=== PATIENT | male | born 1940 | race Caucasian/White ===

== ENCOUNTER 2016-12-13 15:35 | Inpatient (IN) | payer MEDICARE, OTHER ==
[~2016-12-13] VITALS: Ht 168.9 cm; Wt 124.1 kg
[~2016-12-13 15:35] MED LIST: ACET325T51 PO; ALBU8.5H4 IH; CLOT30SO TP; CRAN1TAB5 PO; GLIP10TA10 PO; GLUC-123 PO; INSU100V7 SUBQ; LISI-571 PO; LOVA40TA PO; METO25TA6 PO; MULT-1073 PO; RIVA20TA PO; TIOT18CA3 IH
[2016-12-13 15:43] VITALS: BP 121/65; PULSE 82; RESP 22; O2SAT 99
--- NOTE | 2016-12-13 16:10 | ED.REPORT ---
HPI-General Illness Date of Service Dec 13, 2016 ED Provider: Dr. Anastasia Terry Patient is a 76-year-old male with a history of bladder and prostate cancer who presents to the ED reporting generalized weakness onset yesterday. He finished a 2 week course of antibiotics four days ago for a UTI. Patient c/o associated itching, weakness, lethargic, diarrhea, and yellow stools. He has a spotted, red , rash across his back and continuously scratches his arms and neck. Patient reports that he still feels like he has a UTI despite taking his antibiotics as directed. He denies fever chills, chest pain, abdominal pain, and myalgia. Nursing Notes Stated Complaint: WEAKNESS Chief Complaint: General Complaint Nursing Notes Reviewed: Yes Allergies: Coded Allergies: indomethacin (Verified Allergy, Unknown, UNKNOWN, 12/13/16) niacin (Verified Allergy, Unknown, UNKNOWN, 12/13/16) simvastatin (Verified Allergy, Unknown, UNKNOWN, 12/13/16) Uncoded Allergies: BUPROPIRON (Allergy, Unknown, HYPERGLYCEMIA, 12/13/16) Scheduled Albuterol HFA (Proair HFA) 8.5 Gm Hfa.aer.ad 2 PUFFS INHALATION Q4H Clotrimazole 1% (Clotrimazole 1%) 30 Ml Solution 30 ML TP BID Cranberry Conc/C/Bacill Coag (Cranberry Tablet) 1 Each Tablet 2 EACH PO DAILY Glipizide (Glipizide) 10 Mg Tablet 10 MG PO BID Glipizide (Glipizide) 10 Mg Tablet 10 MG PO BID Gluc/Dontae-MSM#2/C/D3/Marcos/Born (Racgovdovv-Skeddlzgjgb-YDV Tab) 1 Each Tablet 1 EACH PO DAILY Insulin Glargine (Lantus U100 Insulin Vial) 100 Unit/Ml Vial 40 UNIT SUBQ QAM Insulin Glargine (Lantus U100 Insulin Vial) 100 Unit/Ml Vial 32 UNIT SUBQ QPM Insulin Glargine (Lantus U100 Insulin Vial) 100 Unit/Ml Vial 1 UNIT SUBQ DAILYWL Insulin Glargine (Lantus U100 Insulin Vial) 100 Unit/Ml Vial 1 UNIT SUBQ HS Lisinopril (Lisinopril) 5 Mg Tablet 5 MG PO DAILY Lovastatin (Lovastatin) 40 Mg Tablet 40 MG PO HS Metoprolol Tartrate (Metoprolol Tartrate) 25 Mg Tablet 25 MG PO BID Multivits-Min/FA/Lycopene/Lut (Centrum Silver Tablet) 1 Each Tablet 1 EACH PO DAILY Rivaroxaban (Xarelto) 15 Mg Tablet 15 MG PO QPM Rivaroxaban (Xarelto) 15 Mg Tablet 15 MG PO DAILYWD Tiotropium [employer] [place] [employer] (Spiriva) 18 Mcg Cap.w.dev 1 CAP IH DAILY Tiotropium [employer] (Spiriva) 18 Mcg Cap.w.dev 18 MCG IH MORNING Scheduled PRN Acetaminophen (Acetaminophen) 325 Mg Tablet 325 MG PO Q4H PRN PRN For Fever Acetaminophen (Acetaminophen) 325 Mg Capsule 325 MG PO PRN For Pain Albuterol HFA (Proair HFA) 8.5 Gm Hfa.aer.ad 2 PUFFS INHALATION Q4H PRN PRN For Shortness of Breath Clotrimazole (Itch Relief) 1 % Cream..g. 15 GM TP PRN For Itching General Time Seen by MD: 16:10 Chief Complaint Weakness Hx Obtained From: Patient, Spouse Arrived By: Walk-in Sudden in Onset?: Yes Onset Occurred: 1 day ago Symptom Duration: Since onset Severity: Current: No pain currently Recent Healthcare: Recent doctor visit Similar Sx Previous: Yes Past Medical History Past Medical History bladder and prostate cancer DVT Reports: Hyperlipidemia Past Surgical History baldder reconstruction prostate surgery Reports: Appendectomy, Cholecystectomy Smoking History Former Smoker Social History Other Social History: Good social support Ambulatory Status Independent Review of Systems yellow stools Full Review of Systems Constitutional: Reports: Weakness - generalized, Denies: Chills, Fever Cardiovascular: Denies: Chest pain GI: Reports: Diarrhea, Denies: Abdominal pain Musculoskeletal: Denies: Myalgia Skin: Reports Itching, Reports Rash (on back) Complete sys rev & neg: except as marked. Physical Exam Vital Signs Vital Signs Date Time Temp Pulse Resp B/P Pulse Ox O2 Delivery O2 Flow Rate FiO2 12/13/16 18:27 82 21 105/53 100 Room Air 12/13/16 18:00 84 16 101/36 100 Room Air 12/13/16 15:43 36.4 82 22 121/65 99 Room Air Initial VS: Reviewed, Vital signs normal General/Constitutional: Well-developed, Well-nourished Head / Eyes: Atraumatic, Normocephalic, PERRL Neck: Supple, Non-tender, Full range of motion Respiratory: Breath sounds normal, Clear to auscultation, No respiratory distress Cardiovascular: Regular rate & rhythm, Heart sounds normal, Intact distal pulses Abdomen / GI: Soft, Non-tender, No guarding, No rebound, No distention Back: No CVA tenderness Extremities: Vascular intact, Neuro intact, No swelling, No tenderness Skin: Warm, Dry, No cyanosis Psychiatric: Mood/affect normal, Behavior normal, Normal thought content General/Constitutional: Awake, Alert, Well appearing Head / Eyes: PERRL, No nystagmus Neurologic: Oriented X3, No motor deficits, No sensory deficits Drowsy Interpretation & Diagnostics Lab Results Interpretation Result Diagram: 12/13/16 1609 12/13/16 2205 Test 12/13/16 16:09 12/13/16 16:49 12/13/16 16:55 White Blood Count 9.9th/mm3 (3.8-10.1) Red Blood Count 4.40mil/mm3 (4.40-5.80) Hemoglobin 12.4g/dL (13.8-17.2) Hematocrit 38.2% (41.0-50.0) Mean Corpuscular Volume 86.8fL (81-100) Mean Corpuscular Hemoglobin 28.2pg (27.0-35.0) Mean Corpuscular Hemoglobin Concent 32.5% (32.0-37.0) Red Cell Distribution Width 16.9% (12.3-15.4) Platelet Count 307bil/L (150-400) Neutrophils (%) (Auto) 83.3% (40-74) Lymphocytes (%) (Auto) 9.2% (14-46) Monocytes (%) (Auto) 5.6% (4-12) Eosinophils (%) (Auto) 1.2% (0-5) Basophils (%) (Auto) 0.2% (0-3) Prothrombin Time 12.4sec (8.1-12.5) Prothromb Time International Ratio 1.16ratio Uric Acid 7.4mg/dL (2.6-7.2) Magnesium Level 2.0mg/dL (1.6-2.6) Total Bilirubin 4.8mg/dL (0.0-1.2) Aspartate Amino Transf (AST/SGOT) 111U/L (0-50) Alanine Aminotransferase (ALT/SGPT) 246U/L (0-44) Alkaline Phosphatase 598U/L (25-160) Total Protein 7.9g/dL (6.4-8.4) Albumin 3.9g/dL (3.4-5.0) Hold Hyman Top Tube Received (Received) Urine Color Yellow (YELLOW) Urine Appearance Clear (CLEAR,HAZY) Urine pH 7.0 (5.0-8.0) Urine Specific [place] 1.005 (1.003-1.035) Urine Protein 30mg/dL (NEG,TRACE) Urine Glucose (UA) 100mg/dL (NEGATIVE) Urine Ketones Negativemg/dL (NEGATIVE) Urine Occult Blood Small (NEGATIVE) Urine Nitrite Negative (NEGATIVE) Urine Bilirubin Negative (NEGATIVE) Urine Urobilinogen 1.0mg/dL (NORMAL) Urine Leukocyte Esterase Trace (NEGATIVE) Urine RBC 0-2/hpf (0-2) Urine WBC 0-5/hpf (0-5) Urine Epithelial Cells None/hpf (NONE-MOD) Urine Crystals None seen (NONE SEEN) Urine Bacteria Few/hpf (NONE-FEW) Urine Hyaline Casts None/lpf (NONE) Urine Granular Casts None seen (NONE SEEN) Urine Waxy Casts None seen (NONE SEEN) Urine Red Blood Cell Casts None seen (NONE SEEN) Urine White Blood Cell Casts None seen (NONE SEEN) Urine Mucus None seen (None Seen) Urine Trichomonas None seen (NONE SEEN) Urine Yeast None (NONE SEEN) Urinalysis Comment None Urine Culture Reflexed Indicated Urine Random Creatinine 154mg/dL (22-328) Urine Random Sodium 114mEq/L Urine Random Potassium 12.6mEq/L ECG Interpretation Time: 18:49 Interpreted by: ED physician Normal ECG Interpretation: Normal ECG w/ rate of... (81), Normal rate, Normal sinus rhythm, No acute ischemic changes Re-Eval/Medical Decision Med Decision/Clinical Course The patient was sent here for labs. He struggled to be in worsening renal failure and has an acute hepatitis. This likely that his hepatitis could be from his Bactrim use or he may have an infection. The patient really did not admitted for hydration. He is also noted to be hyperkalemic and an EKG was obtained and did not show any peaked T waves. Counseled Regarding: Diagnosis, Lab results, Need for admission Discharge & Departure Primary Impression: Acute renal failure Acute renal failure type: unspecified Qualified Code: N17.9 - Acute kidney failure, unspecified Additional Impression: Hepatitis Disposition: ADMITTED TO HOSPITAL Discharge Condition All VS Reviewed: Yes Condition: Stable Referrals: Garry Grullon MD (PCP) Alexis Attestation Portion of this note were transcribed by Celia Oh. I, Dr. Terry, personally performed the history, physical exam, and medical decision-making: I reviewed and confirmed the accuracy for the information in the transcribed note. Signed by: alexis Clifford, 12/13/16 0000 copies to: Garry Grullon MD, Jena M MD Dec 13, 2016 16:10 CELIA OH Dec 13, 2016 16:39 performed the history, physical exam, and medical decision-making: I reviewed and confirmed the accuracy for the information in the transcribed note. Signed by: alexis Clifford, 12/13/16 0000 copies to: Garry Grullon MD, Jena M MD Dec 13, 2016 16:10 CELIA [place] Dec 13, 2016 16:39
[2016-12-13] MEDS: 0.9% Sodium Chloride 1,000 ML IV SCH ×7 (16:53→23:37)
[2016-12-13 16:56] LABS: BASOPHILS % (AUTO) 0.2 % (0-3); EOSINOPHILS % (AUTO) 1.2 % (0-5); MONOCYTES % (AUTO) 5.6 % (4-12); Mean Corpuscular Hemoglobin 28.2 pg (27.0-35.0); Mean Corpuscular Volume 86.8 fL (81-100); NEUTROPHILS % (AUTO) 83.3 % (40-74); Platelet Count 307 bil/L (150-400)
[2016-12-13 16:58] LABS: INR 1.16 ratio
[2016-12-13 17:14] LABS: APPEARANCE,URINE CLEAR (CLEAR,HAZY); COLOR,URINE YELLOW (YELLOW)
[2016-12-13 17:15] LABS: OCCULT BLOOD,URINE SMALL (NEGATIVE)
[2016-12-13] MEDS ORDERED: ALBU8.5H2 INHALATION ×2 (17:54→21:08)
[2016-12-13] MEDS ORDERED: RIVA15TA PO ×2 (17:54→21:08)
[2016-12-13 18:00] VITALS: BP 101/36; PULSE 84; RESP 16; O2SAT 100
[2016-12-13] MEDS ORDERED: Lactulose 20 Gm/30 mL 30 mL Syrup PO ONE (18:25)
[2016-12-13 18:27] VITALS: BP 105/53; PULSE 82; RESP 21; O2SAT 100
--- NOTE | 2016-12-13 18:38 | PCM.HPMED ---
Subjective Date of Service Dec 13, 2016 Primary Provider: Admitting Physician: Primary Care Physician: Garry Grullon MD Attending Physician: Chief Complaint: Generalized weakness HISTORY was OBTAINED FROM PATIENT / [facility] NOTES History of present illness Thomas Whittaker has had 3 days of weakness and fatigue and itch sent by primary care with new elevated creatinine of 4, recent Bactrim use x 2weeks for recurrent/prolonged UTI with history of bladder cancer and bladder reconstruction history. Concurrent diarrhea with the Bactrim, prior to that bronchitis treated with azithromycin x 1 week then w/ amoxicilin for another week end of oct 2016. On 12/10/2016, rising LFTs and creatinines noted by oncologist who deemed due to antibiotic use. yellow stool. ongoing urinary odor/discoloration w/ minimal bactrim benefit. ongoing jock itch/rash penile/scrotal. self caths. associated low bp throughout several days SBP 90s. no new medications/ no new herbs. never cardiac issues. In the ER IV fluids 12/10/2016-oncologist visit Review of Systems - none of the following - F/C/sick contact / wt change/ ELLIOTT / sob / cough / cp / acid reflux / n/v / bleeding/bruising / change in voiding ambulates chronic leg swelling - disliked trial of HCTZ in the past tremors more evident lately per FAMILY HX no prostate cancer SOCIAL HX former smoker, no transfusions never illicit drug use MEDICATIONS [id number] mg Scheduled Clotrimazole 1% (Clotrimazole 1%) 30 Ml Solution 30 ML TP BID Cranberry Conc/C/Bacill Coag (Cranberry Tablet) 1 Each Tablet 2 EACH PO DAILY Glipizide (Glipizide) 10 Mg Tablet 10 MG PO BID Gluc/Dontae-MSM#2/C/D3/Marcos/Born (Pndkyrygvg-Oevbycsvztv-MPD Tab) 1 Each Tablet 1 EACH PO DAILY Insulin Glargine (Lantus U100 Insulin Vial) 100 Unit/Ml Vial 40 UNIT SUBQ QAM Insulin Glargine (Lantus U100 Insulin Vial) 100 Unit/Ml Vial 32 UNIT SUBQ QPM Lisinopril (Lisinopril) 5 Mg Tablet 5 MG PO DAILY Lovastatin (Lovastatin) 40 Mg Tablet 40 MG PO HS Metoprolol Tartrate (Metoprolol Tartrate) 25 Mg Tablet 25 MG PO BID Multivits-Min/FA/Lycopene/Lut (Centrum Silver Tablet) 1 Each Tablet 1 EACH PO DAILY Rivaroxaban (Xarelto) 20 Mg Tablet 15 MG PO daily started 10-04- Tiotropium [place] (Spiriva) 18 Mcg Cap.w.dev 1 CAP IH DAILY Scheduled PRN Acetaminophen (Acetaminophen) 325 Mg Tablet 325 MG PO Q4H PRN PRN For Fever Albuterol HFA (Albuterol HFA) 8.5 Gm Hfa.aer.ad 2 PUFF IH Q4 PRN PRN For Wheezing Past Medical/Surgical HX IVC filter/cholecystectomy/appendectomy/ORIF right fibula Hyperlipidemia hypertension Diabetes mellitus Sinus congestion/cataracts PE/DVT postop, 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 Allergies Coded Allergies: indomethacin (Verified Allergy, Unknown, UNKNOWN, 12/13/16) niacin (Verified Allergy, Unknown, UNKNOWN, 12/13/16) simvastatin (Verified Allergy, Unknown, UNKNOWN, 12/13/16) Uncoded Allergies: BUPROPIRON (Allergy, Unknown, HYPERGLYCEMIA, 12/13/16) PMH Social History Hx Alcohol Use: Yes (rare) Hx Substance Use: No Hx Tobacco Use: Yes (quit 12 years ago) Smoking Status: Former Smoker Exam Vital Signs Vital Sign - Last Date Time Temp Pulse Resp B/P Pulse Ox O2 Delivery O2 Flow Rate FiO2 12/13/16 18:27 82 21 105/53 100 Room Air 12/13/16 15:43 36.4 Lab and Diagnostics Labs Exam on admission NAD A and O x 3 mood affect WNL NC/AT no icterus no injected eyes EOMI PERRL /no pharyngeal lesions/ no oral lesions / hearing intact / dry mouth Supple neck CTAB equal chest rise / no accessory muscle use / speaks in full sentences / no rrw RRR S1 S2 / no mrg / 2+ radial pulses Soft nt nd + BS no hepatosplenomegaly moderate edema shins no cyanosis no ecchymosis of lower extremities No rash / no jaundice STOVER EKG SR no ST elevations Trop neg INR 1.16 procalcitonin lactic acid UA negative for infection LFT AST ALT alkaline phosphatase are elevated but less than November 2016, bilirubin is more elevated worse Imaging 11/2016 -: 12/06/16 0913 PROCEDURE: CT CHEST, ABDOMEN AND PELVIS WITHOUT CONTRAST ([id number]) INDICATIONS: RESECTED BLADDER CANCER, SURVEILLANCE TECHNIQUE: After the administration of oral contrast, 5 mm thick sections acquired from the lung apices to the symphysis pubis. 5 mm thick coronal and sagittal reformats acquired, with additional 7 mm coronal MIP reformats through the lungs. For radiation dose reduction, the following was used: automated exposure control, adjustment of mA and/or kV according to patient size. COMPARISON: [facility], CT, CT CHEST ABD PELVIS WO CON, 10/20/2015 , 12:15. [facility], CT, CHEST/ABD/PELVIS/ WO CON (PNL), 09/21/2014 , 9:56. [facility], CT, CHEST/ABD/PELVIS/ WO CON (PNL), 03/14/2014, 11:29. [facility], CT, CHEST/ABD/PELVIS/ WO CON (PNL), 06/08/2013, 10:59. [facility], CT, CHEST/ABD/PELVIS/ WO CON (PNL), 08/11/2012, 8:49. [facility], CT, CHEST/ABD/PELVIS/ WO CON (PNL), 01/01/2012, 10 :27. [facility], CT, ABD/PELVIS W/O CON (PNL), 07/17/2011, 11: 04. CT, CHEST/ABD/PELVIS/ WO CON (PNL), 01/04/2011, 12:13. [facility], CT, CHEST/ABD/PELVIS/ WO CON (PNL), 06/18/2010, 12:03. CT, CHEST ANGIO-PE, 04/03/2010, 13:06. CT, ABD/PELVIS W&WO CON (PNL), 02/22/2010, 14:10. CT, ABD/PELVIS W&WO CON (PNL), 05/24/2009, 18:52. FINDINGS: Image quality: Excellent. CHEST: Lungs and pleura: No acute pulmonary opacities. Mild emphysematous disease is noted in the lung apices. No pleural effusions or pneumothorax. Central and peripheral airways are patent are normal in caliber. Mediastinum: Heart size is normal. Atherosclerotic calcifications are noted in the aorta, great vessels and the coronary vasculature. No pericardial effusion. No mediastinal adenopathy by CT size criteria. Thoracic aorta and central pulmonary arteries are normal in size. Esophagus is normal in caliber. No hiatal hernia. Chest wall: No axillary or supraclavicular adenopathy by size criteria. Thyroid gland is normal where visualized. ABDOMEN: Solid organs: Liver and spleen are normal in size. Gallbladder is surgically absent. Pancreas is normal in contours. No adrenal nodules. Both kidneys are normal in size, without hydronephrosis or nephrolithiasis. Probable cysts in the midpole of the right kidney and the superior pole left kidney aren't stable compared to prior examination. Ureteral diversion procedure has been performed. Peritoneum and bowel: Small and large bowel loops are normal in caliber and wall thickness. Circumferential wall thickening involving the rectum is noted. No free fluid or air. Nodes and vessels: No retroperitoneal or mesenteric adenopathy by size criteria. 3.8 cm infrarenal abdominal aortic aneurysm is stable compared to prior examination. IVC filter is stable compared to prior examination. Miscellaneous: No ventral hernias. PELVIS: Genitourinary: Postsurgical changes compatible with cystectomy and neobladder formation are stable compared to prior examination. Miscellaneous: No inguinal hernias or adenopathy. Bones: No suspicious bony lesions. No vertebral body compression fractures. Spine degenerative disc disease and facet arthropathy are noted. Wound IMPRESSION: 1. Stable examination compared to 10/20/2015. 2. No evidence of recurrent or metastatic bladder cancer. 3. Intrarenal abdominal aortic aneurysm stable compared to prior examinations. 4. Atherosclerosis including the coronary vasculature. 5. Mild bilateral lung emphysema. 6. Status post cystectomy and neobladder formation. 7. The circumferential wall thickening involving the rectoanal junction. Please correlate with direct physical findings to exclude neoplastic process. Result Diagram: 12/13/16 1609 12/13/16 1609 Assessment & Plan Active issues and reason for admission AK I with elevated potassium/hyponatremia -- IV fluid normal saline/duo nebs/lactulose -- Creatinine baseline 1.4-1.5 --hold lisinopril --serial labs REcurrent UTI symptoms --treat penile/scrotal rash - nystatin, consider parental azole when LFTs normalizes --UA unremarkalbe --dey placement for intake / output measurements - self caths at home New Elevated transaminitis/hyperbilirubinemia since November 2016 with a history of cholecystectomy, likely due to low BP -- Mild hypotension in the ER 101/36, heart rate 84 -- CT abdomen and pelvis November 2016 reviewed --hep panel pending, no risk factors. -- hold lisinopril/beta tara Chronic issues known prior to admission, present on admission DM, Dyslipidemia DVT/PE hx COPD --hold statin, contineu home lantus BID, SSI, tiotropium Diet DM/renal DVT prophylaxis xaralto scd ambulate Code full Disposition inpt Assessment and plan were discussed with patient family. Rhea Anderson MD Dec 13, 2016 18:38
[2016-12-13] MEDS ORDERED: Alum-Mag Hydrox-Simeth 30 mL Suspension PO PRN (19:00)
[2016-12-13] MEDS ORDERED: Glucose 40% Oral Gel 15 Gm Tube PO PRN (19:15)
[2016-12-13] MEDS ORDERED: Albuterol 1.25 mg/3 mL Inhalation Solution NEB PRN (19:15)
[2016-12-13] MEDS ORDERED: Calcium GLUCO 10% (mEq) Inj 4.65 MEQ in Dextrose 5% 50 ML IV ONE (19:20)
[2016-12-13 19:36] VITALS: BP 154/71; PULSE 85; RESP 22; O2SAT 98
[2016-12-13] MEDS: Albuterol 1.25 mg/3 mL Inhalation Solution NEB SCH (20:30)
[2016-12-13] MEDS ORDERED: ACET325C PO (21:08)
[2016-12-13] MEDS ORDERED: INSU100V7 SUBQ ×2 (21:08)
[2016-12-13] MEDS ORDERED: TIOT18CA3 IH (21:08)
[2016-12-13] MEDS ORDERED: CLOT15CR66 TP (21:08)
[2016-12-13] MEDS ORDERED: GLIP10TA10 PO (21:08)
[2016-12-13] MEDS: Insulin LISPRO 300 Unit/3 mL Inj SUBQ SCH (22:00)
[2016-12-13] MEDS: Albuterol-Ipratropium 3 mL Inhalation Solution NEB ONE ×2 (22:53→22:54)
--- NOTE | 2016-12-13 23:09 | NUR ---
Critical lab results technician called with critical BUN lab of 84, paged assembler 1st shift hospitalist via [employer] page. Awaiting response.
[2016-12-13] MEDS: Insulin GLARgine 100 Unit/mL Syringe SUBQ SCH (23:27)
[2016-12-14] VITALS (8 sets, daily range): BP systolic 99–148; BP diastolic 57–71; PULSE 92–103; RESP 18–20; O2SAT 98–99
[2016-12-14] MEDS: 0.9% Sodium Chloride 1,000 ML IV SCH ×9 (00:20→10:20)
[2016-12-14] MEDS: Heparin 5,000 Unit/mL Inj SUBQ SCH ×3 (03:25→16:50)
[2016-12-14 05:07] LABS: Hepatitis A Antibody IgM Negative (Negative); Hepatitis B Core Antibody IgM Negative (Negative)
[2016-12-14 06:24] LABS: Phosphorus 5.6 mg/dL (2.5-4.9)
[2016-12-14 06:31] LABS: Mean Corpuscular Hemoglobin 28.3 pg (27.0-35.0); Mean Corpuscular Volume 86.5 fL (81-100)
--- NOTE | 2016-12-14 07:52 | NUR ---
Admit Patient arrived at 1920 via gurney, able to transfer laterally independently. A&O, able to make needs known. denies pain at this time.
[2016-12-14] MEDS: Insulin LISPRO 300 Unit/3 mL Inj SUBQ SCH ×4 (08:00→21:37)
[2016-12-14] MEDS: Albuterol 1.25 mg/3 mL Inhalation Solution NEB SCH ×2 (08:07→20:02)
[2016-12-14] MEDS: Tiotropium 18mcg/Cap 5 Capsule Inhaler Kit INHALATION SCH ×2 (08:30→10:18)
[2016-12-14] MEDS: Insulin GLARgine 100 Unit/mL Syringe SUBQ SCH (08:34)
[2016-12-14] MEDS ORDERED: Lactulose 20 Gm/30 mL 30 mL Syrup PO ONE (10:00)
--- NOTE | 2016-12-14 12:40 | DRSVH ---
PROCEDURE: US ABDOMEN ([id number]) INDICATIONS: elevated lfts TECHNIQUE: Real-time scanning was performed of the abdominal and retroperitoneal organs, with image documentatio n. COMPARISON: None. FINDINGS: Liver: Liver is normal in size and homogeneous in echotexture. The Liver has a diffusely increased e chotexture which typically represents fatty infiltration; however, finding is nonspecific and other e tiologies including hepatic cirrhosis can have a similar appearance. Please correlate with clinical a nd laboratory findings. Gallbladder: Gallbladder is surgically absent Biliary ducts: Intrahepatic bile ducts are non-dilated. Extrahepatic bile duct caliber measures 4.8 mm. Normal is 6-7 mm or less in diameter, or 10 mm or less post-cholecystectomy. Pancreas: Visualized portions of the pancreas are sonographically normal. Spleen: Spleen is normal in size and homogeneous in echotexture. Kidneys: Kidneys are normal in size and echotexture. Right kidney measures 12.6 cm long; left kidne y measures 13.5 cm long. No hydronephrosis or nephrolithiasis. No solid masses. Bilateral renal cys ts are noted. Aorta: Secured by bowel gas and cannot be evaluated. Iliacs: Secured by bowel gas and cannot be evaluated. IVC: Intrahepatic inferior vena cava is patent. Miscellaneous: No free abdominal fluid. Panda catheter noted in the bladder. IMPRESSION: 1. Echogenic liver. Finding typically represents fatty infiltration; however, finding is nonspecific and correlation with clinical and laboratory findings is recommended to exclude other etiologies incl uding hepatic cirrhosis. 2. Status post cholecystectomy. 3. Nonvisualization of the abdominal aorta and the iliac vasculature secondary to bowel gas. 4. Renal cysts. Dictated by: Claudette Morgan MD, PhD on 12/14/2016 at 12:37 Approved by: Claudette Morgan MD, PhD on 12/14/2016 at 12:38
--- NOTE | 2016-12-14 12:56 | NUR ---
Case Management: IMM given and explained to pt and at 12:40. Columba ZHU RN
[2016-12-14] MEDS ORDERED: SODIUM CHLORIDE 0.45% IV SCH (13:27)
[2016-12-14] MEDS ORDERED: SODIUM BICARB IV SCH (13:27)
--- NOTE | 2016-12-14 13:30 | PCM.PNMED ---
Subjective Date of Service Dec 14, 2016 Subjective Tired, no other complaints, says his hand tremor is chronic, at least a couple of years, and he doesn't think it worsens with albuterol. Exam Vital Signs Vital Sign - Last Date Time Temp Pulse Resp B/P Pulse Ox O2 Delivery O2 Flow Rate FiO2 12/14/16 10:02 103 12/14/16 09:57 36.3 20 127/65 98 Nasal Cannula 2.00 Intake and Output 12/13/16 12/13/16 12/14/16 Cumulative From/Thru 15:00 23:00 07:00 12/13/16 15:43 - 12/14/16 06:39 Intake Total 1000 ml 615 ml 1615 ml Balance 1000 ml 615 ml 1615 ml IV Total 1000 ml 615 ml 1615 ml Exam Alert and oriented Heart: reg Lungs: clear Abd: protuberant (he says his usual), tympanitic but soft with normal BT Extrem: mild tremor of the hands, no pedal edema IVs and Medications Medications Reviewed: Medications were reviewed in detail Lab and Diagnostics Result Diagram: 12/14/16 0530 12/14/16 0530 Assessment & Plan ARF with elevated potassium/hyponatremia/metabolic acidosis, most likely due to Bactrim -- Nephrology has consulted, note still pending -- IV fluid as per nephrology changed to 1/2NS with an amp of bicarb and oral bicarb started -- Kayexylate per nephrology -- Creatinine baseline 1.4-1.5 -- lisinopril held -- serial labs -- renal ultrasound: Kidneys are normal in size and echo texture. Right kidney measures 12.6 cm long; left kidney measures 13.5 cm long. No hydronephrosis or nephrolithiasis. No solid masses. Bilateral renal cysts are noted. 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 s/p prostatectomy bladder reconstruction, adjuvant chemotherapy, self catheterizes, has Recurrent UTIs Recurrent UTI symptoms --treat penile/scrotal rash - nystatin --UA unremarkalbe --dey placement for intake / output measurements - self caths at home New Elevated transaminitis/hyperbilirubinemia since November 2016 with a history of cholecystectomy, possibly due to low BP -- Mild hypotension in the ER 101/36, heart rate 84 -- CT abdomen and pelvis (without contrast) November 2016 with unremarkable liver and bile ducts -- abd u/s today: Liver: Liver is normal in size and homogeneous in echotexture. The Liver has a diffusely increased echotexture which typically represents fatty infiltration; however, finding is nonspecific and other etiologies including hepatic cirrhosis can have a similar appearance. Gallbladder: Gallbladder is surgically absent. Biliary ducts: Intrahepatic bile ducts are non-dilated. Extrahepatic bile duct caliber measures 4.8 mm. Normal is 6-7 mm or less in diameter, or 10 mm or less post-cholecystectomy. -- hep panel negative -- hold lisinopril/beta tara Diabetes Mellitus - continue home lantus BID, SSI Other Chronic issues known prior to admission, present on admission - Dyslipidemia - statin held due to abnl LFT - DVT/PE hx - COPD - continue tiotropium VTE Mechanical Devices: Intermittant Pneumatic CD Yudelka Perez MD Dec 14, 2016 13:30
--- NOTE | 2016-12-14 13:42 | CONS ---
[address] [address] CONSULTATION REPORT PATIENT: ANGEL SOLIS I : 1940 MR#: [id number] ADMIT: 12/13/2016 JOB ID: [id number] DATE OF SERVICE: 12/14/2016 RENAL CONSULTATION: HISTORY: The patient is a very pleasant 76-year-old white male who was admitted to [facility] for acute kidney injury. Renal consultation is being sought for further evaluation of his renal dysfunction. He has a rather complicated urinary tract history. Approximately seven years ago, he was found to have bladder cancer and underwent a radical cystectomy with a neobladder reconstruction from his small intestine. He had follow up chemotherapy and states that he has been doing fair since that time. His biggest issue is that he has had recurrent urinary tract infections. He denies any stone formation with this. He does state that he has to self cath himself several times a day. Approximately three weeks ago, he developed symptoms of a urinary tract infection and was placed on full strength Bactrim for 10 days. He completed a course of his medication and states that prior to this he had been treated with both amoxicillin and azithromycin approximately a month before for a nonspecific upper respiratory tract infection. Of note, his creatinine level in June of 2016 was 1.68, and on December 05, 2016, it was 2.02. He states that he had been feeling quite weak, with some nausea but no vomiting. He denies any vomiting, diarrhea, cough, wheezing, fever, chills or rash. He does note that he has had some generalized pruritus for the last week or so and he has a chronic tremor which has worsened considerably in the last week or so. He also states that he has had some loose stool but no diarrhea. In addition, he states that he has had dark urine for the last week or so. In the emergency department, he was found to be hypotensive and tachycardic. At time of admission, his BUN and creatinine were 83 and 3.3 respectively. His liver function studies were all significantly elevated and his potassium was 5.9. I was contacted yesterday evening by the hospitalist and made fluid recommendations. This morning the patient states that he feels considerably better. However, his tremor persists. His blood pressure is improved and his creatinine has come down to 85 and 3.96. PAST MEDICAL HISTORY: Is significant for bladder cancer and radical cystectomy with construction of a neobladder. Past medical history is also significant for some probable chronic kidney disease secondary to chronic interstitial nephritis for recurrent urinary tract infections. His past medical history is also significant for prior deep venous thrombosis, hyperlipidemia, insulin-requiring diabetes mellitus, COPD, essential tremor, morbid obesity and what sounds like benign prostatic hypertrophy. PAST SURGICAL HISTORY: Is significant for multiple cystoscopies with bladder cystectomy as detailed above. He also has had an IVC filter, cholecystectomy, appendectomy, ORIF of the right fibula. He is allergic to a BUPROPION, INDOMETHACIN, NIACIN, and SIMVASTATIN. SOCIAL HISTORY: He has a history of tobacco use but states he quit 12 years ago. He takes ethanol on rare occasions. He is normally active in his limited activities of daily living which has been considerably less with his recent illness. His medications at time of my evaluation, include insulin, Spiriva, oxycodone, albuterol. FAMILY HISTORY: Noncontributory. REVIEW OF SYSTEMS: Is detailed above. Otherwise is noncontributory. PHYSICAL EXAMINATION: Revealed a moderately obese 76-year-old gentleman who was alert and oriented x3, in no distress at time of my evaluation. HEENT examination is remarkable for some generalized flushing of the face and multiple telangiectasias were noted over the malar area. Mucous membranes were somewhat dry and sclerae were pale. Neck is supple without adenopathy, thyromegaly, or jugular venous distention. Lungs are clear to auscultation though somewhat diminished. He also had evidence of an increased AP diameter. Heart was regular and rhythmical with a soft systolic murmur. Abdomen was soft, but somewhat distended with diminished bowel sounds. There was no tenderness, rebound, guarding, masses or hepatosplenomegaly. Extremities did not show any evidence of any clubbing, cyanosis or edema. Skin turgor was diminished and there is no evidence of any rashes. LABORATORY EXAMINATION: This morning, his sodium is 138, potassium 5.8, chloride 113, bicarbonate is 8. BUN and creatinine were 85 and 3.96 with a glucose of 143. His uric acid was 7.4, phosphorus is 5.6, total bili was 4, alkaline phosphatase was 428, AST was 98, ALT was 203. Urinalysis showed a specific gravity of 1.005, pH was 7. Tests for protein and glucose were both positive as was test for occult blood. Urinalysis was personally reviewed by me and revealed a large amount of mucus with a number of dirty brown casts consistent with acute tubular necrosis. IMPRESSION: 1. Acute tubular necrosis secondary to acute interstitial nephritis from Bactrim and dehydration. 2. Mixed anion gap and non-anion gap metabolic acidosis secondary to #1. 3. Hyperkalemia. 4. Elevated liver function studies secondary to severe dehydration and hypoperfusion. RECOMMENDATION: I would like to get a right upper quadrant and a renal ultrasound along with an acetaminophen level. I would also like to change his maintenance IV to half-normal saline with 1 amp of sodium bicarbonate to run at 80 mL an hour. Once again, I would like to thank you for allowing me to participate in the care of this most pleasant but unfortunate patient. I will be following him closely with you.
[2016-12-14] MEDS: SODIUM BICARB IV SCH (14:16)
[2016-12-14] MEDS: SODIUM CHLORIDE 0.45% IV SCH (14:16)
[2016-12-14] MEDS: Ondansetron 2 mg/mL 2 mL Inj IVPUSH PRN (18:23)
--- NOTE | 2016-12-14 19:15 | NUR ---
Nausea Patient had 3 short episodes of nausea this shift. Patient declined any anti-nausea medication till end of shift due to quick nature of nausea bouts. After anti-nausea medication patient reports nausea is staying away. Care is ongoing.
[2016-12-15] VITALS (9 sets, daily range): BP systolic 137–166; BP diastolic 61–77; PULSE 95–108; RESP 18–20; O2SAT 94–98
[2016-12-15] MEDS: SODIUM BICARB IV SCH ×5 (00:34→22:21)
[2016-12-15] MEDS: SODIUM CHLORIDE 0.45% IV SCH ×5 (00:34→22:21)
[2016-12-15] MEDS: Heparin 5,000 Unit/mL Inj SUBQ SCH ×3 (01:06→17:11)
--- NOTE | 2016-12-15 01:11 | NUR ---
GI; pt c/o dry mouth. Popsickle given- pt tolerated well.
[2016-12-15] MEDS ORDERED: 0.9% Sodium Chloride 500 ML ONE (07:26)
[2016-12-15] MEDS: Ondansetron 2 mg/mL 2 mL Inj IVPUSH PRN (07:39)
[2016-12-15] MEDS: Insulin LISPRO 300 Unit/3 mL Inj SUBQ SCH ×4 (08:00→22:00)
[2016-12-15] MEDS: Tiotropium 18mcg/Cap 5 Capsule Inhaler Kit INHALATION SCH (08:46)
[2016-12-15] MEDS: Insulin GLARgine 100 Unit/mL Syringe SUBQ SCH ×2 (08:49→18:15)
--- NOTE | 2016-12-15 10:43 | NUR ---
MARKUS signed by patient Addendum: 12/16/16 at 1616 by PERRY BROWN signed by patient's
--- NOTE | 2016-12-15 12:33 | PCM.PNMED ---
Subjective Date of Service Dec 15, 2016 Subjective The patient has had some improvement in the last 24 hours. He has had a 1940 and was 1900 in urine output. His blood pressure has been fair with one isolated drop in his systolic blood pressure yesterday. He states that he has had some ongoing nausea, anorexia, vomiting, and constipation. He also complains of some increased abdominal girth.\ This morning his sodium is 143, potassium 6.0, chloride 1:15, bicarbonate of 10 BUN is slightly elevated at 94. His creatinine has come down to 3.79. His liver functions remain elevated but they are somewhat improved from yesterday. His acetaminophen level was 15. Exam Vital Signs Vital Sign - Last Date Time Temp Pulse Resp B/P Pulse Ox O2 Delivery O2 Flow Rate FiO2 12/15/16 11:25 36.6 107 20 163/67 98 Nasal Cannula 2.00 Intake and Output 12/14/16 12/14/16 12/15/16 Cumulative From/Thru 15:00 23:00 07:00 12/13/16 15:43 - 12/15/16 06:41 Intake Total 526 ml 693 ml 1101 ml 3935 ml Output Total 1500 ml 400 ml 250 ml 2150 ml Balance -974 ml 293 ml 851 ml 1785 ml Intake Oral 526 ml 300 ml 374 ml 1200 ml IV Total 393 ml 727 ml 2735 ml Output Urine Total 1500 ml 400 ml 250 ml 2150 ml # Bowel Movements 0 0 Exam Patient is awake and interactive today. Neck is supple without adenopathy thyromegaly or jugular venous distention. Lungs showed a few scattered rhonchi but otherwise were clear. Heart was irregularly irregular. And is distended with tympanic bowel sounds to percussion. No tenderness but he did feel some discomfort with palpation. There was no rebound or guarding noted. Extremities do not show any evidence of any clubbing cyanosis or edema. Skin turgor is good and nurse known rashes. Lab and Diagnostics Result Diagram: 12/14/16 0530 12/15/16 0907 Assessment & Plan Impression #1 acute on chronic kidney injury secondary to acute interstitial nephritis from Bactrim No. 2 non-anion gap and anion gap metabolic acidosis #3 hypotension secondary to #1 for chronic interstitial nephritis. #4 transaminitis secondary to hypoperfusion and shock liver Recommendations #1 over 2 restart his IV fluids with D5W and 3 amp of sodium bicarbonate at 80/hr would also like to give 45 g of Kayexalate orally now and I would like to check an JERMAINE sedimentation rate C3 to C4. We also need to closely follow his intake, output, and his lab. VTE Mechanical Devices: Intermittant Pneumatic CD Luis Mcintosh DO Dec 15, 2016 12:33
[2016-12-15] MEDS: Dextrose 5% 1,000 ML IV SCH (12:35)
--- NOTE | 2016-12-15 14:54 | PCM.PNMED ---
Subjective Date of Service Dec 15, 2016 Subjective Nausea improved, now new complaints Exam Vital Signs Vital Sign - Last Date Time Temp Pulse Resp B/P Pulse Ox O2 Delivery O2 Flow Rate FiO2 12/15/16 11:25 36.6 107 20 163/67 98 Nasal Cannula 2.00 Intake and Output 12/14/16 12/14/16 12/15/16 Cumulative From/Thru 15:00 23:00 07:00 12/13/16 15:43 - 12/15/16 06:41 Intake Total 526 ml 693 ml 1101 ml 3935 ml Output Total 1500 ml 400 ml 250 ml 2150 ml Balance -974 ml 293 ml 851 ml 1785 ml Intake Oral 526 ml 300 ml 374 ml 1200 ml IV Total 393 ml 727 ml 2735 ml Output Urine Total 1500 ml 400 ml 250 ml 2150 ml # Bowel Movements 0 0 Exam Sleeping, arouses easily to voice Heart: Reg Lungs: Clear Abd: protuberant but soft, NT Extrem: no pedal edema Lab and Diagnostics Result Diagram: 12/14/16 0530 12/15/16 0907 Assessment & Plan Impression #1 acute on chronic kidney injury secondary to acute interstitial nephritis from Bactrim No. 2 non-anion gap and anion gap metabolic acidosis #3 hypotension secondary to #1 for chronic interstitial nephritis. #4 transaminitis secondary to hypoperfusion and shock liver Recommendations #1 over 2 restart his IV fluids with D5W and 3 amp of sodium bicarbonate at 80/hr would also like to give 45 g of Kayexalate orally now and I would like to check an JERMAINE sedimentation rate C3 to C4. We also need to closely follow his intake, output, and his lab. ARF with elevated potassium/hyponatremia/metabolic acidosis, most likely due to Bactrim, creatinine sl improved today and had 1900 cc urine output -- renal ultrasound: Kidneys are normal in size and echo texture. Right kidney measures 12.6 cm long; left kidney measures 13.5 cm long. No hydronephrosis or nephrolithiasis. No solid masses. Bilateral renal cysts are noted. -- Nephrology has consulted and saw again today and plans: --restart his IV fluids with D5W and 3 amp of sodium bicarbonate at 80/hr --45 g of Kayexalate orally (but pt refusing because dose last олег caused severe n/v, will give rectally and recheck K later this олег -- Creatinine baseline 1.4-1.5 -- lisinopril held -- serial labs 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 s/p prostatectomy bladder reconstruction, adjuvant chemotherapy, self catheterizes, has Recurrent UTIs Recurrent UTI symptoms --treat penile/scrotal rash - nystatin --UA unremarkalbe --dey placement for intake / output measurements - self caths at home New Elevated transaminitis/hyperbilirubinemia since November 2016 with a history of cholecystectomy, possibly shock liver due to low BP -- Mild hypotension in the ER 101/36, heart rate 84 -- CT abdomen and pelvis (without contrast) November 2016 with unremarkable liver and bile ducts -- abd u/s Dec 15: Liver is normal in size and homogeneous in echotexture. The Liver has a diffusely increased echotexture which typically represents fatty infiltration; however, finding is nonspecific and other etiologies including hepatic cirrhosis can have a similar appearance. Gallbladder is surgically absent. Biliary ducts: Intrahepatic bile ducts are non-dilated. Extrahepatic bile duct caliber measures 4.8 mm. Normal is 6-7 mm or less in diameter, or 10 mm or less post-cholecystectomy. -- hep panel negative -- hold lisinopril/beta tara Diabetes Mellitus - continue home lantus BID, SSI Other Chronic issues known prior to admission, present on admission - Dyslipidemia - statin held due to abnl LFT - DVT/PE hx - COPD - continue tiotropium VTE Mechanical Devices: Intermittant Pneumatic CD Yudelka Perez MD Dec 15, 2016 14:54
--- NOTE | 2016-12-15 16:23 | NUR ---
Panda clogged/Kayexalate pt has Ye-bladder, catheter hadn't drained for several hours, so irrigated with 30cc NS, Panda was clogged with mucous, drained freely after that 1400cc clear yellow urine. Yesterday pt received Kayexalate 30GM but he said he never had a BM, instead he vomited and was nauseated all evening. Dr Perez gave order to give Kayexalate per enema today
[2016-12-16] VITALS (7 sets, daily range): BP systolic 137–161; BP diastolic 76–82; PULSE 94–100; RESP 16–20; O2SAT 82–95
[2016-12-16] MEDS: SODIUM BICARB IV SCH ×2 (00:54→09:14)
[2016-12-16] MEDS: SODIUM CHLORIDE 0.45% IV SCH ×2 (00:54→09:14)
[2016-12-16] MEDS: Dextrose 5% 1,000 ML IV SCH (01:05)
[2016-12-16] MEDS: Heparin 5,000 Unit/mL Inj SUBQ SCH ×3 (01:10→18:20)
--- NOTE | 2016-12-16 06:26 | NUR ---
UOP; 1700cc uop this shift.
[2016-12-16 07:57] LABS: BASOPHILS % (AUTO) 0.1 % (0-3); EOSINOPHILS % (AUTO) 0.7 % (0-5); MONOCYTES % (AUTO) 8.8 % (4-12); Mean Corpuscular Hemoglobin 28.9 pg (27.0-35.0); Mean Corpuscular Volume 86.8 fL (81-100); NEUTROPHILS % (AUTO) 82.8 % (40-74); Platelet Count 311 bil/L (150-400)
[2016-12-16] MEDS: Insulin LISPRO 300 Unit/3 mL Inj SUBQ SCH ×4 (08:00→21:47)
[2016-12-16] MEDS: Insulin GLARgine 100 Unit/mL Syringe SUBQ SCH ×2 (08:51→18:12)
[2016-12-16] MEDS: Tiotropium 18mcg/Cap 5 Capsule Inhaler Kit INHALATION SCH (08:52)
--- NOTE | 2016-12-16 11:11 | NUR ---
Respiratory Pt assessed, found semi fowlers in bed breathing RA. Sat 95%, HR 98, RR 20, BS clear, diminished bilaterally. Pt aware Tx are now PRN, did not want one at this time, feeling much better he said. Pt still has tremors.
[2016-12-16] MEDS ORDERED: Furosemide 10 mg/mL 10 mL Inj IVPUSH ONE (11:50)
[2016-12-16] MEDS: Hydrocortisone 50 mg/mL 2 mL Inj IVPUSH SCH ×2 (11:50→21:34)
--- NOTE | 2016-12-16 12:07 | PCM.PNMED ---
Subjective Date of Service Dec 16, 2016 Subjective no acute issue overnight. intake/ouput: 7419/3050 His kidney function remains poor, serum creatinine today has increased despite IVF replacement. He has no n/v/diarrhea. Exam Vital Signs Vital Sign - Last Date Time Temp Pulse Resp B/P Pulse Ox O2 Delivery O2 Flow Rate FiO2 12/16/16 11:04 99 12/16/16 06:51 36.4 16 142/76 Room Air 12/16/16 01:16 94 2.00 Intake and Output 12/15/16 12/15/16 12/16/16 Cumulative From/Thru 15:00 23:00 07:00 12/13/16 15:43 - 12/16/16 06:51 Intake Total 1588 ml 608 ml 6131 ml Output Total 2800 ml 4950 ml Balance -1212 ml 608 ml 1181 ml Intake Oral 550 ml 1750 ml IV Total 1038 ml 608 ml 4381 ml Output Urine Total 2800 ml 4950 ml # Bowel Movements 0 0 Exam GA: AAOx3, not in acute distress. HEENT: mild pallor, no icteric sclerae, atraumatic, moist mucous membrane. no JVD, no lymphadenopathy. Heart: RRR, normal S1/S2. Lungs: CTA, no wheezing no rhonchi. no accessory muscle use. Abdomen: soft, protuberant, no tenderness/rebound guarding masses or hepatosplenomegaly. Extremities: trace edema. Lab and Diagnostics Result Diagram: 12/16/16 0502 12/16/16 0502 Assessment & Plan 1. RASTA - ATN/AIN due to bactrim. 2. 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 3. Persistent hyperkalemia secondary to RTA-4 4. Stage IIIC Bladder cancer / low grade prostate cancer s/p prostatectomy bladder reconstruction, adjuvant chemotherapy, self catheterizes. 5. Recurrent UTI. 6. Transaminitis/hyperbilirubinemia, ? side effect of bactrim. Plan: Start IV hydrocortisone for both antiinflammatory (AIN) and mineralocorticoid effects (RTA). IV lasix to enhance potassium excretion. D5w+NaHCO3 150 meq 75 ml/hr. add kayexalate 15 gm PO x1. repeat K in pm. VTE Mechanical Devices: Intermittant Pneumatic CD Felisha Rob MD Dec 16, 2016 12:07
[2016-12-16] MEDS: Ondansetron 2 mg/mL 2 mL Inj IVPUSH PRN (12:57)
--- NOTE | 2016-12-16 13:04 | PCM.PNMED ---
Subjective Date of Service Dec 16, 2016 Subjective Urine output was brisk at 1.7 L overnight Patient is eating well, good appetite Exam Vital Signs Vital Sign - Last Date Time Temp Pulse Resp B/P Pulse Ox O2 Delivery O2 Flow Rate FiO2 12/16/16 11:04 99 12/16/16 06:51 36.4 16 142/76 Room Air 12/16/16 01:16 94 2.00 Intake and Output 12/15/16 12/15/16 12/16/16 Cumulative From/Thru 15:00 23:00 07:00 12/13/16 15:43 - 12/16/16 06:51 Intake Total 1588 ml 608 ml 6131 ml Output Total 2800 ml 4950 ml Balance -1212 ml 608 ml 1181 ml Intake Oral 550 ml 1750 ml IV Total 1038 ml 608 ml 4381 ml Output Urine Total 2800 ml 4950 ml # Bowel Movements 0 0 Exam NAD, comfortably laying down on the bed no JVD, MMM, no LAD RRR, nl s1, s2 no mrg CTAB, no w,c S, distended,NT,normoactive BS+ warm, no edema, pulses 2/2 IVs and Medications Medications Reviewed: Medications were reviewed in detail Lab and Diagnostics Result Diagram: 12/16/16 0502 12/16/16 0502 Assessment & Plan #RASTA secondary to ATN/AIN due to bactrim, Cr stable, remaining good UOP, continue i/o, daily wt #Persistent hyperkalemia with RTA type4, POA -appreciate renal input, -continue bicarb drip, trends bicarb, K -Kayexalate 15g po added today #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 s/p prostatectomy bladder reconstruction, adjuvant chemotherapy, self catheterizes, has Recurrent UTIs #Recurrent UTI symptoms --treat penile/scrotal rash - nystatin --UA unremarkalbe --dey placement for intake / output measurements - self caths at home #New Elevated transaminitis/hyperbilirubinemia since November 2016 with a history of cholecystectomy, possibly shock liver due to low BP, trending down -- Mild hypotension in the ER 101/36, heart rate 84 -- CT abdomen and pelvis (without contrast) November 2016 with unremarkable liver and bile ducts -- abd u/s Feb 5: Liver is normal in size and homogeneous in echotexture. The Liver has a diffusely increased echotexture which typically represents fatty infiltration; however, finding is nonspecific and other etiologies including hepatic cirrhosis can have a similar appearance. Gallbladder is surgically absent. Biliary ducts: Intrahepatic bile ducts are non-dilated. Extrahepatic bile duct caliber measures 4.8 mm. Normal is 6-7 mm or less in diameter, or 10 mm or less post-cholecystectomy. -- hep panel negative -- hold lisinopril/beta tara #Diabetes Mellitus - continue home lantus BID, SSI #Other Chronic issues known prior to admission, present on admission - Dyslipidemia - statin held due to abnl LFT - DVT/PE hx - COPD - continue tiotropium dispo:likely 2-3more days given renal function. diet:renal dvt ppx:HSQ Full Code VTE Mechanical Devices: Intermittant Pneumatic CD Time spent 35 minutes Hima Isbell MD Dec 16, 2016 12:56
[2016-12-16] MEDS: Sodium Bicarb 8.4% Inj 150 MEQ in Dextrose 5% 1,000 ML IV SCH (13:05)
[2016-12-16] MEDS ORDERED: Furosemide 10 mg/mL 2 mL Inj ONE (15:30)
--- NOTE | 2016-12-16 16:23 | NUR ---
catheter clogged again with mucous required flushing with small amt of NS, returned over a 1000cc in urine, because pt has Ye-bladder he doesn't have normal sensation of when his bladder is backed up. Will monitor closely
--- NOTE | 2016-12-16 16:24 | NUR ---
Social Work: Initial Assessment Data & Assessment: EMR Reviewed. See initial Assessment. Steam Hammer Operator met with patient during daily rounds to complete initial assessment discuss discharge planning, and SW role reviewed. Patient is a 76 y/o male that admitted for acute renal failure. Patient's re-admit score is high at 4. Patient's NOK/DPOA is Citlalli Whittaker [phone]. SW requested a copy of the patient's DPOA. Patient's PCP is Dr. Garry Grullon. Patient's insurance is Medicare and [employer]. Patient has VA benefits and is 70% covered. Patient does not have LTC benefits and has never had HH or been to a SNF. Patient uses a walker and is independent at baseline and lives at home with his . Patient also has home O2. Patient lives in a single story home with no steps to enter. Patient is currently in surgery and discharge needs are unknown. SW will continue to follow. Plan: Patient is currently in surgery and discharge needs are unknown. SW will continue to follow. Perry Damico LMSW, CHELA Addendum: 12/16/16 at 1633 by PERRY DAMICO SS Amended: Links added.
[2016-12-17] MEDS: Heparin 5,000 Unit/mL Inj SUBQ SCH ×3 (01:34→16:58)
[2016-12-17 01:39] VITALS: BP 134/73; PULSE 66; RESP 16; O2SAT 84
[2016-12-17] MEDS: Sodium Bicarb 8.4% Inj 150 MEQ in Dextrose 5% 1,000 ML IV SCH ×2 (03:25→18:25)
--- NOTE | 2016-12-17 03:55 | NUR ---
activity pt has denied any pain this shift, he denies N/V. he has been receiving sodium bicarb in his IV fluids as well as orally. he also received 2 doses of IV hydrocortisone this shift. dey cath is patent and has been irrigated Q6h per orders. care continues.
[2016-12-17] MEDS: Hydrocortisone 50 mg/mL 2 mL Inj IVPUSH SCH ×3 (04:57→21:54)
[2016-12-17 05:41] LABS: BASOPHILS % (AUTO) 0.1 % (0-3); EOSINOPHILS % (AUTO) 0.3 % (0-5); MONOCYTES % (AUTO) 6.6 % (4-12); Mean Corpuscular Hemoglobin 28.5 pg (27.0-35.0); Mean Corpuscular Volume 85.2 fL (81-100); NEUTROPHILS % (AUTO) 84.1 % (40-74); Platelet Count 291 bil/L (150-400)
[2016-12-17 06:13] LABS: Magnesium 1.6 mg/dL (1.6-2.6); Phosphorus 4.4 mg/dL (2.5-4.9)
[2016-12-17 06:51] VITALS: BP 132/59; PULSE 90; RESP 16; O2SAT 96
[2016-12-17] MEDS: Insulin GLARgine 100 Unit/mL Syringe SUBQ SCH ×2 (09:58→17:00)
[2016-12-17] MEDS: Insulin LISPRO 300 Unit/3 mL Inj SUBQ SCH ×4 (09:59→22:00)
[2016-12-17] MEDS: Tiotropium 18mcg/Cap 5 Capsule Inhaler Kit INHALATION SCH (10:03)
[2016-12-17 10:37] VITALS: PULSE 85
--- NOTE | 2016-12-17 11:19 | PCM.PNMED ---
Subjective Date of Service Dec 17, 2016 Subjective He is feeling better. He has no CP/SOB. K is trending down. Exam Vital Signs Vital Sign - Last Date Time Temp Pulse Resp B/P Pulse Ox O2 Delivery O2 Flow Rate FiO2 12/17/16 10:37 85 12/17/16 06:51 36.8 16 132/59 96 Room Air 12/16/16 01:16 2.00 Intake and Output 12/16/16 12/16/16 12/17/16 Cumulative From/Thru 15:00 23:00 07:00 12/13/16 15:43 - 12/17/16 06:51 Intake Total 1774 ml 1520 ml 9425 ml Output Total 1200 ml 2100 ml 8250 ml Balance 574 ml -580 ml 1175 ml Intake Oral 900 ml 650 ml 3300 ml IV Total 874 ml 870 ml 6125 ml Output Urine Total 1200 ml 2100 ml 8250 ml # Bowel Movements 0 0 Exam GA: AAOx3, not in acute distress. HEENT: mild pallor, no icteric sclerae, atraumatic, moist mucous membrane. no JVD, no lymphadenopathy. Heart: RRR, normal S1/S2. Lungs: CTA, no wheezing no rhonchi. no accessory muscle use. Abdomen: soft, protuberant, no tenderness/rebound guarding masses or hepatosplenomegaly. Extremities: trace edema. : dey cath in place with yellowish urine. Lab and Diagnostics Result Diagram: 12/17/1651212/17/16512 Assessment & Plan 1. RASTA - ATN/AIN due to bactrim. 2. 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 3. Persistent hyperkalemia secondary to RTA-4 - now resolved. 4. Stage IIIC Bladder cancer / low grade prostate cancer s/p prostatectomy bladder reconstruction, adjuvant chemotherapy, self catheterizes. 5. Recurrent UTI. 6. Transaminitis/hyperbilirubinemia, ? side effect of bactrim. Plan: continue IV hydrocortisone for one more day and will switch to prednisone 40 mg daily. d/c D5w+NaHCO3 150 meq 75 ml/hr once the current bag is over. add lasix 40 mg daily. VTE Mechanical Devices: Intermittant Pneumatic CD Felisha Rob MD Dec 17, 2016 11:19
--- NOTE | 2016-12-17 12:00 | PCM.PNMED ---
Subjective Date of Service Dec 17, 2016 Subjective pt remained stable, no overnight event plan from to finish bicarb gtt, start lasix, switch hydrocortisone to prednisone tomorrow Dey cath management requires irrigation every 4-6 hours due to obstruction Exam Vital Signs Vital Sign - Last Date Time Temp Pulse Resp B/P Pulse Ox O2 Delivery O2 Flow Rate FiO2 12/17/16 10:37 85 12/17/16 06:51 36.8 16 132/59 96 Room Air 12/16/16 01:16 2.00 Intake and Output 12/16/16 12/16/16 12/17/16 Cumulative From/Thru 15:00 23:00 07:00 12/13/16 15:43 - 12/17/16 06:51 Intake Total 1774 ml 1520 ml 9425 ml Output Total 1200 ml 2100 ml 8250 ml Balance 574 ml -580 ml 1175 ml Intake Oral 900 ml 650 ml 3300 ml IV Total 874 ml 870 ml 6125 ml Output Urine Total 1200 ml 2100 ml 8250 ml # Bowel Movements 0 0 Exam NAD, comfortably laying down on the bed no JVD, MMM, no LAD RRR, nl s1, s2 no mrg CTAB, no w,c S, distended,NT,normoactive BS+ warm, no edema, pulses 2/2 IVs and Medications Medications Reviewed: Medications were reviewed in detail Lab and Diagnostics Result Diagram: 12/17/1651212/17/16512 Assessment & Plan #RASTA secondary to ATN/AIN due to bactrim, Cr stable, remaining good UOP, continue i/o, daily wt #Persistent hyperkalemia with RTA type4, POA, K normalized -appreciate renal input, -bicarb drip to stop today, trends bicarb, K -s?p Kayexalate 15g pr 12/16 -continue hydrocortisone, switch to prednisone tomorrow #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 s/p prostatectomy bladder reconstruction, adjuvant chemotherapy, self catheterizes, has Recurrent UTIs #Recurrent UTI symptoms --treat penile/scrotal rash - nystatin --UA unremarkalbe --will continue dey placement until d/c, irrigation q4-6h, then transition to self caths upon d/c #New Elevated transaminitis/hyperbilirubinemia since November 2016 with a history of cholecystectomy, possibly shock liver due to low BP, trending down -- Mild hypotension in the ER 101/36, heart rate 84 -- CT abdomen and pelvis (without contrast) November 2016 with unremarkable liver and bile ducts -- abd u/s Dec 15: Liver is normal in size and homogeneous in echotexture. The Liver has a diffusely increased echotexture which typically represents fatty infiltration; however, finding is nonspecific and other etiologies including hepatic cirrhosis can have a similar appearance. Gallbladder is surgically absent. Biliary ducts: Intrahepatic bile ducts are non-dilated. Extrahepatic bile duct caliber measures 4.8 mm. Normal is 6-7 mm or less in diameter, or 10 mm or less post-cholecystectomy. -- hep panel negative -- hold lisinopril/beta tara #Diabetes Mellitus - continue home lantus BID, SSI #Other Chronic issues known prior to admission, present on admission - Dyslipidemia - statin held due to abnl LFT - DVT/PE hx - COPD - continue tiotropium dispo:likely 2-3more days given renal function. diet:renal dvt ppx:HSQ Full Code VTE Mechanical Devices: Intermittant Pneumatic CD Time spent 35 minutes Hima Isbell MD Dec 17, 2016 12:00
[2016-12-17 13:52] VITALS: BP 158/78; PULSE 85; RESP 20
--- NOTE | 2016-12-17 13:58 | NUR ---
Social Work Continued Discharge Planning: SW met with patient at bedside to discuss discharge plan. Patient and states plan as home at discharge. Patient states being independent with needs prior to admit and states conducting own self cath care at home. Patient states having all necessary supplies and states having no HHC related needs at this time. Patient and denied HHC needs at this time. Patient states additional family support and care able to be offered at discharge. No anticipated discharge needs at this time. SW to follow. PLAN: Home with , via POV. Patient and denied HHC at this time. SW to follow pending clinical course. Johanna Hendrickson
--- NOTE | 2016-12-17 14:46 | NUR ---
NUTRITION ASSESSMENT Assess: Pt is a 76 yo male admitted w/ acute renal failure. Pt sent to hospital by PCP for elevated Creatinine levels and Bactrim use greater than 2 weeks. Continued RASTA and metabolic acidosis possibly r/t extended use of Bactrim. Previous hyperkalemia is resolved. Nausea seems to be improved. PMHx: Cholecystectomy, appendectomy, ORIF right fibula, HLD, HTN, DM, Sinus congestion/cataracts, PE/DVT postop anticoagulation therapy since 2013, COPD, Stage III Bladder Cancer, recurrent UTIs, Colonoscopy w/ removal of tubular adenoma transverse colon LABS: CO2 16, BUN 96, Bus Cleaner 3.83, Gluc 204, Total Bilirubin 2.5, AST 67, ALT 155, Alk Phos 430, Alb 3.3 MEDICATIONS: Lasix, Sodium Polystyrene Sulfonate, Lantus, Zofran CURRENT DIET: Renal PO Sips-100% GI symptoms/stool: 0 BM recorded pt w/ flatus SKIN: Daniel 19 ANTHROPOMETRICS: Current Wt: 124.4 kg BMI: 43.6 kg/m2 IBW: 64.9 kg ABW: 79.8 kg Admit Wt: 126.2 kg ESTIMATED NEEDS: COPD, BMI>40, Cancer Calories: 5187-1319 kcal/day (25-35 kcal/kg ABW) Protein: 100-120 g/day (1.2-1.5 g/kg ABW) NUTRITION DIAGNOSIS: 1) Increased nutrient needs related to comorbidities as evidenced by COPD and Stage III Bladder Cancer. 2) Altered nutrition related lab values related to RASTA as evidenced by elevated BUN and Creatinine levels. INTERVENTION: 1) Will add Katy heck on L tray. MONITOR/EVALUATE: PO intake, supps tolerated, labs, GI, POC. Will continue to monitor per moderate nutritional risk guidelines. Addendum: 12/17/16 at [address] I have read and agree with above student documentation. Sonia García, RIOS, CD
[2016-12-17] MEDS: Ondansetron 2 mg/mL 2 mL Inj IVPUSH PRN (16:52)
--- NOTE | 2016-12-17 18:33 | NUR ---
Panda P: Previous problems with catheter obstruction requiring q6hr flushes; dark jared colored urine with mucous threads. I: Continuous IV fluids (bicarb) administered today and increased PO intake. Panda flushed with 25cc NS at 1400. E: No mucous threads seen in Panda bag, draining freely to gravity throughout shift and urine furniture upholsterer apprentice jared color and clear.
[2016-12-17 19:47] VITALS: BP 122/70; PULSE 84; RESP 19; O2SAT 93
[2016-12-18] MEDS: Heparin 5,000 Unit/mL Inj SUBQ SCH ×3 (00:50→17:59)
--- NOTE | 2016-12-18 02:57 | NUR ---
Dey Dey catheter became obstructed with mucous threads and had to be irrigated. Yellow urine noted and is draining to gravity. Will continue to monitor for dey patency.
[2016-12-18] MEDS: Hydrocortisone 50 mg/mL 2 mL Inj IVPUSH SCH ×2 (03:12→15:50)
[2016-12-18 05:38] VITALS: BP 117/67; PULSE 73; RESP 18; O2SAT 94
[2016-12-18 06:25] LABS: BASOPHILS % (AUTO) 0 % (0-3); EOSINOPHILS % (AUTO) 0.1 % (0-5); MONOCYTES % (AUTO) 5.4 % (4-12); Mean Corpuscular Hemoglobin 28.7 pg (27.0-35.0); Mean Corpuscular Volume 84.2 fL (81-100); NEUTROPHILS % (AUTO) 85.1 % (40-74); Platelet Count 313 bil/L (150-400)
[2016-12-18 06:44] LABS: Magnesium 1.6 mg/dL (1.6-2.6); Phosphorus 4.9 mg/dL (2.5-4.9)
[2016-12-18] MEDS: Insulin LISPRO 300 Unit/3 mL Inj SUBQ SCH ×4 (08:00→21:51)
[2016-12-18] MEDS: Insulin GLARgine 100 Unit/mL Syringe SUBQ SCH ×2 (08:15→17:54)
[2016-12-18] MEDS: Tiotropium 18mcg/Cap 5 Capsule Inhaler Kit INHALATION SCH (08:18)
--- NOTE | 2016-12-18 11:27 | PCM.PNMED ---
Subjective Date of Service Dec 18, 2016 Subjective No overnight event Ordered PT Niece was concerned that patient's is afraid of doing q2h self catherization at home, not ready to take him in yet. pt is eating well good appetite, Exam Vital Signs Vital Sign - Last Date Time Temp Pulse Resp B/P Pulse Ox O2 Delivery O2 Flow Rate FiO2 12/18/16 05:38 36.6 73 18 117/67 94 Nasal Cannula 2.00 Intake and Output 12/17/16 12/17/16 12/18/16 Cumulative From/Thru 15:00 23:00 07:00 12/13/16 15:43 - 12/18/16 05:38 Intake Total 2494 ml 720 ml 02578 ml Output Total 2000 ml 1900 ml 07320 ml Balance 494 ml -1180 ml 489 ml Intake Oral 1705 ml 720 ml 5725 ml IV Total 789 ml 6914 ml Output Urine Total 2000 ml 1900 ml 84732 ml # Bowel Movements 0 Exam NAD, comfortably laying down on the bed no JVD, MMM, no LAD RRR, nl s1, s2 no mrg CTAB, no w,c S,ND,NT,normoactive BS+ warm, no edema, pulses 2/2 IVs and Medications Medications Reviewed: Medications were reviewed in detail Lab and Diagnostics Result Diagram: 12/18/1655612/18/1657 Assessment & Plan #RASTA secondary to ATN/AIN due to bactrim, Cr trending down, remaining good UOP, continue i/o, daily wt #Persistent hyperkalemia with RTA type4, POA, K normalized -appreciate renal input, -bicarb drip to stopped 12/17, trends bicarb, K -sp Kayexalate 15g pr 12/16 -s/p hydrocortisone, switch to prednisone today #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 s/p prostatectomy bladder reconstruction, adjuvant chemotherapy, self catheterizes, has Recurrent UTIs #Recurrent UTI symptoms --treat penile/scrotal rash - nystatin --UA unremarkalbe --will continue dey placement until d/c, irrigation q4-6h, then transition to self caths upon d/c #New Elevated transaminitis/hyperbilirubinemia since November 2016 with a history of cholecystectomy, possibly shock liver due to low BP, trending down -- Mild hypotension in the ER 101/36, heart rate 84 -- CT abdomen and pelvis (without contrast) November 2016 with unremarkable liver and bile ducts -- abd u/s Dec 15: Liver is normal in size and homogeneous in echotexture. The Liver has a diffusely increased echotexture which typically represents fatty infiltration; however, finding is nonspecific and other etiologies including hepatic cirrhosis can have a similar appearance. Gallbladder is surgically absent. Biliary ducts: Intrahepatic bile ducts are non-dilated. Extrahepatic bile duct caliber measures 4.8 mm. Normal is 6-7 mm or less in diameter, or 10 mm or less post-cholecystectomy. -- hep panel negative -- hold lisinopril/beta tara #Diabetes Mellitus - continue home lantus BID, SSI #Other Chronic issues known prior to admission, present on admission - Dyslipidemia - statin held due to abnl LFT - DVT/PE hx - COPD - continue tiotropium dispo:likely 1-2days, needs PT eval diet:renal dvt ppx:HSQ Full Code VTE Mechanical Devices: Intermittant Pneumatic CD Time spent 35 minutes Hima Isbell MD Dec 18, 2016 11:27
--- NOTE | 2016-12-18 11:28 | PCM.PNMED ---
Subjective Date of Service Dec 18, 2016 Subjective no acute issue overnight. no new complaints. Exam Vital Signs Vital Sign - Last Date Time Temp Pulse Resp B/P Pulse Ox O2 Delivery O2 Flow Rate FiO2 12/18/16 05:38 36.6 73 18 117/67 94 Nasal Cannula 2.00 Intake and Output 12/17/16 12/17/16 12/18/16 Cumulative From/Thru 15:00 23:00 07:00 12/13/16 15:43 - 12/18/16 05:38 Intake Total 2494 ml 720 ml 64566 ml Output Total 2000 ml 1900 ml 91639 ml Balance 494 ml -1180 ml 489 ml Intake Oral 1705 ml 720 ml 5725 ml IV Total 789 ml 6914 ml Output Urine Total 2000 ml 1900 ml 19135 ml # Bowel Movements 0 Exam GA: AAOx3, not in acute distress. HEENT: mild pallor, no icteric sclerae, atraumatic, moist mucous membrane. no JVD, no lymphadenopathy. Heart: RRR, normal S1/S2. Lungs: CTA, no wheezing no rhonchi. no accessory muscle use. Abdomen: soft, protuberant, no tenderness/rebound guarding masses or hepatosplenomegaly. Extremities: trace edema. : dey cath in place with yellowish urine. Lab and Diagnostics Result Diagram: 12/18/1657 12/18/1657 Assessment & Plan 1. RASTA - ATN/AIN due to bactrim. - improving. 2. 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 - improving. 3. Persistent hyperkalemia secondary to RTA-4 - now resolved. 4. Stage IIIC Bladder cancer / low grade prostate cancer s/p prostatectomy bladder reconstruction, adjuvant chemotherapy, self catheterizes. 5. Recurrent UTI. 6. Transaminitis/hyperbilirubinemia, ? side effect of bactrim. Plan: decrease IV hydrocortisone 50 mg Q 12hr x 1 day then d/c prednisone 40 mg daily in am. d/c plan within 24hr. VTE Mechanical Devices: Intermittant Pneumatic CD Felisha Rob MD Dec 18, 2016 11:28
--- NOTE | 2016-12-18 11:36 | NUR ---
Evaluation completed. Please go to "Notes" then click on "Assessments and Notes" (bottom left corner of screen). Then select appropriate discipline tab on top of screen.
[2016-12-18 14:18] VITALS: BP 105/65; PULSE 98; RESP 17; O2SAT 94
[2016-12-18] MEDS ORDERED: Hydrocortisone 50 mg/mL 2 mL Inj IVPUSH SCH (15:50)
--- NOTE | 2016-12-18 15:52 | NUR ---
SEYMOUR completed with patient and signed
--- NOTE | 2016-12-18 16:10 | NUR ---
IV Site Attempted to flush IV site, leaking and painful. Removed IV Called Composite Assembler to verify dose of hydrocortisone. Ok to stop she will start prednisone tomorrow. No new IV started per conversation. Bed down and in locked position, call light w/in reach.
[2016-12-18 19:47] VITALS: BP 132/72; PULSE 90; RESP 18; O2SAT 94
[2016-12-19] MEDS: Heparin 5,000 Unit/mL Inj SUBQ SCH ×2 (01:21→08:48)
[2016-12-19] MEDS: Hydrocortisone 50 mg/mL 2 mL Inj IVPUSH SCH (03:45)
[2016-12-19 04:40] VITALS: BP 118/70; PULSE 85; RESP 20; O2SAT 96
[2016-12-19 05:25] LABS: BASOPHILS % (AUTO) 0.3 % (0-3); EOSINOPHILS % (AUTO) 1.7 % (0-5); MONOCYTES % (AUTO) 11.2 % (4-12); Mean Corpuscular Hemoglobin 28.5 pg (27.0-35.0); Mean Corpuscular Volume 85.6 fL (81-100); NEUTROPHILS % (AUTO) 71.9 % (40-74); Platelet Count 304 bil/L (150-400)
--- NOTE | 2016-12-19 05:33 | NUR ---
Dey irrigation Dey irrigated per written instruction, mucus threads present and dey is patent and draining pale yellow urine. Pt reports no pain, chest pain, or SOB this shift. No IV access, no solumedrol given per previous report. RX cream applied to scrotum for redness. Care continues
[2016-12-19 05:43] LABS: Magnesium 1.6 mg/dL (1.6-2.6); Phosphorus 5.8 mg/dL (2.5-4.9)
[2016-12-19] MEDS: Insulin LISPRO 300 Unit/3 mL Inj SUBQ SCH ×2 (08:00→12:00)
[2016-12-19] MEDS: Insulin GLARgine 100 Unit/mL Syringe SUBQ SCH (08:00)
[2016-12-19] MEDS ORDERED: predniSONE 20 mg Tablet PO SCH (08:30)
[2016-12-19] MEDS: Tiotropium 18mcg/Cap 5 Capsule Inhaler Kit INHALATION SCH (10:04)
[2016-12-19] MEDS ORDERED: PRED-508 PO (10:36)
[2016-12-19] MEDS ORDERED: SODI325T PO (10:36)
--- NOTE | 2016-12-19 10:42 | PCM.DIMED ---
Discharge Instructions Date of Service Dec 19, 2016 Dates of Hospitalization Dec 13, 2016 at 18:40 Discharge Diagnosis Discharge Diagnosis RASTA secondary to ATN/AIN due to bactrim. 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 Recurrent UTI. Transaminitis/hyperbilirubinemia Medication Instructions Please continue to take Prednisone 40mg daily for 2weeks, dosage will be adjusted in the renal clinic later. Please take Sodium bicarb tab three times per day for your kidney Diet Low fat, Low Sodium, Renal Diet Activity No restrictions Patient Instructions You were hospitalized with kidney injury, now it's improving, Please follow medicine instruction as above Please note that you had urine catheter in place during hospitalization, please continue self-catheterization at home with sterile technique Follow-up plan Please follow up with kidney doctor in 2weeks Please follow up with your primary doctor in 2weeks Please follow up with your Urologist as scheduled Follow-up Provider: Felisha Rob MD Follow-up with PCP in: 2 weeks Provider: Garry Grullon MD Follow-up in: 2 weeks Hima Isbell MD Dec 19, 2016 10:42
--- NOTE | 2016-12-19 11:24 | NUR ---
Social Work Discharge: SW met with patient at bedside to discuss discharge plan. Patient states plan as home with who to assist with care and needs and who to provide transport home upon discharge. Patient self cath at home and will continue upon discharge. Patient denied any HHC need at this time. SW will continue to follow. PLAN: Home with , via POV, pending clinical course. Johanna VIERA
--- NOTE | 2016-12-19 12:18 | PCM.PNMED ---
Subjective Date of Service Dec 19, 2016 Subjective doing well, wants to go home. no fever/chills/CP/SOB. Exam Vital Signs Vital Sign - Last Date Time Temp Pulse Resp B/P Pulse Ox O2 Delivery O2 Flow Rate FiO2 12/19/16 04:40 36.6 85 20 118/70 96 Nasal Cannula 2.00 Intake and Output 12/18/16 12/18/16 12/19/16 Cumulative From/Thru 15:00 23:00 07:00 12/13/16 15:43 - 12/19/16 05:17 Intake Total 808 ml 350 ml 30513 ml Output Total 1550 ml 1450 ml 42043 ml Balance -742 ml -1100 ml -1353 ml Intake Oral 808 ml 350 ml 6883 ml IV Total 6914 ml Output Urine Total 1550 ml 1450 ml 64956 ml # Bowel Movements 0 0 0 Exam GA: AAOx3, not in acute distress. HEENT: mild pallor, no icteric sclerae, atraumatic, moist mucous membrane. no JVD, no lymphadenopathy. Heart: RRR, normal S1/S2. Lungs: CTA, no wheezing no rhonchi. no accessory muscle use. Abdomen: soft, protuberant, no tenderness/rebound guarding masses or hepatosplenomegaly. Extremities: no edema. : dey cath in place with yellowish urine. Lab and Diagnostics Result Diagram: 12/19/1644412/19/16444 Assessment & Plan 1. RASTA - ATN/AIN due to bactrim. - high BUN/cr ratio due to steroid. 2. RTA-4. 3. Stage IIIC Bladder cancer / low grade prostate cancer s/p prostatectomy bladder reconstruction, adjuvant chemotherapy, self catheterizes. 4. Recurrent UTI. 5. Transaminitis/hyperbilirubinemia, ? side effect of bactrim. Plan: prednisone 40 mg daily. f/u with renal in 5 days, FridayDec 24. VTE Mechanical Devices: Intermittant Pneumatic CD Felisha Rob MD Dec 19, 2016 12:17
--- NOTE | 2016-12-19 15:06 | NUR ---
Discharge Orders for discharge were received. The patient was made aware of the plan to discharge and was agreeable to go. Patient given his scripts and information on new medications, diagnosis and treatment, signs and symptoms to be aware of, follow up instructions and information on catheter care. The patient signified understanding of this information and his dey catheter was removed per provider orders. Patient reminded to use sterile technique when self catheterizing at home. Patient belongings were then gathered and he ambulated into a wheelchair which took him to the main entrance. At the time of discharge the patient was alert and oriented, with no complaints of nausea, chest pain, shortness of breath or other difficulties.
--- NOTE | 2016-12-20 15:26 | PCM.DC.MED ---
Discharge Summary Date of Service Dec 19, 2016 Dates of Hospitalization Date of Hospital Admission Dec 13, 2016 at 18:40 Date of Discharge: Dec 19, 2016 Providers: Admitting Physician: Rhea Anderson MD Primary Care Physician: Garry Grullon MD Attending Physician: Rhea Anderson MD Diagnosis at Time of Discharge Diagnosis at Time of Discharge RASTA secondary to ATN/AIN due to bactrim. 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 Recurrent UTI. Transaminitis/hyperbilirubinemia Consultations Nephrology Procedures Other Diagnostics PROCEDURE: US ABDOMEN ([id number]) INDICATIONS: elevated lfts TECHNIQUE: Real-time scanning was performed of the abdominal and retroperitoneal organs, with image documentation. COMPARISON: None. FINDINGS: Liver: Liver is normal in size and homogeneous in echotexture. The Liver has a diffusely increased echotexture which typically represents fatty infiltration; however, finding is nonspecific and other etiologies including hepatic cirrhosis can have a similar appearance. Please correlate with clinical and laboratory findings. Gallbladder: Gallbladder is surgically absent Biliary ducts: Intrahepatic bile ducts are non-dilated. Extrahepatic bile duct caliber measures 4.8 mm. Normal is 6-7 mm or less in diameter, or 10 mm or less post-cholecystectomy. Pancreas: Visualized portions of the pancreas are sonographically normal. Spleen: Spleen is normal in size and homogeneous in echotexture. Kidneys: Kidneys are normal in size and echotexture. Right kidney measures 12.6 cm long; left kidney measures 13.5 cm long. No hydronephrosis or nephrolithiasis. No solid masses. Bilateral renal cysts are noted. Aorta: Secured by bowel gas and cannot be evaluated. Iliacs: Secured by bowel gas and cannot be evaluated. IVC: Intrahepatic inferior vena cava is patent. Miscellaneous: No free abdominal fluid. Dey catheter noted in the bladder. IMPRESSION: 1. Echogenic liver. Finding typically represents fatty infiltration; however, finding is nonspecific and correlation with clinical and laboratory findings is recommended to exclude other etiologies including hepatic cirrhosis. 2. Status post cholecystectomy. 3. Nonvisualization of the abdominal aorta and the iliac vasculature secondary to bowel gas. 4. Renal cysts. Dictated by: Claudette Morgan MD, PhD on 12/14/2016 at 12:37 Approved by: Claudette Morgan MD, PhD on 12/14/2016 at 12:38 Brief History History of physical obtained by on 12/13 Thomas Whittaker has had 3 days of weakness and fatigue and itch sent by primary care with new elevated creatinine of 4, recent Bactrim use x 2weeks for recurrent/prolonged UTI with history of bladder cancer and bladder reconstruction history. Concurrent diarrhea with the Bactrim, prior to that bronchitis treated with azithromycin x 1 week then w/ amoxicilin for another week end of oct 2016. On 12/10/2016, rising LFTs and creatinines noted by oncologist who deemed due to antibiotic use. yellow stool. ongoing urinary odor/ discoloration w/ minimal bactrim benefit. ongoing jock itch/rash penile/ scrotal. self caths. associated low bp throughout several days SBP 90s. no new medications/ no new herbs. never cardiac issues. Hospital Course #RASTA secondary to ATN/AIN due to bactrim, UOP improved as renal function improves, urine output also improved #AG/non-AG metabolic acidosis, Persistent hyperkalemia with RTA type4, POA,pt required bicarb gtt, multiple Kayexalate, pt also was started on steroid with hydrocortisone, switched to prednisone upon d/c. All of electrolytes remained stable, acidosis resolving. plan is to follow up in renal clinic, which scheduled 12/24 in 5days per #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 s/p prostatectomy bladder reconstruction, adjuvant chemotherapy, self catheterizes, has Recurrent UTIs, repeat UA was unremarkable, patient maintained Dey catheter give neobladder require self-cath, dey d/dorota upon d/c, plan is to continue self-cath q2-4hr with sterile technique at home #mild transaminitis/hyperbilirubinemia likely due to NAFLD abd US 12/15 showed diffusely increased echotexture which typically represents fatty infiltration; LFT plateaued, bilirubrin trended down, pt remained asymptomatic, no further w/ u pursued. #Diabetes Mellitus, continued home lantus BID, SSI #Dyslipidemia - statin held due to abnl LFT Exam Vital Signs (Last) Date Time Temp Pulse Resp B/P Pulse Ox O2 Delivery O2 Flow Rate FiO2 12/19/16 04:40 36.6 85 20 118/70 96 Nasal Cannula 2.00 Exam NAD, comfortably laying down on the bed no JVD, MMM, no LAD RRR, nl s1, s2 no mrg CTAB, no w,c S,ND,NT,normoactive BS+ warm, no edema, pulses 2/2 Test 12/13/16 16:09 12/13/16 16:49 12/13/16 16:55 12/14/16 11:00 Prothrombin Time 12.4sec (8.1-12.5) Prothromb Time International Ratio 1.16ratio Uric Acid 7.4mg/dL (2.6-7.2) Hold Hyman Top Tube Received (Received) Urine Color Yellow (YELLOW) Urine Appearance Clear (CLEAR,HAZY) Urine pH 7.0 (5.0-8.0) Urine Specific [place] 1.005 (1.003-1.035) Urine Protein 30mg/dL (NEG,TRACE) Urine Glucose (UA) 100mg/dL (NEGATIVE) Urine Ketones Negativemg/dL (NEGATIVE) Urine Occult Blood Small (NEGATIVE) Urine Nitrite Negative (NEGATIVE) Urine Bilirubin Negative (NEGATIVE) Urine Urobilinogen 1.0mg/dL (NORMAL) Urine Leukocyte Esterase Trace (NEGATIVE) Urine RBC 0-2/hpf (0-2) Urine WBC 0-5/hpf (0-5) Urine Epithelial Cells None/hpf (NONE-MOD) Urine Crystals None seen (NONE SEEN) Urine Bacteria Few/hpf (NONE-FEW) Urine Hyaline Casts None/lpf (NONE) Urine Granular Casts None seen (NONE SEEN) Urine Waxy Casts None seen (NONE SEEN) Urine Red Blood Cell Casts None seen (NONE SEEN) Urine White Blood Cell Casts None seen (NONE SEEN) Urine Mucus None seen (None Seen) Urine Trichomonas None seen (NONE SEEN) Urine Yeast None (NONE SEEN) Urinalysis Comment None Urine Culture Reflexed Indicated Urine Random Creatinine 154mg/dL (22-328) Urine Random Sodium 114mEq/L Urine Random Potassium 12.6mEq/L Hepatitis A IgM Antibody Negative (Negative) Hepatitis B Surface Antigen Negative (Negative) Hepatitis B Core IgM Antibody Negative (Negative) Hepatitis C Antibody <0.1s/co ratio (0.0-0.9) Hepatitis C Comment Comment (.) Acetaminophen Level 15.0ug/mL Rx (10-25) Test 12/16/16 05:02 12/17/16 05:13 12/19/16 04:45 Erythrocyte Sedimentation Rate 64mm/hr (0-30) Anti-Nuclear Antibody Screen Negative (Negative) Complement C3 184mg/dL (82-167) Complement C4 39mg/dL (14-44) Hemoglobin A1c 7.3% (4.8-5.6) White Blood Count 9.2th/mm3 (3.8-10.1) Red Blood Count 3.61mil/mm3 (4.40-5.80) Hemoglobin 10.3g/dL (13.8-17.2) Hematocrit 30.9% (41.0-50.0) Mean Corpuscular Volume 85.6fL (81-100) Mean Corpuscular Hemoglobin 28.5pg (27.0-35.0) Mean Corpuscular Hemoglobin Concent 33.3% (32.0-37.0) Red Cell Distribution Width 15.7% (12.3-15.4) Platelet Count 304bil/L (150-400) Neutrophils (%) (Auto) 71.9% (40-74) Lymphocytes (%) (Auto) 14.1% (14-46) Monocytes (%) (Auto) 11.2% (4-12) Eosinophils (%) (Auto) 1.7% (0-5) Basophils (%) (Auto) 0.3% (0-3) Sodium Level 136mEq/L (134-144) Potassium Level 3.7mEq/L (3.5-5.2) Chloride Level 99mEq/L (97-108) Carbon Dioxide Level 19mmol/L (18-29) Blood Urea Nitrogen 102mg/dL (8-27) Creatinine 3.86mg/dL (0.76-1.27) Estimat Glomerular Filtration Rate 16mL/min (>59) Glucose Level 113mg/dL (60-99) Calcium Level 8.1mg/dL (8.5-10.1) Phosphorus Level 5.8mg/dL (2.5-4.9) Magnesium Level 1.6mg/dL (1.6-2.6) Total Bilirubin 1.4mg/dL (0.0-1.2) Aspartate Amino Transf (AST/SGOT) 111U/L (0-50) Alanine Aminotransferase (ALT/SGPT) 253U/L (0-44) Alkaline Phosphatase 357U/L (25-160) Total Protein 5.5g/dL (6.4-8.4) Albumin 3.3g/dL (3.4-5.0) Discharge Medications Discharge Medications Albuterol HFA (Proair HFA) 8.5 Gm Hfa.aer.ad 2 PUFFS INHALATION Q4H (Reported) Clotrimazole 1% (Clotrimazole 1%) 30 Ml Solution 30 ML TP BID (Reported) Cranberry Conc/C/Bacill Coag (Cranberry Tablet) 1 Each Tablet 2 EACH PO DAILY ( Reported) Glipizide (Glipizide) 10 Mg Tablet 10 MG PO BID (Reported) Glipizide (Glipizide) 10 Mg Tablet 10 MG PO BID (Reported) Gluc/Dontae-MSM#2/C/D3/Marcos/Born (Ecvufbzisq-Wqgxdzlnhsd-QDQ Tab) 1 Each Tablet 1 EACH PO DAILY (Reported) Insulin Glargine (Lantus U100 Insulin Vial) 100 Unit/Ml Vial 40 UNIT SUBQ QAM ( Reported) Insulin Glargine (Lantus U100 Insulin Vial) 100 Unit/Ml Vial 32 UNIT SUBQ QPM ( Reported) Insulin Glargine (Lantus U100 Insulin Vial) 100 Unit/Ml Vial 1 UNIT SUBQ DAILYWL (Reported) Insulin Glargine (Lantus U100 Insulin Vial) 100 Unit/Ml Vial 1 UNIT SUBQ HS ( Reported) Lovastatin (Lovastatin) 40 Mg Tablet 40 MG PO HS (Reported) Metoprolol Tartrate (Metoprolol Tartrate) 25 Mg Tablet 25 MG PO BID (Reported) Multivits-Min/FA/Lycopene/Lut (Centrum Silver Tablet) 1 Each Tablet 1 EACH PO DAILY (Reported) Prednisone (Deltasone) 20 Mg Tablet 40 MG PO DAILY Prescribed by: HIMA LUNA MD Rivaroxaban (Xarelto) 15 Mg Tablet 15 MG PO QPM (Reported) Rivaroxaban (Xarelto) 15 Mg Tablet 15 MG PO DAILYWD (Reported) Sodium Bicarbonate (Sodium Bicarbonate) 325 Mg Tablet 650 MG PO TID Prescribed by: HIMA LUNA MD Tiotropium [place] (Spiriva) 18 Mcg Cap.w.dev 1 CAP IH DAILY (Reported) Tiotropium [place] (Spiriva) 18 Mcg Cap.w.dev 18 MCG IH MORNING (Reported) As needed Acetaminophen (Acetaminophen) 325 Mg Tablet 325 MG PO Q4H PRN PRN For Fever ( Reported) Acetaminophen (Acetaminophen) 325 Mg Capsule 325 MG PO PRN For Pain (Reported) Albuterol HFA (Proair HFA) 8.5 Gm Hfa.aer.ad 2 PUFFS INHALATION Q4H PRN PRN For Shortness of Breath (Reported) Clotrimazole (Itch Relief) 1 % Cream..g. 15 GM TP PRN For Itching (Reported) Additional med instructions Please continue to take Prednisone 40mg daily for 2weeks, dosage will be adjusted in the renal clinic later. Please take Sodium bicarb tab three times per day for your kidney Followup Plan Disposition: Home Follow-up plan Please follow up with kidney doctor in 2weeks Please follow up with your primary doctor in 2weeks Please follow up with your Urologist as scheduled Discharge Diet: Low fat, Low Sodium, Renal Diet Discharge Activity: No restrictions Patient Instructions You were hospitalized with kidney injury, now it's improving, Please follow medicine instruction as above Please note that you had urine catheter in place during hospitalization, please continue self-catheterization at home with sterile technique Follow-up Provider: Felisha Rob MD Follow-up with PCP in: 2 weeks Provider: Garry Grullon MD Follow-up in: 2 weeks Time spent 65 minutes Hima Luna MD Dec 20, 2016 15:26
== END 2016-12-19 14:15 | disposition home or self-care (01) | DRG 683 ==
LOC: SED 15:35 → OBSVTOIN 18:40 → OSC 18:40
PROVIDERS: ADMIT Urology; ATTEND Urology
DX: N17.0 Acute kidney failure with tubular necrosis (principal); E87.1 Hypo-osmolality and hyponatremia; E87.2 Acidosis; R17 Unspecified jaundice; N39.0 Urinary tract infection, site not specified; Z79.4 Long term (current) use of insulin; Z85.46 Personal history of malignant neoplasm of prostate; Z87.891 Personal history of nicotine dependence; Z79.01 Long term (current) use of anticoagulants; J44.9 Chronic obstructive pulmonary disease, unspecified; T37.0X5A Adverse effect of sulfonamides, initial encounter; Y92.9 Unspecified place or not applicable; Z92.21 Personal history of antineoplastic chemotherapy; E11.9 Type 2 diabetes mellitus without complications; E86.0 Dehydration; N18.9 Chronic kidney disease, unspecified; E87.5 Hyperkalemia; C67.9 Malignant neoplasm of bladder, unspecified; R74.0 Nonspecific elevation of levels of transaminase and lactic acid dehydrogenase [LDH]

== ENCOUNTER 2016-12-23 10:46 | Inpatient (IN) | payer MEDICARE, OTHER ==
[2016-12-23] VITALS (8 sets, daily range): BP systolic 98–152; BP diastolic 53–75; PULSE 84–110; RESP 18–28; O2SAT 95–100
[~2016-12-23] VITALS: Ht 167.6 cm; Wt 121.5 kg
[~2016-12-23 10:46] MED LIST changes: +ACET325C PO; +ALBU8.5H2 INHALATION; -ALBU8.5H4 IH; +CLOT15CR66 TP; -LISI-571 PO; +PRED-508 PO; +RIVA15TA PO; -RIVA20TA PO; +SODI325T PO
[2016-12-23 11:13] LABS: Mean Corpuscular Hemoglobin 28.8 pg (27.0-35.0); Mean Corpuscular Volume 88.2 fL (81-100); Platelet Count 321 bil/L (150-400)
[2016-12-23] MEDS ORDERED: 0.9% Sodium Chloride 1,000 ML IV ONE (11:25)
[2016-12-23 11:27] LABS: INR 1.14 ratio
--- NOTE | 2016-12-23 11:31 | ED.REPORT ---
HPI-Dizziness / Weakness Date of Service Dec 23, 2016 ED Provider: Adal Jean PA-C It is a 76-year-old male with a history of COPD, kidney and liver failure who presents to emergency department for weakness. Recent states he was discharged from this hospital approximately 4 days ago after being treated for acute liver and renal failure. He presents to the emergency department complaining of 2 days of progressive weakness which is progressed to a degree where he can no longer get out of bed. He also complains of "kidney pain" has been present since prior to his discharge 4 days ago. He has a 6 day history of a cough productive of clear sputum. Patient typically self catheterizes, but has been unable to for the last 2 days. He is producing urine in a brief. Has a history of bladder cancer 6 years ago as well as prostate cancer, he has an IVC filter in place and takes Xarelto. He is a type II diabetic, and complains of recent high blood glucose readings up to 460 at night mid 200s during the day. He believes this is secondary to his current regimen of 40 mg per day of prednisone. Denies fever/chills, abdominal pain, vomiting, diarrhea, melena, hematochezia, nasal congestion, rhinorrhea, eye/ear pain, Nursing Notes Stated Complaint: WEAKNESS Chief Complaint: General Complaint Nursing Notes Reviewed: Yes Allergies: Coded Allergies: indomethacin (Verified Allergy, Unknown, UNKNOWN, 12/13/16) niacin (Verified Allergy, Unknown, UNKNOWN, 12/13/16) simvastatin (Verified Allergy, Unknown, UNKNOWN, 12/13/16) sulfamethoxazole (Verified Adverse Reaction, Unknown, ATN, 12/23/16) trimethoprim (Verified Adverse Reaction, Unknown, ATN, 12/23/16) Uncoded Allergies: BUPROPIRON (Allergy, Unknown, HYPERGLYCEMIA, 12/13/16) Scheduled Albuterol HFA (Proair HFA) 8.5 Gm Hfa.aer.ad 2 PUFFS INHALATION Q4H Clotrimazole 1% (Clotrimazole 1%) 30 Ml Solution 30 ML TP BID Cranberry Conc/C/Bacill Coag (Cranberry Tablet) 1 Each Tablet 2 EACH PO DAILY Glipizide (Glipizide) 10 Mg Tablet 10 MG PO BID Glipizide (Glipizide) 10 Mg Tablet 10 MG PO BID Gluc/Dontae-MSM#2/C/D3/Marcos/Born (Ijgduzbwma-Hkstzlgbtfg-VAY Tab) 1 Each Tablet 1 EACH PO DAILY Insulin Glargine (Lantus U100 Insulin Vial) 100 Unit/Ml Vial 40 UNIT SUBQ QAM Insulin Glargine (Lantus U100 Insulin Vial) 100 Unit/Ml Vial 32 UNIT SUBQ QPM Insulin Glargine (Lantus U100 Insulin Vial) 100 Unit/Ml Vial 1 UNIT SUBQ DAILYWL Insulin Glargine (Lantus U100 Insulin Vial) 100 Unit/Ml Vial 1 UNIT SUBQ HS Lovastatin (Lovastatin) 40 Mg Tablet 40 MG PO HS Metoprolol Tartrate (Metoprolol Tartrate) 25 Mg Tablet 25 MG PO BID Multivits-Min/FA/Lycopene/Lut (Centrum Silver Tablet) 1 Each Tablet 1 EACH PO DAILY Prednisone (Deltasone) 20 Mg Tablet 40 MG PO DAILY Rivaroxaban (Xarelto) 15 Mg Tablet 15 MG PO QPM Rivaroxaban (Xarelto) 15 Mg Tablet 15 MG PO DAILYWD Sodium Bicarbonate (Sodium Bicarbonate) 325 Mg Tablet 650 MG PO TID Tiotropium [place] (Spiriva) 18 Mcg Cap.w.dev 1 CAP IH DAILY Tiotropium [place] (Spiriva) 18 Mcg Cap.w.dev 18 MCG IH MORNING Scheduled PRN Acetaminophen (Acetaminophen) 325 Mg Tablet 325 MG PO Q4H PRN PRN For Fever Acetaminophen (Acetaminophen) 325 Mg Capsule 325 MG PO PRN For Pain Albuterol HFA (Proair HFA) 8.5 Gm Hfa.aer.ad 2 PUFFS INHALATION Q4H PRN PRN For Shortness of Breath Clotrimazole (Itch Relief) 1 % Cream..g. 15 GM TP PRN For Itching General Time Seen by MD: 11:09 Chief Complaint Generalized weakness Past Medical History Past Medical History bladder and prostate cancer DVT Reports: Hyperlipidemia Past Surgical History baldder reconstruction prostate surgery Reports: Appendectomy, Cholecystectomy Smoking History Former Smoker Social History Other Social History: Good social support Ambulatory Status Independent Review of Systems General: Admits weakness, Denies fever, chills, malaise. HEENT: Denies congestion, headache, sore throat. Respiratory: Admits cough. Denies cough, shortness of breath, wheezing. Cardiovascular: Denies chest pain, palpitations. Gastrointestinal: Denies vomiting, diarrhea, abdominal pain. Genitourinary: Denies frequency, urgency, dysuria, hematuria. Otherwise as noted in HPI. Physical Exam General: Ill appearing, well developed, obese, mild distress. Head: Atraumatic, normocephalic. Eyes: No scleral icterus or injection. No discharge. Vision grossly intact. ENT: Mucous membranes tacky. Voice clear, hearing grossly intact. Respiratory: Regular rate and rhythm. Breath sounds present, clear to auscultation and equal bilaterally. Cardiovascular: Cells are quite faint, Regular rate and rhythm. murmur, gallop or rub not appreciated. 1+ pedal edema. PT and DP pulses are not appreciated Gastrointestinal: Abdomen distended and mildly tender, primarily in the right upper quadrant without guarding or rebound. Bowel sounds normoactive. Skin: Mildly jaundiced, Warm and dry. Neurological: Grossly nonfocal. Psychological: Alert and oriented. Speech appropriate, linear and logical. Behavior appropriate. Initial Vital Signs Vital Signs (First) Date Time Temp Pulse Resp B/P Pulse Ox O2 Delivery O2 Flow Rate FiO2 12/23/16 11:04 36.4 110 20 132/53 97 Room Air 12/23/16 13:39 3 Initial VS: Reviewed (tachycardia), Vital signs abnormal Interpretation & Diagnostics Interpretation & Diagnostics: Urinalysis shows Small blood, trace leukocyte esterase, few bacteria Lab Results Interpretation Result Diagram: 12/23/16 1100 12/23/16 1100 Test 12/23/16 11:00 12/23/16 12:16 White Blood Count 18.9th/mm3 (3.8-10.1) Red Blood Count 3.13mil/mm3 (4.40-5.80) Hemoglobin 9.0g/dL (13.8-17.2) Hematocrit 27.6% (41.0-50.0) Mean Corpuscular Volume 88.2fL (81-100) Mean Corpuscular Hemoglobin 28.8pg (27.0-35.0) Mean Corpuscular Hemoglobin Concent 32.6% (32.0-37.0) Red Cell Distribution Width 15.1% (12.3-15.4) Platelet Count 321bil/L (150-400) Neutrophils (%) (Auto) 82% (40-74) Lymphocytes (%) (Auto) 8% (14-46) Monocytes (%) (Auto) 8% (4-12) Eosinophils (%) (Auto) 0% (0-5) Basophils (%) (Auto) 0% (0-3) Myelocytes % 2% (0-0) Prothrombin Time 12.2sec (8.1-12.5) Prothromb Time International Ratio 1.14ratio Activated Partial Thromboplast Time 28.5sec (22.8-33.0) Sodium Level 132mEq/L (134-144) Potassium Level 5.7mEq/L (3.5-5.2) Chloride Level 98mEq/L (97-108) Carbon Dioxide Level 14mmol/L (18-29) Blood Urea Nitrogen 171mg/dL (8-27) Creatinine 4.04mg/dL (0.76-1.27) Estimat Glomerular Filtration Rate 15mL/min (>59) Glucose Level 299mg/dL (60-99) Calcium Level 8.6mg/dL (8.5-10.1) Magnesium Level 1.9mg/dL (1.6-2.6) Total Bilirubin 0.9mg/dL (0.0-1.2) Aspartate Amino Transf (AST/SGOT) 28U/L (0-50) Alanine Aminotransferase (ALT/SGPT) 167U/L (0-44) Alkaline Phosphatase 217U/L (25-160) Troponin T < 0.010ug/L (0.0-0.011) Total Protein 5.8g/dL (6.4-8.4) Albumin 3.4g/dL (3.4-5.0) Procalcitonin 0.38ng/mL (0.00-0.08) Urine Color Straw (YELLOW) Urine Appearance Hazy (CLEAR,HAZY) Urine pH 7.0 (5.0-8.0) Urine Specific [place] 1.010 (1.003-1.035) Urine Protein Negativemg/dL (NEG,TRACE) Urine Glucose (UA) Negativemg/dL (NEGATIVE) Urine Ketones Negativemg/dL (NEGATIVE) Urine Occult Blood Small (NEGATIVE) Urine Nitrite Negative (NEGATIVE) Urine Bilirubin Negative (NEGATIVE) Urine Urobilinogen Normalmg/dL (NORMAL) Urine Leukocyte Esterase Trace (NEGATIVE) Urine RBC 3-10/hpf (0-2) Urine WBC 6-10/hpf (0-5) Urine Epithelial Cells Occasional/hpf (NONE-MOD) Urine Crystals None seen (NONE SEEN) Urine Bacteria Few/hpf (NONE-FEW) Urine Hyaline Casts None/lpf (NONE) Urine Granular Casts None seen (NONE SEEN) Urine Waxy Casts None seen (NONE SEEN) Urine Red Blood Cell Casts None seen (NONE SEEN) Urine White Blood Cell Casts None seen (NONE SEEN) Urine Mucus None seen (None Seen) Urine Trichomonas None seen (NONE SEEN) Urine Yeast None (NONE SEEN) Urinalysis Comment None Urine Culture Reflexed Indicated X-Ray Chest Interpretation Chest Xray Interpretation: PROCEDURE: X-RAY CHEST ONE VIEW, PORTABLE ([id number]) INDICATIONS: weakness IMPRESSION: 1. Findings compatible with COPD redemonstrated without acute consolidation. Re-Eval/Medical Decision Med Decision/Clinical Course WBC 18.9, left shift, microcytic anemia, mild hyponatremia, hyperkalemia BUN 171, CR 4.04, glucose 299, elevated ALT, alkaline phosphatase, troponin normal, low albumin, coags normal Influenza A & B are negative I discussed this case with Dr. dent. 76-year-old male with a recent history of acute kidney injury, liver failure presents with worsening weakness, kidney pain. EKG and troponins are reassuring that this is not cardiac event. Recent CT revealed a small abdominal aortic aneurysm near the level of the kidneys. However this appears to have been stable over time. Due to the recent imaging chose not to repeat. CMP reveals worsening kidney function. CBC reveals leukocytosis with left shift. Patient improved slightly with IV hydration however still weak and does not feel fit for discharge home. Discussed the case with hospitalist who agreed to accept. Consultation : Referral / Consult Name: Sonia Laura MD Consulted With: Hospitalist Call Returned at: 14:47 Mason Tender: Accepts admit Patient Discharge & Departure Impression: Primary Impression: Acute renal failure Acute renal failure type: unspecified Qualified Code: N17.9 - Acute kidney failure, unspecified Disposition: ADMITTED TO HOSPITAL Referrals: Garry Grullon MD (PCP) Garry Grullon MD, Seth PA-C Dec 23, 2016 11:31
[2016-12-23 11:35] LABS: TROPONIN T 0.01 ug/L (0.0-0.011)
--- NOTE | 2016-12-23 11:45 | DRSVH ---
PROCEDURE: X-RAY CHEST ONE VIEW, PORTABLE ([id number]) INDICATIONS: weakness TECHNIQUE: One view of the chest was acquired. COMPARISON: [facility], CT, CT CHEST ABD PELVIS WO CON, 12/06/2016, 10:51. Con Baez , CR, CHEST 2VW, 11/01/2016, 1:03 PM. FINDINGS: Surgical changes and devices: None. Lungs and pleura: No pleural effusions or pneumothorax. There is hyperinflation of the lungs with f lattening of the hemidiaphragms compatible with COPD. There are a few linear opacities redemonstrated in the lung bases likely representing atelectasis or scarring. No acute consolidation. Mediastinum: Mediastinal contours appear unchanged. Heart size is normal. Bones and chest wall: No suspicious bony lesions. Overlying soft tissues appear unremarkable. IMPRESSION: 1. Findings compatible with COPD redemonstrated without acute consolidation. Dictated by: Subhash Escalona M.D. on 12/23/2016 at 11:40 Approved by: Subhash Escalona M.D. on 12/23/2016 at 11:44
[2016-12-23 11:46] LABS: Magnesium 1.9 mg/dL (1.6-2.6)
[2016-12-23 12:02] LABS: BASOPHILS % (AUTO) 0 % (0-3); EOSINOPHILS % (AUTO) 0 % (0-5); MONOCYTES % (AUTO) 8 % (4-12); NEUTROPHILS % (AUTO) 82 % (40-74)
[2016-12-23 13:05] LABS: APPEARANCE,URINE HAZY (CLEAR,HAZY); COLOR,URINE STRAW (YELLOW)
[2016-12-23 13:06] LABS: OCCULT BLOOD,URINE SMALL (NEGATIVE); UROBILINOGEN,URINE NORMAL (NORMAL)
[2016-12-23] MEDS ORDERED: fentaNYL-PF 50 mCg/mL 2 mL Inj IV PRN (15:15)
--- NOTE | 2016-12-23 16:00 | NUR ---
ADMIT Report received from Vanessa Cagle RN in ED. Pt brought up via [facility] around 1600. Med Rec completed by admit nurse, admission assessments completed, pt oriented to unit, room, and call light. Plan to have pt watch "welcome" video. Contact with MD on proceeding with care.
[2016-12-23 16:15] LABS: TROPONIN T < 0.010 ug/L (0.0-0.011)
--- NOTE | 2016-12-23 16:21 | DRSVH ---
PROCEDURE: CT CHEST WITHOUT CONTRAST ([id number]) INDICATIONS: leukocytosis,cough TECHNIQUE: Noncontrast 5 mm thick sections acquired from the pulmonary apices to the posterior costophrenic angl es. 7 mm thick coronal and sagittal MIP reformats were then acquired. For radiation dose reduction, the following was used: automated exposure control, adjustment of mA and/or kV according to patient size. COMPARISON: [facility], CT, CHEST W/O CONTRAST, 05/25/2015, 12:27. [facility], CT, CT CHEST ABD PELVIS WO CON, 12/06/2016, 10:51. FINDINGS: Image quality: Excellent. Lungs and pleura: No acute air space opacities. There is mild emphysema with apical predominance, as before. No pleural effusions or pneumothorax. Central and peripheral airways are patent and normal in caliber. Mediastinum: Heart size is normal. There is calcification of the coronary vasculature. No pericardi al effusion. No mediastinal adenopathy by size criteria. Thoracic aorta and central pulmonary arter ies are normal in size. Esophagus is normal in caliber. No hiatal hernia. Bones and chest wall: No suspicious bony lesions. No vertebral body compression fractures. No axil luis alfredo or supraclavicular adenopathy by size criteria. Thyroid gland is within normal limits on noncon trast imaging. Abdomen: Visualized upper abdominal solid organs and bowel loops appear normal in the absence of con trast. Cholecystectomy clips are present. IMPRESSION: 1. No acute process. 2. Mild emphysema. 3. Coronary artery disease. Dictated by: Jia Maurice M.D. on 12/23/2016 at 16:17 Approved by: Jia Maurice M.D. on 12/23/2016 at 16:19
--- NOTE | 2016-12-23 16:36 | PCM.HPMED ---
Subjective Date of Service Dec 23, 2016 Primary Provider: Admitting Physician: Sonia Laura MD Primary Care Physician: Garry Grullon MD Attending Physician: Sonia Laura MD Admit Status: From the Emergency Department, Full Admit, [facility] Telemetry, Remote Telemetry Chief Complaint: Increased Weakness History of Present Illness: This is a 76-year-old male who has a history of O2 dependent COPD and was recently admitted at [facility] from every to December 19 with acute kidney injury secondary to ATN due to Bactrim, he also has a history of a type IV RTA induced, history of stage IIIc bladder cancer and low-grade prostate cancer status post prostatectomy and bladder reconstruction. He also was found to have elevated liver enzymes and hyperbilirubinemia during that hospitalization which was felt secondary to possible poor perfusion at some point in time and numbers progressively got better. Perfusion was most likely secondary to some hypotension during his admission or prior to admission. Since discharge he has been having increasing weakness finds it difficult to get out of bed and stand up. He notes that he has been drinking lots of fluids. And eating fine. He denies any chest pain does note progressive cough over at least the past several days. He denies any fevers or chills however. His evaluation in the emergency room today is significant for an elevated white count which is new since discharge 18.9 with 82% polys. At discharge his white count was approximately 9. He also today is found to be with a BUN of 171 and a creatinine of 4.04. Discharge numbers were BUN of 102 and creatinine of 3.86 potassium level at discharge was 3.7. Also found to have an elevated glucose of 299. Patient does note his glucose readings have been up to 460 at night and mid 200s during the day since discharge from hospital. He was discharged on 40 mg daily of prednisone. He notes improvement of lower extremity edema since discharge. Patient did have an episode while I was interviewing him of that appeared to be brief episode of possible aspiration he had been coughing and then was somewhat unresponsive did briefly for a second or so and then was alert. Monitor did not reveal any abnormalities in rate and rhythm was not able to see with the O2 sat was at the time of this episode. But it appeared that he may have aspirated at that time which led to that episode. Review of Systems: He denies any nausea vomiting. All other review of systems are reviewed and are negative except for as in history of present illness. Allergies Coded Allergies: indomethacin (Verified Allergy, Unknown, UNKNOWN, 12/13/16) niacin (Verified Allergy, Unknown, UNKNOWN, 12/13/16) simvastatin (Verified Allergy, Unknown, UNKNOWN, 12/13/16) sulfamethoxazole (Verified Adverse Reaction, Unknown, ATN, 12/23/16) trimethoprim (Verified Adverse Reaction, Unknown, ATN, 12/23/16) Uncoded Allergies: BUPROPIRON (Allergy, Unknown, HYPERGLYCEMIA, 12/13/16) Home Medications Scheduled Albuterol HFA (Proair HFA) 8.5 Gm Hfa.aer.ad 2 PUFFS INHALATION Q4H Clotrimazole 1% (Clotrimazole 1%) 30 Ml Solution 30 ML TP BID Cranberry Conc/C/Bacill Coag (Cranberry Tablet) 1 Each Tablet 2 EACH PO DAILY Glipizide (Glipizide) 10 Mg Tablet 10 MG PO BID Glipizide (Glipizide) 10 Mg Tablet 10 MG PO BID Gluc/Dontae-MSM#2/C/D3/Marcos/Born (Jlmnbguwdz-Sexqglflrdg-SNQ Tab) 1 Each Tablet 1 EACH PO DAILY Insulin Glargine (Lantus U100 Insulin Vial) 100 Unit/Ml Vial 40 UNIT SUBQ QAM Insulin Glargine (Lantus U100 Insulin Vial) 100 Unit/Ml Vial 32 UNIT SUBQ QPM Insulin Glargine (Lantus U100 Insulin Vial) 100 Unit/Ml Vial 1 UNIT SUBQ DAILYWL Insulin Glargine (Lantus U100 Insulin Vial) 100 Unit/Ml Vial 1 UNIT SUBQ HS Lovastatin (Lovastatin) 40 Mg Tablet 40 MG PO HS Metoprolol Tartrate (Metoprolol Tartrate) 25 Mg Tablet 25 MG PO BID Multivits-Min/FA/Lycopene/Lut (Centrum Silver Tablet) 1 Each Tablet 1 EACH PO DAILY Prednisone (Deltasone) 20 Mg Tablet 40 MG PO DAILY Rivaroxaban (Xarelto) 15 Mg Tablet 15 MG PO QPM Rivaroxaban (Xarelto) 15 Mg Tablet 15 MG PO DAILYWD Sodium Bicarbonate (Sodium Bicarbonate) 325 Mg Tablet 650 MG PO TID Tiotropium Staples (Spiriva) 18 Mcg Cap.w.dev 1 CAP IH DAILY Tiotropium Staples (Spiriva) 18 Mcg Cap.w.dev 18 MCG IH MORNING Scheduled PRN Acetaminophen (Acetaminophen) 325 Mg Tablet 325 MG PO Q4H PRN PRN For Fever Acetaminophen (Acetaminophen) 325 Mg Capsule 325 MG PO PRN For Pain Albuterol HFA (Proair HFA) 8.5 Gm Hfa.aer.ad 2 PUFFS INHALATION Q4H PRN PRN For Shortness of Breath Clotrimazole (Itch Relief) 1 % Cream..g. 15 GM TP PRN For Itching PMH Past Medical History Recent admission for liver dysfunction and ATN thought secondary to Bactrim therapy bladder and prostate cancer DVT Reports: Hyperlipidemia O2 dependent COPD Past Surgical History baldder reconstruction prostate surgery Reports: Appendectomy, Cholecystectomy Family History History of coronary artery disease Social History Hx Alcohol Use: Yes Hx Substance Use: No Hx Tobacco Use: Yes (quit 12 years ago) Smoking Status: Former Smoker Living Arrangement: with Family Exam Vital Signs Vital Sign - Last Date Time Temp Pulse Resp B/P Pulse Ox O2 Delivery O2 Flow Rate FiO2 12/23/16 16:22 36.6 103 20 119/75 99 Nasal Cannula 3.00 Exam Constitutional: Elderly man was coughing Head: Normocephalic atraumatic Eyes: PERRLA DC Neck: Carotids 2+ over 4 without bruits Chest: Diffuse rhonchi Cor: Regular rate and rhythm S1-S2 without murmur Abdomen: Soft mild diffuse tenderness no rebound or guarding Extremities: 1+ bilateral lower extremity edema Skin: No rashes noted Psych mood and affect are appropriate Neuro: Alert and oriented 3 motor strength is intact bilaterally Lab and Diagnostics Labs Laboratory Tests 72 Hours Test 12/23/16 11:00 12/23/16 12:16 12/23/16 15:15 White Blood Count 18.9th/mm3 (3.8-10.1) Red Blood Count 3.13mil/mm3 (4.40-5.80) Hemoglobin 9.0g/dL (13.8-17.2) Hematocrit 27.6% (41.0-50.0) Mean Corpuscular Volume 88.2fL (81-100) Mean Corpuscular Hemoglobin 28.8pg (27.0-35.0) Mean Corpuscular Hemoglobin Concent 32.6% (32.0-37.0) Red Cell Distribution Width 15.1% (12.3-15.4) Platelet Count 321bil/L (150-400) Neutrophils (%) (Auto) 82% (40-74) Lymphocytes (%) (Auto) 8% (14-46) Monocytes (%) (Auto) 8% (4-12) Eosinophils (%) (Auto) 0% (0-5) Basophils (%) (Auto) 0% (0-3) Myelocytes % 2% (0-0) Prothrombin Time 12.2sec (8.1-12.5) Prothromb Time International Ratio 1.14ratio Activated Partial Thromboplast Time 28.5sec (22.8-33.0) Sodium Level 132mEq/L (134-144) Potassium Level 5.7mEq/L (3.5-5.2) Chloride Level 98mEq/L (97-108) Carbon Dioxide Level 14mmol/L (18-29) Blood Urea Nitrogen 171mg/dL (8-27) Creatinine 4.04mg/dL (0.76-1.27) Estimat Glomerular Filtration Rate 15mL/min (>59) Glucose Level 299mg/dL (60-99) Calcium Level 8.6mg/dL (8.5-10.1) Magnesium Level 1.9mg/dL (1.6-2.6) Total Bilirubin 0.9mg/dL (0.0-1.2) Aspartate Amino Transf (AST/SGOT) 28U/L (0-50) Alanine Aminotransferase (ALT/SGPT) 167U/L (0-44) Alkaline Phosphatase 217U/L (25-160) Troponin T < 0.010ug/L (0.0-0.011) Total Protein 5.8g/dL (6.4-8.4) Albumin 3.4g/dL (3.4-5.0) Procalcitonin 0.38ng/mL (0.00-0.08) Urine Color Straw (YELLOW) Urine Appearance Hazy (CLEAR,HAZY) Urine pH 7.0 (5.0-8.0) Urine Specific [place] 1.010 (1.003-1.035) Urine Protein Negativemg/dL (NEG,TRACE) Urine Glucose (UA) Negativemg/dL (NEGATIVE) Urine Ketones Negativemg/dL (NEGATIVE) Urine Occult Blood Small (NEGATIVE) Urine Nitrite Negative (NEGATIVE) Urine Bilirubin Negative (NEGATIVE) Urine Urobilinogen Normalmg/dL (NORMAL) Urine Leukocyte Esterase Trace (NEGATIVE) Urine RBC 3-10/hpf (0-2) Urine WBC 6-10/hpf (0-5) Urine Epithelial Cells Occasional/hpf (NONE-MOD) Urine Crystals None seen (NONE SEEN) Urine Bacteria Few/hpf (NONE-FEW) Urine Hyaline Casts None/lpf (NONE) Urine Granular Casts None seen (NONE SEEN) Urine Waxy Casts None seen (NONE SEEN) Urine Red Blood Cell Casts None seen (NONE SEEN) Urine White Blood Cell Casts None seen (NONE SEEN) Urine Mucus None seen (None Seen) Urine Trichomonas None seen (NONE SEEN) Urine Yeast None (NONE SEEN) Urinalysis Comment None Urine Culture Reflexed Indicated Result Diagram: 12/23/16 1100 12/23/16 1100 X-Rays, CTs and MRIs PROCEDURE: X-RAY CHEST ONE VIEW, PORTABLE ([id number]) INDICATIONS: weakness TECHNIQUE: One view of the chest was acquired. COMPARISON: [facility], CT, CT CHEST ABD PELVIS WO CON, 12/06/2016, 10:51. [facility], CR, CHEST 2VW, 11/01/2016, 1:03 PM. FINDINGS: Surgical changes and devices: None. Lungs and pleura: No pleural effusions or pneumothorax. There is hyperinflation of the lungs with flattening of the hemidiaphragms compatible with COPD. There are a few linear opacities redemonstrated in the lung bases likely representing atelectasis or scarring. No acute consolidation. Mediastinum: Mediastinal contours appear unchanged. Heart size is normal. Bones and chest wall: No suspicious bony lesions. Overlying soft tissues appear unremarkable. IMPRESSION: 1. Findings compatible with COPD redemonstrated without acute consolidation. Dictated by: Subhash Escalona M.D. on 12/23/2016 at 11:40 Approved by: Subhash Escalona M.D. on 12/23/2016 at 11:44 12-lead ECG Pending at the time of this dictation Assessment & Plan # Increasing weakness, acute, present on admission May be due to some dehydration and worsening renal function. May also be due to possible aspiration recurrences. # Acute kidney failure on top of subacute kidney failure, acute, present on admission BUN still high we will go ahead and give him IV fluids Some of his dehydration may be secondary to his hyperglycemia Check labs in a.m. Consider nephrology consultation in a.m. if not seeing much improvement # Hyperkalemia, acute, present on admission No changes seen on telemetry but will check 12-lead EKG which I cannot find if one was done Give per rectum Kayexalate and this was chosen because I am going to make him nothing by mouth because of aspiration risk Check serial potassium levels every 4 hours # Hyperglycemia in this patient with type II diabetes, acute, present on admission We will place on subcutaneous regular insulin protocol We will also review what his home regimen is and really initiate Give IV fluid hydration # Leukocytosis, acute, present on admission Urinalysis did not suggest urinary tract infection however will repeat UA with micro- I suspect may be recurrent aspiration possible aspiration pneumonia not seen on chest x-ray Will check CT of chest without contrast Blood cultures 2, check sedimentation rate, CRP Initiate IV Zosyn # Possible recurrent aspiration and aspiration pneumonia, acute, present on admission Check CT of chest without contrast and initiate IV Zosyn Check sputum studies #DVT prophylaxis Pt is on xarelto # CODE STATUS discussed with patient and family and wishes full code VTE Prophylaxis: Sub-Q Heparin (Unfractionated), SCDs, Other (the patient is on xarelto) Resuscitation Status: CPR: Attempt Resuscitation Time spent 60 minutes Sonia Laura MD Dec 23, 2016 16:36
[2016-12-23] MEDS ORDERED: Piperacillin-Tazo 3.375 Gm Inj 3.375 GM in Dextrose 5% Minibag Plus 50 ML IV ONE (17:00)
[2016-12-23] MEDS ORDERED: Albuterol 2.5 mg/3 mL Inhalation Solution NEB PRN (17:05)
[2016-12-23 17:47] LABS: INR 1.13 ratio
[2016-12-23] MEDS ORDERED: Heparin 5,000 Unit/mL Inj SUBQ SCH (18:00)
[2016-12-23] MEDS: 0.9% Sodium Chloride 1,000 ML IV SCH (18:07)
[2016-12-23] MEDS: Insulin Human REGular 300 Unit/3 mL Inj SUBQ SCH (18:10)
[2016-12-23] MEDS ORDERED: Insulin Human REGular (HUMulin-R) 100 Unit/mL 10 mL SUBQ ONE (18:45)
[2016-12-23] MEDS ORDERED: Sodium Bicarb 8.4% (10 mEq) 1 mEq/mL 10 mL Syringe IVPUSH ONE (19:00)
[2016-12-23] MEDS ORDERED: Albuterol 2.5 mg/3 mL Inhalation Solution NEB ONE (19:00)
[2016-12-23] MEDS: Albuterol-Ipratropium 3 mL Inhalation Solution NEB SCH (20:23)
[2016-12-23 21:30] LABS: TROPONIN T 0.036 ug/L (0.0-0.011)
--- NOTE | 2016-12-23 21:37 | NUR ---
Critical Labs Notified by LAB of critical Potassium: 6.2 MD paged and starting with plan of care. Notified by LAB of critical Troponin: 0.036 MD paged of value.
--- NOTE | 2016-12-23 21:38 | NUR ---
Lightheadedness Pt requested to use Bedside commode. 2 person assist to help pt up. As pt sat up in bed, became very lightheaded and slouched back in bed. No close call on fall. VS taken (hypotensive) and recorded. Pt instructed to stay in bed, bed alarm on. Continuing to monitor closely, frequent rounding.
[2016-12-23] MEDS: Ondansetron 2 mg/mL 2 mL Inj IVPUSH PRN (21:51)
[2016-12-23] MEDS: Insulin GLARgine 100 Unit/mL Syringe SUBQ SCH (21:56)
[2016-12-23] MEDS: Famotidine Inj 20 MG in IV Premix 1 EACH IV SCH (22:31)
[2016-12-23] MEDS: Piperacillin-Tazo 3.375 Gm Inj 3.375 GM in Dextrose 5% Minibag Plus 50 ML IV SCH (23:30)
--- NOTE | 2016-12-23 23:32 | NUR ---
Kayexelate Administered Kayexelate via suppository, using enema bag. Cue pt to retain for about 30-60 minutes. Pt verbalizes understanding.
[2016-12-23] MEDS ORDERED: Insulin LISPRO 300 Unit/3 mL Inj SUBQ ONE (23:55)
[2016-12-24] VITALS (17 sets, daily range): BP systolic 72–130; BP diastolic 34–105; PULSE 99–124; RESP 16–26; O2SAT 93–100
[2016-12-24] MEDS ORDERED: Insulin Human REGular-Omnicell 100 Unit/mL IV ONE (01:45)
[2016-12-24] MEDS ORDERED: Sodium Bicarb (50 mEq) 8.4% 1 mEq/mL 50 mL Syringe IVPUSH ONE (01:45)
[2016-12-24] MEDS ORDERED: Albuterol 2.5 mg/3 mL Inhalation Solution NEB ONE (01:50)
[2016-12-24] MEDS ORDERED: Sodium Polystyrene Sulfonate 0.25 Gm/mL 500 mL Suspension PO ONE (01:50)
[2016-12-24] MEDS ORDERED: Sodium Bicarb 8.4% (10 mEq) 1 mEq/mL 10 mL Syringe ONE (02:02)
[2016-12-24] MEDS: Albuterol-Ipratropium 3 mL Inhalation Solution NEB SCH ×4 (02:08→21:32)
[2016-12-24] MEDS: Insulin Human REGular 300 Unit/3 mL Inj SUBQ SCH ×5 (02:30→22:23)
[2016-12-24] MEDS: Ondansetron 2 mg/mL 2 mL Inj IVPUSH PRN ×2 (02:48→09:42)
[2016-12-24] MEDS: 0.9% Sodium Chloride 1,000 ML IV SCH (03:07)
--- NOTE | 2016-12-24 05:17 | NUR ---
HYPERKALEMIA/BG Patient given kayexalate via enema by evening RN. Patient unable to retain it for any time. BG remained high. New orders received to give additional SQ dose of humalog. New Critical result for potassium reported to MD. New orders for bicarb, albuterol, IV insulin, and PO kayexalate received. Patient placed in high position and closely monitored for PO intake of medication. Given 8mg zofran prior to administration of Kayexalate. Patient able to tolerate one bottle, refused bottle number 2. BG remained in 300s, MD notified, plan to wait until morning labs and re-check. Patient appears to be resting comfortably now. Awaiting labs for further treatment plans.
[2016-12-24 06:26] LABS: BASOPHILS % (AUTO) 0.1 % (0-3); EOSINOPHILS % (AUTO) 0 % (0-5); MONOCYTES % (AUTO) 10.2 % (4-12); Mean Corpuscular Hemoglobin 28.3 pg (27.0-35.0); Mean Corpuscular Volume 90.3 fL (81-100); NEUTROPHILS % (AUTO) 84.2 % (40-74); Platelet Count 261 bil/L (150-400)
[2016-12-24 07:14] LABS: TROPONIN T 0.04 ug/L (0.0-0.011)
[2016-12-24] MEDS ORDERED: predniSONE 20 mg Tablet PO SCH (08:30)
--- NOTE | 2016-12-24 09:00 | NUR ---
Transfer to [facility] Rec'd call from lab this am regarding elevated K, BUN/Cr, as well as troponin. BG also remains elevated in 300's, BG covered w/ sliding scale. Notified hospitalist via cookpaging. Per report, pt has gained weight since yesterday, is edematous and has little output from dey. Reduced IVF's to KVO. Pt also c/o CP of 5/10 that worsens with deep breath. Stat EKG done. Hospitalist aware. Examiner Of Currency in to see pt. Plans made to transfer to [facility] for emergent placement of dialysis catheter and then dialysis. Pt transferred to 3029, report given to [facility] RN. aware and with pt during transfer, all belongings w/ pt.
--- NOTE | 2016-12-24 09:05 | NUR ---
Arrival to [facility]/dialysis Pt transferred via hospital bed to room 2028 around 0845, accompanied by . spin tank tender and D[employer] Vat Worker in to place right femoral dialysis catheter and hemodialysis treatment started shortly after.
[2016-12-24] MEDS ORDERED: Desmopressin Inj 21 MCG in 0.9% Sodium Chloride 50 ML IV ONE (09:25)
--- NOTE | 2016-12-24 09:52 | NUR ---
Physical Therapy: PT order received. Pt just transferred to [facility], has femoral line placement and not appropriate for PT per MD. PT to sign off at this time. Please re-order once pt stabilizes and is able to begin mobilization.
--- NOTE | 2016-12-24 10:34 | PCM.PROC ---
Procedure Note Date of Service: Dec 24, 2016 Pre Procedure Diagnosis: Acute tubular necrosis with uremia requiring dialysis. Post Procedure Diagnosis: Same Procedure: Insertion of right femoral venous dialysis catheter Provider and Golf Course Architect: Luis Madison D.O. Indication for Procedure: Acute tubular necrosis with uremia and hyperkalemia Procedure Details: After informed consent was obtained from the patient's the procedure was explained to both and the patient. The risks and benefits were also detailed including infection and bleeding. Here in the right femoral vessels was palpated and then visualized with ultrasound. The area was marked and then was prepped and draped in a sterile manner. Local anesthesia was obtained with infiltration, approximately 8 mL of lidocaine. Once anesthesia was obtained. The right femoral vein was entered with the will call order clerk needle as noted above and verified by a flash of venous blood. Metal Cabinet Finisher needle was removed and with ultrasound visualization a "needle was connected to a 10 mL syringe and previously flushed with saline. Following the track of the will call order clerk needle the femoral vein was once again reentered with the syringe withdrawn leaving the needle in place. Once again venous blood was noted. A flexible guidewire was threaded through the Cook needle and the needle was withdrawn leaving the guidewire in place. A small incision was made on the surface of the guidewire and a small dilator was passed into the vein and subsequently withdrawn leaving the guidewire in place. Following severalmoregraduateddilatorswerepassedandwithdrawnonceagainleavingtheguidewirein place. 24 cm Mahurkar catheter which had previously been flushed with saline was then passed over the guidewire and guidewire was subsequently pulled out. Catheter was was once again flushed and hemostatic clips were attached and WERE applied to both into the catheter. The catheter was sutured in place with 2 interrupted sutures and a sterile dressing applied. Patient tolerated the procedure well and there were no apparent complications. Luis Mcintosh DO Dec 24, 2016 10:34
--- NOTE | 2016-12-24 12:02 | CONS ---
[address] [address] CONSULTATION REPORT PATIENT: ANGEL SOLIS I : 1940 MR#: [id number] ADMIT: 12/23/2016 JOB ID: [id number] DATE OF SERVICE: HISTORY: The patient is a 76-year-old, white male, who was well known to me from a recent consultation for acute kidney injury. He was discharged approximately 4-5 days ago, and was readmitted over the night with acute kidney injury, severe hyperkalemia, and metabolic acidosis. His BUN at time of admission was 174. Renal consultation is being sought for further evaluation and management of his uremia and acute kidney injury. The patient has a long and somewhat complicated history of urinary tract issues following the placement of a neobladder following a radical cystectomy for bladder cancer. This was done by Dr. Mchugh, and he is now being followed by Dr. Bledsoe. Following this, he had recurrent urinary tract infections and his baseline creatinine in June 2016 was 1.66, and in late November of this year was 2.0. Prior to his admission 10 days ago, he had a 3-week history of urinary tract infections and had been on several rounds of antibiotic. He was given a 10 day course of Bactrim which he completed. Following this, he come in complaining of weakness, nausea without vomiting, and general malaise. At the time he came to the hospital, his BUN and creatinine were 83 and 3.3, respectively, and his potassium was 5.9. During his most recent hospitalization, he was treated with IV hydration and corticosteroids, with some mild improvement in his renal function. However, at time of discharge, his renal function remained quite poor with a creatinine of 3.8. Since discharge, his states that he has been doing quite poorly. He is more lethargic, anorectic, nausea with occasional vomiting, myoclonic jerks, and general malaise. He was brought back into the emergency department and at the time in the emergency department, he was found to be in acute on chronic kidney injury. His sodium was 132, potassium was 5.8, chloride 98, CO2 of 14, BUN and creatinine 171 and 4.04. His white count was 18.9, with a hemoglobin of 9 and platelet count of 321. He had also at time of discharge, had been on Xarelto. He was treated with hydration, sodium bicarbonate, Kayexalate, and insulin, without significant improvement. I was consulted this morning for further evaluation of his kidney injury. PAST MEDICAL HISTORY: Is significant for a history of bladder cancer, with formation of a neobladder and recurrent urinary tract infections. Past medical history is also significant for acute on chronic kidney injury, recurrent urinary tract infections, insulin-requiring diabetes mellitus, metabolic acidosis secondary to kidney disease, DVT, hyperlipidemia, and hypertension. PAST SURGICAL HISTORY: Is significant for bladder reconstruction, prostate surgery, appendectomy, and cholecystectomy. ALLERGIES: He is allergic to: 1. BUPROPION. 2. INDOMETHACIN. 3. NIACIN. 4. SIMVASTATIN. 5. BACTRIM. SOCIAL HISTORY: He has a remote history of smoking, and currently does not smoke or drink. He had been in a fair state of health until several months ago when he began to fall ill. FAMILY HISTORY: Noncontributory. MEDICATIONS: At time of admission, include albuterol, insulin, glipizide, lovastatin, metoprolol, prednisone, Xarelto, bicarbonate, and Spiriva. REVIEW OF SYSTEMS: As detailed above. Otherwise is noncontributory. PHYSICAL EXAMINATION: Revealed an ill, pale-appearing, 76-year-old gentleman, who was able to answer simple questions and was alert. He had evidence of a tremor and asterixis. His blood pressure was 111/70, with a pulse rate of 99. HEENT examination was remarkable for pale sclerae. Neck is supple without adenopathy, thyromegaly or jugular venous distention. Lungs are clear, though somewhat diminished breath sounds were noted. Heart was regular and rhythmical with a soft systolic murmur. Abdomen is soft, with diminished bowel sounds. There was no tenderness, rebound, guarding or masses noted. Extremities showed some mild trivial generalized edema in the lower extremities. There were no evidence of any rashes. Skin turgor was fair. LABORATORY EXAMINATION: This morning, his white count is 19.5, hemoglobin 7.0, hematocrit 22.3, red cell indices and platelet count were normal and he had 84 segs. This morning, his sodium is 134, potassium 6.1, chloride of 103, bicarbonate is 10, BUN is 207 with a creatinine of 4.6. His glucose this morning was 364. Alkaline phosphatase was elevated at 163, with an ALT of 111. IMPRESSION: 1. Acute tubular necrosis. 2. Acute on chronic kidney injury. 3. Hyperkalemia. 4. Metabolic acidosis. 5. Chronic interstitial nephritis. 6. Diabetic nephropathy. 7. Hypertension with hypertensive heart disease and hypertensive nephrosclerosis. RECOMMENDATION: I will go ahead and place a femoral dialysis catheter in him and I will arrange for emergent dialysis. The patient has is being dialyzed today for 3 hours on a Revaclear max dialyzer and a 2 potassium bath. He will be also dialyzed on 38 bicarbonate and a 137 sodium. There is no heparin to be given and, will attempt to take one L of fluid as tolerated. He will also be dialyzed once again tomorrow. Once again, I would like to thank you for allowing me to participate in the care of this rather unfortunate patient. I will be following him closely with you.
[2016-12-24] MEDS: Piperacillin-Tazo 3.375 Gm Inj 3.375 GM in Dextrose 5% Minibag Plus 50 ML IV SCH (12:17)
--- NOTE | 2016-12-24 13:00 | NUR ---
Evaluation completed. Please go to "Notes" then click on "Assessments and Notes" (bottom left corner of screen). Then select appropriate discipline tab on top of screen.
--- NOTE | 2016-12-24 13:06 | NUR ---
Dialysis note [facility] tx. 3hrs. No net UF removed. QB 350 thru newly placed R femoral catheter. On BP 79/52, and running in the 60's-90's systolic thru tx. Pt c/o back pain, nausea and restless thru tx. Hep serologies done recently for last admission so not rechecked per Dr. Mcintosh. Off BP 109/77 HR 85. Catheter dwelled with 1000/1 U heparin and secured to thigh.
--- NOTE | 2016-12-24 13:46 | DRSVH ---
PROCEDURE: X-RAY CHEST ONE VIEW, PORTABLE ([id number]) INDICATIONS: SOB/CP TECHNIQUE: One view of the chest was acquired. COMPARISON: 12/23/2016 FINDINGS: Surgical changes and devices: None. Lungs and pleura: No pleural effusions or pneumothorax. Mild elevation left hemidiaphragm. Left retr ocardiac density may represent atelectasis or early infiltrate. Remainder of lungs clear. Mediastinum: Mediastinal contours appear normal. Heart size is normal. Aortic calcification. Bones and chest wall: No suspicious bony lesions. Overlying soft tissues appear unremarkable. IMPRESSION: 1. Possible developing left lower lobe pneumonia. Correlate clinically with short interval followup r ecommended. Dictated by: Jesus Alberto Morillo M.D. on 12/24/2016 at 13:43 Approved by: Jesus Alberto Morillo M.D. on 12/24/2016 at 13:45
--- NOTE | 2016-12-24 13:49 | NUR ---
BP/SOB/Nausea/Back pain/catheter/RSV + Pt's BPs ran low throughout dialysis and continues to be 80/50s post treatment. HRs 110s. Stat H&H drawn w/ out changes from morning labs. Pt c/o shortness of breath intermittently. RT in X2 for neb treatments, which pt states helps some. 100% on 3L oxygen, which is home oxygen dose. Pt c/o nausea X1 during dialysis; medicated w/ 8mg IV zofran, which was effective. Pt c/o generalized back pain 4/10 throughout dialysis. Frequent repositioning and 25mcg IV fentanyl given w/ some relief. Pt's dey flushed X1 w/ moderate mucous/threads. Notified by micro of positive RSV swab. Placed in droplet precautions and family educated.
--- NOTE | 2016-12-24 14:07 | NUR ---
Chest pain At 1245, pt c/o chest pain, which he reports he has had intermittently throughout night/morning. States it's on his right side, 08/19. Vitals at this time, HR 117, BP 84/50, 94% on 3L. Stat EKG ordered and MD notified to discuss pain management w/ low BP. Confirmed w/ senior data architect that 1mg IV morphine safe to administer w/ BP. Hospitalist in to evaluate patient. Pt now resting comfortably; pain resolved.
--- NOTE | 2016-12-24 14:29 | NUR ---
Case Management: SEYMOUR delivered and explained to pt. and spouse. Original placed in chart; copy at bedside. Renu Rothman RN
--- NOTE | 2016-12-24 16:57 | DRSVH ---
[facility] [address] [place] [address] Echocardiogram Report Name: ANGEL SOLIS IStudy Date: 12/24/2016 Height: 66 in Hospital Exam Location: [facility] Weight: 273 lb Gender: Male BSA: 2.3 m2 : 1940 Age: 76 yrs BP: 97/54 mmHg Reason For Study: CHEST PAIN, HYPOTENSION Ordering Physician: HOSPITALIST [facility] Performed By: Audie Jackson Referring Physician: JOVAN FERNANDEZ Interpretation Summary The left ventricular cavity is small and underfilled. The left ventricle is hyperdynamic. The ejection fraction is estimated to be >80%. The echo findings are consistent with moderate dynamic left ventricular intracavitary obstruction. Consider aggressive IV hydration. The right ventricle grossly appears normal in size with probable normal systolic function. Pulmonary artery pressures cannot be estimated because of the lack of a measurable TR jet velocity. The left atrium grossly appears normal in size. The right atrium grossly appears normal in size. There is no significant valvular heart disease. The aortic root is mildly dilated. The ascending aorta is mildly enlarged. There is a trivial pericardial effusion noted. There is an anterior echo-free space consistent with a fat pad. Procedure: A two-dimensional transthoracic echocardiogram with color flow and Doppler was performed. The study quality was technically adequate. Comparison is made with the echocardiogram of 04/05/14. The patient was in sinus tachycardia with heart rates between 101-105 bpm during the exam. Left Ventricle: The left ventricular cavity is small. There is normal left ventricular wall thickness. The echo findings are consistent with moderate dynamic left ventricular intracavitary obstruction. The left ventricle is hyperdynamic. The ejection fraction is estimated to be >80%. There are no focal wall motion abnormalities. Right Ventricle: The right ventricle grossly appears normal in size with probable normal systolic function. There is mild right ventricular hypertrophy. Atria: The left atrium grossly appears normal in size. The right atrium grossly appears normal in size. The interatrial septum is intact with no evidence for an atrial septal defect. Aortic Valve: The aortic valve is normal in structure and function. No aortic regurgitation is present. Tricuspid Valve: The tricuspid valve is not well visualized, but is grossly normal. Pulmonary artery pressures cannot be estimated because of the lack of a measurable TR jet velocity. Pulmonic Valve: The pulmonic valve is not well seen, but is grossly normal. There is a trace or physiologic amount of pulmonic regurgitation. There is no significant valvular heart disease. Great Vessels: The aortic root is mildly dilated. The ascending aorta is mildly enlarged. The pulmonary artery is normal size. The IVC is of normal diameter and collapses greater than 50% with a sniff. This suggests a low right atrial pressure of 3 mm Hg. Pericardium/ Pleura There is a trivial pericardial effusion noted. There is an anterior echo-free space consistent with a fat pad. There is no pleural effusion. MMode/2D Measurements & Calculations LVOT diam: 2.5 cm Ao root diam: 4.2 cm asc Aorta Diam: 3.8 cm Doppler Measurements & Calculations Ao V2 max MV E max spike MV E/A: 0.59 MV dec time : 299.2 cm/sec : 56.1 cm/sec : 0.22 sec Ao max PG MV A max spike : 35.8 mmHg : 95.7 cm/sec Ao mean PG : 16.8 mmHg LVOT Max Spike : 145.6 cm/sec JOSÉ MIGUEL(I,D): 3.4 cm sev ratio: 0.70 Ao V2 mean LV V1 max PG JOSÉ MIGUEL indexed to BSA : 190.1 cm/sec (cm^2/m^2): 1.5 Ao V2 VTI: 29.6 cm LV V1 VTI: 20.8 cm JOSÉ MIGUEL(V,D): 2.4 cm2 Reading Physician:DANNY
--- NOTE | 2016-12-24 17:19 | PCM.PNMED ---
Subjective Date of Service Dec 24, 2016 Subjective complaining of back pain during dialysis this morning and then later on complaining of right sided chest pain Exam Vital Signs Vital Sign - Last Date Time Temp Pulse Resp B/P Pulse Ox O2 Delivery O2 Flow Rate FiO2 12/24/16 16:10 104 16 106/52 12/24/16 15:10 36.4 96 Nasal Cannula 3.00 Intake and Output 12/23/16 12/23/16 12/24/16 Cumulative From/Thru 15:00 23:00 07:00 12/23/16 11:04 - 12/24/16 06:28 Intake Total 0 ml 1302 ml 1302 ml Output Total 500 ml 1100 ml 325 ml 1925 ml Balance -500 ml -1100 ml 977 ml -623 ml Intake Oral 0 ml 0 ml 0 ml IV Total 1302 ml 1302 ml Output Urine Total 500 ml 1100 ml 325 ml 1925 ml # Bowel Movements 0 0 General: Alert, Cooperative Head: Normal Eyes: PERRLA, EOMI, Scleral Anicteric Nose: Mucous Membr Moist/[place] Mouth: Mucous Membr Moist/[place] Neck: Supple Chest & Lungs: Clear to auscultation & percussion, Other (right lateral chest wall tender to palpation) Cardiovascular: Regular Rate/Rhythm Pulses: NL carotid, radial, femoral, DP, PT Abdomen: Non-tender, Non-distended, Normoactive bowel tones, Soft Extremities: No cyanosis/clubbing/edma bilat Neurological: Grossly Neurologically Intact, Normal Speech IVs and Medications Medications Reviewed: Medications were reviewed in detail Lab and Diagnostics Result Diagram: 12/24/16 1556 12/24/16 0600 X-Rays, CTs and MRIs PROCEDURE: X-RAY CHEST ONE VIEW, PORTABLE ([id number]) IMPRESSION: 1. Findings compatible with COPD redemonstrated without acute consolidation. Dictated by: Subhash Escalona M.D. on 12/23/2016 at 11:40 Approved by: Subhash Escalona M.D. on 12/23/2016 at 11:44 Date of Service: 12/24/16 1317 PROCEDURE: X-RAY CHEST ONE VIEW, PORTABLE ([id number]) IMPRESSION: 1. Possible developing left lower lobe pneumonia. Correlate clinically with short interval followup recommended. Dictated by: Jesus Alberto Morillo M.D. on 12/24/2016 at 13:43 Approved by: Jesus Alberto Morillo M.D. on 12/24/2016 at 13:45 Assessment & Plan 76-year-old male with history of O2 dependent COPD and was recently admitted at [facility] and discharged on 12/20/16 with acute kidney injury secondary to ATN due to Bactrim, also has a history of a type IV RTA induced, history of stage IIIc bladder cancer and low-grade prostate cancer status post prostatectomy and bladder reconstruction.Since discharge he has been having increasing weakness finds it difficult to get out of bed and stand up. Family reports possible episode of aspirating on food the night prior to presentation but has been having cough and generalized malaise before that as well. # Increasing weakness, acute, present on admission - May be due to some dehydration and worsening renal function. - May also be due to possible aspiration recurrences. - respiratory PCR also positive fro RSV - further management as noted below # RASTA on top of subacute kidney failure, present on admission with associated azotemia and hyperkalemia. ongoing - nephrology consulted this am and input and management by Dr. Mcintosh greatly appreciated. - pt undergoing emergent dialysis today - will f/u w/ further recs by nephrology regarding fluid management # Hyperkalemia, acute, present on admission - post several rounds of Kayexalate overnight - dialysis as noted above # Hyperglycemia in this patient with type II diabetes, acute, present on admission - c/w ISS - f/u # Leukocytosis, acute, present on admission - UA negative - initial CXR and CT without evidence of pneumonia but repeat CXR today with possible developing Left pneumonia. ? aspiration vs HCAP given recent hospitalization - c/w Zosyn started on admission - ID consulted and will f/u w/ further recs regarding Abx choice # Possible recurrent aspiration and aspiration pneumonia, acute, present on admission - speech/swallow eval # DVT prophylaxis: - Per notes by Dr. Pompa: "In 2009 he had a perioperative DVT. Was placed on Coumadin, then had significant bleeding issues in the surgical bed and the Coumadin was discontinued and he had an IVC filter since then that was never removed. ... 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 ... He is on Xarelto. 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 The V/ Q scan showed intermediate risk category and he had an elevated D-dimer, but because of his kidney function, a CT angio was deferred. Therefore, he has been empirically placed on Xarelto since September 2014 ." - Stop Xarelto given RASTA/subacute kidney injury - cover with SC heparin for now # Chest pain. acute. poa. - right sided and reproducible with palpation - likely musculoskeletal - c/w supportive care and f/u # History of COPD with possible acute exacerbation - no significant wheezing on exam - c/w O2 - Neb treatment standing and as needed # Acute RSV infection - supportive care and droplet precaution # Acute on chronic anemia. - no sign of active bleeding at this time - repeat h/h and consider one unit of PRBC transfusion per discussion with nephrology # Acute hypotension. poa. ongoing - ? acute sepsis vs volume depletion vs cardiogenic etiology - check Echo - possible PRBC transfusion as noted # Acute on chronic lumbago - c/w supportive care # Goals of care - full code per discussion with patient and his today. May readdress the issue if clinical course deteriorate and determination made to need ongoing dialysis Dispo: 4-5 days pending above issues VTE Prophylaxis: Sub-Q Heparin (Unfractionated), SCDs, Other (the patient is on xarelto) Resuscitation Status: CPR: Attempt Resuscitation Time spent 45 min Manuel Bermeo Dec 24, 2016 17:19
[2016-12-24] MEDS: Famotidine Inj 20 MG in IV Premix 1 EACH IV SCH (22:15)
[2016-12-24] MEDS: Insulin GLARgine 100 Unit/mL Syringe SUBQ SCH (22:23)
--- NOTE | 2016-12-24 23:39 | CONS ---
[address] [address] CONSULTATION REPORT PATIENT: ANGEL SOLIS I : 1940 MR#: [id number] ADMIT: 12/23/2016 JOB ID: [id number] DATE OF SERVICE: 12/24/[address] Bermeo. REASON FOR CONSULTATION: RSV pneumonitis with possible bacterial superinfection. HISTORY OF THE PRESENT ILLNESS: The patient is a chronically ill gentleman with a wide variety of medical problems including oxygen-dependent COPD, chronic renal insufficiency with a history of bladder cancer and formation of a neobladder and diabetes. The patient was admitted to this facility back on December 13. At that time the problem was weakness and fatigue and it was found that he had an extremely elevated creatinine to 4 which was new. This was thought to be on the basis of a long course of Bactrim he had received for treatment of his recurring urinary tract infections. During the course of his admission, which started December 13 and ended December 19, the patient's renal function has improved somewhat as did his RTA type 4-induced metabolic acidosis and hyperkalemia. The patient was also noted to have a hepatitis which was also thought to be secondary to Bactrim and he was discharged in somewhat improved condition on December 19. Unfortunately, the patient only stayed at home four days before he was readmitted yesterday on the with just progressive weakness and a continual cough. The patient notes he is always short of breath because of his underlying COPD and usually uses oxygen at home, but the shortness of breath and cough have become somewhat worse and it seemed like that cough started during his last couple days of his most recent admission here on or about December 16 or . In addition to the vague increasing cough and perhaps increasing shortness of breath, the patient also felt he was becoming weaker and weaker to the point he could not even make a few steps within his house. All of these symptoms led him back to the emergency department where he was found to have a creatinine which was back up to 4 as well as a leukocytosis. It is notable that the patient was taking substantial doses of prednisone at home to treat what was thought to be a Bactrim-induced renal injury so his leukocytosis upon re-presentation of December 23 may have been due largely to the steroids. In any event, because of his progressive weakness, increased creatinine and increased white count he was readmitted. Subsequent to his admission, it was found that he had RSV and this was determined by a PCR study of the nasopharynx. There were also concerns that he may have aspirated in the ED as his family noticed that he was coughing and appeared to be choking briefly for a few seconds right about the time he was admitted and so there is concern that he may have suffered a bacterial superinfection superimposed upon his proven RSV respiratory tract infection. Since readmission yesterday, the patient has been started on Zosyn for broad-spectrum antibiotic and ID consultation is requested regarding the possibility of bacterial pneumonia superimposed on the RSV pneumonia. The patient tells me he always has a cough at home and it seems a bit worse lately but not dramatically so. He reports that the increase in his cough occurred during the last three days of his admission which concluded on December 19. It has been minimally productive of some whitish sputum. He has not had any fevers or chills or sweats in association with this increasing cough/pulmonary infection episode over the past several days. He tells me tonight basically his shortness of breath is something relatively close to his normal quite impaired baseline. He denies other symptoms of infection such as sore throat, pleuritic chest pain, diarrhea or burning with urination though it is notable that he had a Panda catheter placed over the past couple of days just to observe his urine output here in the hospital, so it is unlikely he would have dysuria. Ordinarily, he catheterizes himself because he has a neobladder and does this about every 2 hours. Otherwise, he gets what sounds like overflow incontinence. PAST MEDICAL HISTORY: 1. COPD, oxygen-dependent. 2. Acute kidney injury secondary to Bactrim superimposed on chronic renal insufficiency. 3. Bladder cancer with prostate cancer and formation of a neobladder six and a half years ago with self-cathing at home every 2 hours. 4. Diabetes mellitus. 5. History of DVT with IVC filter. 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 He was a significant cigarette smoker until 12 years ago when he quit. He drinks alcohol socially and lives with his in the local area. FAMILY HISTORY: Positive in multiple relatives for coronary artery disease. He denies any family history of TB including his parents or siblings. REVIEW OF SYSTEMS: Was done. The patient states he has no headache at this point and no visual change. No trouble swallowing. No sore throat. No stiff neck. He has a chronic cough, which is somewhat worse than usual over the past several days. It is productive of minimal amounts of whitish sputum. There is no hemoptysis or colored sputum at any time. No pleuritic chest pain. He is chronically short of breath and requires home oxygen and that may also be a little bit worse over the past week or so but not much, by his report. No nausea, vomiting or diarrhea. He usually catheterizes himself every 2 hours because he has a neobladder and requires frequent drainage but here in the hospital he has had a Panda so he has no dysuria, urgency, or frequency obviously. He notes that his legs and arms both are becoming progressively weaker, and that is the main reason he came back to the ED yesterday following his discharge four days prior was that he was just too weak to ambulate or do much of anything. He has minimal edema of his legs that has actually improved after his most recent discharge. He has had no skin breakdown or skin redness that he is aware of. Remainder of the review of systems is negative. PHYSICAL EXAMINATION: Reveals an afebrile gentleman, temperature 36.4, pulse 104, respiratory rate 20, blood pressure 106/52. He is saturating 95% on 3 L. Mental status is quite clear though the patient is short of breath and so it is hard for him to get out a history. He is lying reasonably comfortably in bed with 3 L nasal prongs going at this time and saturating right around 90. The head is without evidence of trauma or temporal wasting. Eyes without scleral or conjunctival abnormalities. Nose is normal. Oral cavity without thrush, pharyngitis, or hairy leukoplakia. His neck is supple and without adenopathy. His lungs are notable for crackles at both bases but relatively clear by and large. Cardiac tones are distant. Regular rate and rhythm. The abdomen is protuberant, soft and relatively nontender and without any organomegaly or obvious ascites. Penis and scrotum appear normal. Panda catheter is present. The neobladder is not external in any way and cannot be visualized. There is no suprapubic tenderness noted. Extremities are essentially unremarkable. There is minimal edema in the legs below the knees. The feet are well perfused and there is no skin breakdown on the lower extremities or the heels. No significant skin rashes noted. There is a dialysis catheter in the right groin which appears uninfected and was placed just yesterday for dialysis purposes. Patient is certainly neurologically intact. He can move everything though is quite weak secondary to his ongoing metabolic problems and respiratory insufficiency. LABORATORIES: Include white count 19,500, hematocrit 23, platelet count 261,000, creatinine 4.61. LFTs are notable for AST 16, ALT 111, alk phos 163. CRP is 0.5. Pro calcitonin 1.14 but that is, of course, in the setting of a creatinine of 4.61 so quite difficult to interpret. Urinalysis on this admission 6-10 white cells which is likely normal given his neobladder formation. Recent hepatitis C antibody negative. Cultures include from the last admission urine growing mixed jeffrey. On this admission, we have another urine growing mixed jeffrey. A rapid multiplex PCR study of the nasopharynx shows RSV. Blood cultures are negative. IMAGING: Includes a CT scan from late November which was done to look for cancer and it showed no evidence of recurrent or metastatic cancer. There was mild bilateral lung emphysema seen as well as evidence of a cystectomy and neobladder formation. A chest x-ray done on December 23 admission showed COPD without infiltrate. A chest CT done yesterday because of his cough showed no acute infiltrates, mild emphysema and coronary artery disease. Another chest x-ray done today shows possible developing left lower lobe infiltrate, pneumonia or atelectasis. IMPRESSION: I see little evidence that the patient has an acute bacterial superinfection. He clearly has respiratory syncytial virus (RSV) respiratory tract infection which was reported by the family and the patient during his last admission here which ended up last week. This undoubtedly contributed to some increased cough and an increase in his baseline shortness of breath, but I see no evidence at this point for any bacterial infection. The patient has had no fever at all and his high white blood count is explained by the fact he has been on prednisone 30 mg a day for the last two weeks. His slightly elevated pro calcitonin is consistent with his degree of renal insufficiency. He has had three imagings of his chest in the past 48 hours or so. The first chest x-ray was basically clear except for chronic obstructive pulmonary disease and yesterday a CT scan was basically clear except for chronic obstructive pulmonary disease. Today's x-ray, which I reviewed carefully myself, shows what is perhaps a very subtle left lower lobe infiltrate which is likely atelectasis and could in fact be due to the RSV itself. The patient does not look toxic in any way and he states that he feels he is somewhere close to his normal state of fragilely compensated health with respect to his chronic obstructive pulmonary disease and respiratory issues. RECOMMENDATIONS: 1. I would discontinue all systemic antibiotics 2. Will continue to closely follow this patient with you going forward. 3. Thank you very much for this consultation. THERESA
[2016-12-25] VITALS (14 sets, daily range): BP systolic 90–136; BP diastolic 43–81; PULSE 86–105; RESP 13–25; O2SAT 93–100
[2016-12-25] MEDS: Heparin 5,000 Unit/mL Inj SUBQ SCH ×3 (00:49→17:39)
[2016-12-25 06:05] LABS: Mean Corpuscular Hemoglobin 29.2 pg (27.0-35.0); Mean Corpuscular Volume 87.7 fL (81-100); Platelet Count 166 bil/L (150-400)
[2016-12-25 06:44] LABS: MONOCYTES % (AUTO) 5 % (4-12); NEUTROPHILS % (AUTO) 73 % (40-74)
[2016-12-25 06:45] LABS: BASOPHILS % (AUTO) 0 % (0-3); EOSINOPHILS % (AUTO) 0 % (0-5)
--- NOTE | 2016-12-25 07:55 | NUR ---
Critical Labs/BPs/Shakes/Dey Catheter Lab called at 0610 with H/H of 6.2/18.6 and a BUN of 148. The pt is being crossmatched now for 2 units of PRBCs. Pt's BP's have been either hypertensive or hypotensive throughout the night. The BP cuff did have to placed in different locations on the pt's body to ensure that the BP readings were correct. Pt was very jerky and shaky throughout the fast food shift lead and says that is his current baseline. Irrigated pt's dey catheter and removed a large amount of mucous from the bladder that had very small blood clots in with the mucous. Once the dey catheter was irrigated the dey catheter was able to continue to drain to gravity.
[2016-12-25] MEDS: Albuterol-Ipratropium 3 mL Inhalation Solution NEB SCH ×4 (08:00→20:04)
[2016-12-25] MEDS: Insulin Human REGular 300 Unit/3 mL Inj SUBQ SCH ×4 (09:15→22:34)
[2016-12-25] MEDS ORDERED: 0.9% Sodium Chloride 250 ML ONE (09:30)
--- NOTE | 2016-12-25 10:25 | PROG NOTE ---
[address] [address] PROGRESS NOTE PATIENT: ANGEL SOLIS I : 1940 MR#: [id number] ADMIT: 12/23/2016 JOB ID: [id number] DATE: 12/25/2016 INFECTIOUS DISEASE FOLLOWUP NOTE: REASON FOR FOLLOWUP: RSV pneumonitis, leukocytosis and questionable bacterial superinfection. INTERVAL HISTORY: Overnight, the patient reports he has actually been feeling better. He denies fevers, chills, or sweats. He has no sore throat. He continues with a dry cough as before. No abdominal pain. He is currently receiving hemodialysis through the right groin catheter without difficulty, though his O2 sat monitor does not fit and it keeps showing wild fluctuations in his O2 sats from the 70s to the 90s. PHYSICAL EXAMINATION: Reveals a comfortable gentleman lying supine in bed being dialyzed. His temperature is 36.7, pulse 80, respiratory rate 18, blood pressure 110/57. He is saturating well on 3 L. He speaks in full sentences, is in no acute distress, alert and oriented. Oral cavity, no thrush or pharyngitis. Lungs notable for a few crackles at the bases. Regular rate and rhythm on the cardiac rhythm. His abdomen is soft and nontender. Right groin dialysis line in good position and functioning through dialysis. LABORATORIES: White count has again bumped, now 25,800. Diff is almost normal with 1% metamyelocytes and 1% myelocytes. Note that he was on 40 mg of prednisone for two weeks up through and including yesterday which may have contributed to this elevated white count. His procalcitonin is 1.14 but that is in the setting of today's creatinine, which is 4.65, and today's BUN of 148. His ALT is 74. Alk phos has dropped to normal 124 from yesterday's 163. Urinalysis has had 6-10 white cells. Cultures included a respiratory viral PCR panel positive for RSV. Blood cultures have been negative, and urine grew mixed jeffrey. IMAGING: Includes yesterday's chest x-ray that shows questionable left-sided infiltrate. I reviewed that film and was not overly impressed by the minimal infiltrate or atelectasis at the left base. IMPRESSION: Though I also continue to be concerned about a bacterial superinfection, I see no indication for broad-spectrum antibiotics at this point. The patient believes his cough and shortness of breath are actually improving, and this would be consistent with the natural history of respiratory syncytial virus pulmonary infection. The patient has had no fever, and his procalcitonin is consistent with his renal insufficiency. His three chest x-rays over the past 72 hours all look relatively clear, except the most recent which might show very subtle left lower lobe infiltrate but this could, in fact, be respiratory syncytial virus rather than a bacterial process. His rising white count is of concern but I suspect this is due to two weeks of aggressive prednisone use and his renal failure perhaps rather than a bacterial process. The decision to withhold the broad-spectrum antibiotics is not without some trepidation, but this patient has suffered greatly in the recent past due to the aggressive use of antibiotics for probable urinary tract infections, and I think if we can hold off on antibiotics until we have some clarity, it may be a better option in this patient. RECOMMENDATIONS: 1. Will continue to watch the patient off antibiotics. 2. Will continue to follow his temperature curve, physical exam, white count and procalcitonins going forward.
--- NOTE | 2016-12-25 10:59 | PCM.PNMED ---
Subjective Date of Service Dec 25, 2016 Subjective Patient is more alert and interactive today. He states that he feels better but is remains quite weak. Of concern is that his hemoglobin is dropped to 6.2 this morning. He denies any chest pain, shortness of breath, or vomiting. This morning his sodium is 134, potassium 5.4, chloride 99, CO2 is 17, creatinine 148 and 4.65 respectively. Exam Vital Signs Vital Sign - Last Date Time Temp Pulse Resp B/P Pulse Ox O2 Delivery O2 Flow Rate FiO2 12/25/16 10:21 104 12/25/16 09:00 36.4 13 109/43 93 Nasal Cannula 3.00 Intake and Output 12/24/16 12/24/16 12/25/16 Cumulative From/Thru 15:00 23:00 07:00 12/23/16 11:04 - 12/25/16 06:56 Intake Total 223 ml 599 ml 2124 ml Output Total 0 ml 550 ml 2475 ml Balance 0 ml 223 ml 49 ml -351 ml Intake Oral 500 ml 500 ml IV Total 223 ml 99 ml 1624 ml Output Urine Total 550 ml 2475 ml Ultrafiltrate 0 ml 0 ml # Bowel Movements 0 Exam Sclerae are pale. Lungs showed scattered rhonchi. Heart rate is tachycardic. Abdomen is soft with diminished bowel sounds. There is some mild right lower and right upper quadrant tenderness to palpation but no rebound or guarding was noted. Extremities show any evidence of any edema. Lab and Diagnostics Result Diagram: 12/25/16 0537 12/25/16 0537 X-Rays, CTs and MRIs PROCEDURE: X-RAY CHEST ONE VIEW, PORTABLE ([id number]) IMPRESSION: 1. Findings compatible with COPD redemonstrated without acute consolidation. Dictated by: Subhash Escalona M.D. on 12/23/2016 at 11:40 Approved by: Subhash Escalona M.D. on 12/23/2016 at 11:44 Date of Service: 12/24/16 1317 PROCEDURE: X-RAY CHEST ONE VIEW, PORTABLE ([id number]) IMPRESSION: 1. Possible developing left lower lobe pneumonia. Correlate clinically with short interval followup recommended. Dictated by: Jesus Alberto Morillo M.D. on 12/24/2016 at 13:43 Approved by: Jesus Alberto Morillo M.D. on 12/24/2016 at 13:45 Assessment & Plan Impression #1 acute on chronic kidney injury with acute tubular necrosis secondary to acute blood loss and acute interstitial nephritis. #2 acute anemia #3 metabolic acidosis Recommendations #1 patient was seen in the room today and he is being dialyzed for 3-1/2 hours on a revaclear dialyzer, 2 potassium bath, 40 bicarbonate, no heparin, and 2 units of packed red blood cells to be given and we will attempt to take 1-2 L of fluid off. I would strongly recommend a gastroenterology evaluation as I am concerned that he may be losing blood through his upper and lower GI tract. We will be dialyzing him again tomorrow. VTE Prophylaxis: Sub-Q Heparin (Unfractionated), SCDs, Other (the patient is on xarelto) VTE Mechanical Devices: Intermittant Pneumatic CD Resuscitation Status: CPR: Attempt Resuscitation Luis Mcintosh DO Dec 25, 2016 10:59
--- NOTE | 2016-12-25 11:58 | NUR ---
Dialysis note Second HD tx. 3.5 hrs. 1600ml net UF removed. 1.5 U PRBC's transfused during tx, second unit finished per primary RN. Pt tolerated transfusion/see DTR for complete vitals. Pt tolerated UF and tx well today. No c/o pain/VSS thru tx/No SOB. Femoral dsg c/d/i/ dwelled with 1000/1 U heparin and secured to thigh.
--- NOTE | 2016-12-25 13:24 | NUR ---
Sacral open area Pt had an open area on sacrum that was jose armando and blanchable. Area had been documented on in the past but no wound consult ordered. I ordered one and applied a mepilex along with Q2-Q4 turns started. Will continue to monitor.
[2016-12-25] MEDS ORDERED: Polyethylene Glycol (PEG) 17 Gm Powder PO PRN (14:05)
[2016-12-25] MEDS ORDERED: Alum-Mag Hydrox-Simeth 30 mL Suspension PO PRN (14:05)
--- NOTE | 2016-12-25 14:43 | NUR ---
Wound Wound evaluation order received, Pt is a 76 yo male admitted 12/23 for weakness and cough, pt had previously been admitted to hospital on 12/13 then discharged 12/19. Pleasant male lying on a P500 FELIPE bed, Panda catheter in place. Sacrum has a 3 cm L x 2.5 cm W stage 2 pressure injury, draining minimal serous fluid, it appears neither infected or indurated. It is recommended that a mepilex dressing be kept in place to protect and promote healing, can be changed q 48 hrs. Also recommend frequent repositioning and to avoid lying on his back for now.
--- NOTE | 2016-12-25 15:21 | NUR ---
NUTRITION ASSESSMENT Assess: Pt is a 76 yo male admitted w/ increased weakness and RASTA w/ subacute kidney failure. Pt recently admitted to hospital for RASTA. Nephrology consulted. Femoral catheter placed for emergent dialysis. Pt received dialysis today, w/ plan to dialyze again tomorrow. Potential aspiration noted in ER. Altered texture diet recommended per ST evaluation d/t generalized weakness and missing teeth. ST continuing to follow. Stage II pressure injury on sacrum noted per WC. PMHx: Cholecystectomy, appendectomy, ORIF right fibula, HLD, HTN, DM, Sinus congestion/cataracts, PE/DVT postop anticoagulation therapy since 2013, COPD, Stage III Bladder Cancer, recurrent UTIs, Colonoscopy w/ removal of tubular adenoma transverse colon LABS: K 5.4, CO2 17, BUN 148, Data Modeling Architect 4.65, Gluc 245, Ca 7.7, ALT 76, Alb 2.7, Procalcitonin 1.14 MEDICATIONS: Insulin, Morphine, Lipitor CURRENT DIET: Pureed w/ NTL per ST recommendation no PO recorded yet. GI symptoms/stool: 0 BM recorded SKIN: Daniel 15 Stage II pressure injury per WC 12/25 ANTHROPOMETRICS: Current Wt: 123.6 kg BMI: 44.0 kg/m2 IBW: 63.8 kg ABW: 78.8 kg Admit Wt: 119.1 kg ESTIMATED NEEDS: COPD, BMI>40, Cancer, RASTA w/ dialysis, Stage II pressure injury Calories: 4924-8147 kcal/day (25-35 kcal/kg ABW) Protein: 100-120 g/day (1.2-1.5 g/kg ABW) NUTRITION DIAGNOSIS: 1) Increased nutrient needs related to comorbidities as evidenced by COPD, Stage III Bladder Cancer, Stage II Pressure Injury, RASTA w/ subacute kidney failure requiring dialysis. 2) Altered nutrition related lab values related to RASTA as evidenced by elevated BUN and Creatinine levels. INTERVENTION: 1) Will add NT Glucerna to B tray. 2) Will add Gelatein 20 to L&D trays. MONITOR/EVALUATE: PO intake, labs, wt, GI, nutrition status, POC. Will continue to monitor per high nutritional risk guidelines. Addendum: 12/25/16 at [address] Student documentation reviewed and I agree with the above assessment. Zack Daniel, MS, RDN, CD
--- NOTE | 2016-12-25 17:59 | NUR ---
Social Work Note: Attempted Assessment Data& Assessment: EMR reviewed. Thomas Whittaker is a 76 year old male admitted on 12/23/2016 for weakness. Pt has Medicare and for Life Supplement. Pt sees Garry Grullon MD for primary care. Pt lives in [place] with family and is independent at baseline. SW attempted to meet with pt at bedside for initial assessment. Pt was with RN at the time and not appropriate for SW to enter the room at that time. Pt has also not been medically appropriate for PT eval at this time. SW to follow up with pt regarding DC planning and follow for PT recommendations. SW to continue to follow. Plan: Anticipated discharge home via POV when medically ready. SW to follow up with pt regarding DC planning and follow for PT recommendations. SW to continue to follow. AYLIN Lopez
--- NOTE | 2016-12-25 20:13 | PCM.PNMED ---
Subjective Date of Service Dec 25, 2016 Subjective Mr. Whittaker is a 76-year-old male who has a history of O2 dependent COPD and was recently admitted at [facility] from December 13 to December 19 with acute kidney injury secondary to ATN due to Bactrim, he also has a history of a type IV RTA, history of stage IIIc bladder cancer and low-grade prostate cancer status post prostatectomy and bladder reconstruction. Today, he continues to have a non-productive cough. He denies chest pain, shortness of breath, and abdominal pain. He does not have nausea, vomiting, or diarrhea. Exam Vital Signs Vital Sign - Last Date Time Temp Pulse Resp B/P Pulse Ox O2 Delivery O2 Flow Rate FiO2 12/25/16 17:59 Supplement Oxygen 12/25/16 17:59 36.5 105 18 116/46 97 3.00 Intake and Output 12/24/16 12/24/16 12/25/16 Cumulative From/Thru 15:00 23:00 07:00 12/23/16 11:04 - 12/25/16 06:56 Intake Total 223 ml 599 ml 2124 ml Output Total 0 ml 550 ml 2475 ml Balance 0 ml 223 ml 49 ml -351 ml Intake Oral 500 ml 500 ml IV Total 223 ml 99 ml 1624 ml Output Urine Total 550 ml 2475 ml Ultrafiltrate 0 ml 0 ml # Bowel Movements 0 Exam General: Alert, Cooperative Head: Normal Eyes: PERRLA, EOMI, Scleral Anicteric Nose: Mucous Membr Moist/[place] Mouth: Mucous Membr Moist/[place] Neck: Supple Chest & Lungs: Decreased breath sounds bilaterally. Clear to auscultation, Other (right lateral chest wall tender to palpation) Cardiovascular: Regular Rate/Rhythm Pulses: NL carotid, radial, femoral, DP, PT Abdomen: Palpable midline mass. Non-tender, Non-distended, Normoactive bowel tones, Soft Extremities: No cyanosis/clubbing/edma bilat Neurological: Tremor. Grossly Neurologically Intact, Normal Speech IVs and Medications Medications Reviewed: Medications were reviewed in detail Lab and Diagnostics Result Diagram: 12/25/16 0537 12/25/1637 X-Rays, CTs and MRIs PROCEDURE: X-RAY CHEST ONE VIEW, PORTABLE IMPRESSION: 1. Findings compatible with COPD redemonstrated without acute consolidation. Approved by: Subhash Escalona M.D. on 12/23/2016 at 11:44 Date of Service: 12/24/16 1317 PROCEDURE: X-RAY CHEST ONE VIEW, PORTABLE IMPRESSION: 1. Possible developing left lower lobe pneumonia. Correlate clinically with short interval followup recommended. Approved by: Jesus Alberto Morillo M.D. on 12/24/2016 at 13:45 PROCEDURE: US ABDOMEN IMPRESSION: 1. Echogenic liver. Finding typically represents fatty infiltration; however, finding is nonspecific and correlation with clinical and laboratory findings is recommended to exclude other etiologies including hepatic cirrhosis. 2. Status post cholecystectomy. 3. Nonvisualization of the abdominal aorta and the iliac vasculature secondary to bowel gas. 4. Renal cysts. Approved by: Claudette Morgan MD, PhD on 12/14/2016 at 12:38 Cardiac Echo Impressions Echocardiogram Report Interpretation Summary The left ventricular cavity is small and underfilled. The left ventricle is hyperdynamic. The ejection fraction is estimated to be >80%. The echo findings are consistent with moderate dynamic left ventricular intracavitary obstruction. Consider aggressive IV hydration. The right ventricle grossly appears normal in size with probable normal systolic function. Pulmonary artery pressures cannot be estimated because of the lack of a measurable TR jet velocity. The left atrium grossly appears normal in size. The right atrium grossly appears normal in size. There is no significant valvular heart disease. The aortic root is mildly dilated. The ascending aorta is mildly enlarged. There is a trivial pericardial effusion noted. There is an anterior echo-free space consistent with a fat pad. Reading Physician: PM Assessment & Plan 76-year-old male with history of O2 dependent COPD and was recently admitted at [facility] and discharged on 12/20/16 with acute kidney injury secondary to ATN due to Bactrim, also has a history of a type IV RTA induced, history of stage IIIc bladder cancer and low-grade prostate cancer status post prostatectomy and bladder reconstruction.Since discharge he has been having increasing weakness finds it difficult to get out of bed and stand up. Family reports possible episode of aspirating on food the night prior to presentation but has been having cough and generalized malaise before that as well. 1. Sepsis, acute, present on admission. Active. -On admission WBC 18.9 and heart rate 103 bpm, and likely source of infection pneumonia or urinary tract infection. Chest x-ray on 12/24/16 showed possible developing lower lobe pneumonia. UA showed trace bacteria, positive leukocyte esterase, and 6-10 WBC. -Patient is RSV positive, which is likely cause of the left lower lobe infiltrate. -Urine culture grew mixed jeffrey. -Elevated WBC could be secondary to recent antibiotic use and elevated procalcitonin may be related to current RASTA -Infectious disease consulted and following. His time and recommendations are appreciated. -Holding antibiotics at this time and will continue to monitor vital signs and pt's signs and symptoms. 2. Possible recurrent aspiration pneumonitis, acute, present on admission. Active. - Possibly related to RSV infection, aspiration pneumonia with reported possible witness aspiration during initial H&P for admission to the hospital, or HCAP given recent hospitalization. - Lactic acid within normal limits - Speech/swallow evaluation pending - Continue to monitor WBC, temperature, and procalcitonin - Consider interval chest x-ray in the next 1-2 days - See #1 above 3. Acute kidney injury on top of chronic kidney failure (stage 3), present on admission with associated azotemia and hyperkalemia. Active. - Likely secondary to acute blood loss and AIN - Abdominal ultrasound on 12/14/16 showed bilateral renal cysts - Pt underwent emergent dialysis yesterday and dialysis today - Nephrology consulted and following. Their time and recommendations are appreciated. 4. Acute on chronic anemia, present on admission. Worsening. - Initially Hgb 9/HCT 27.6%, today Hgb 6.2/HCT 18.6% - No sign of active bleeding at this time - Patient received 2 units of crossed and matched PRBCs today and Hgb increased to 7.2 - Hold heparin subQ - Stool occult blood and peripheral smear pending - Consider GI consult in the morning to look for source of bleeding 5. Purulent urethral drainage, acute, present on admission. Active - UA showed trace bacteria, positive leukocyte esterase, and 6-10 WBC but urine culture grew mixed jeffrey. - Urethral swab to culture the drainage tomorrow morning 6. Elevated liver enzymes - Initial ALT 167, alk phos 217, today ALT is 76 and alk phos within normal limits - PT/PTT within normal limits - Prior abdominal ultrasound on 12/14/16 showed fatty infiltration; however, finding is nonspecific - Continue to monitor 7. Increasing weakness, acute, present on admission - May be due to some dehydration and worsening renal function. - Respiratory PCR also positive for RSV - further management as noted above and below 8. Hyperkalemia, acute, present on admission - post several rounds of Kayexalate - dialysis as noted above 9. Abdominal mass, chronic, present on admission. - Patient has history of abdominal aortic aneurysm. 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 Hyperglycemia in this patient with type II diabetes (DM2, uncontrolled), acute, present on admission - continue with sliding scale - follow 11. DVT prophylaxis: - Per notes by Dr. Pompa: "In 2009 he had a perioperative DVT. Was placed on Coumadin, then had significant bleeding issues in the surgical bed and the Coumadin was discontinued and he had an IVC filter since then that was never removed. ... 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 ... He is on Xarelto. 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 The V/ Q scan showed intermediate risk category and he had an elevated D-dimer, but because of his kidney function, a CT angio was deferred. Therefore, he has been empirically placed on Xarelto since September 2014 ." - Stop Xarelto given RASTA/subacute kidney injury - Hold SC heparin for now due to above anemia 12. Chest pain. acute. present on admission. resolved. - right sided and reproducible with palpation - likely musculoskeletal - initial troponin negative x 2 but then later elevated but in context of acute renal failure and anemia - continue supportive care and follow 13. History of COPD with possible acute exacerbation - no significant wheezing on exam - continue with oxygen - Neb treatment standing and as needed 14. Acute RSV infection - supportive care and droplet precaution 15. Acute hypotension. present on admission. improving. - possible acute sepsis vs volume depletion vs cardiogenic etiology - echocardiogram shows EF >80% as described above - see #1 and #4 above 16. Acute on chronic lumbago - continue with supportive care Goals of care - full code VTE Prophylaxis: Sub-Q Heparin (Unfractionated), SCDs VTE Mechanical Devices: Intermittant Pneumatic CD Resuscitation Status: CPR: Attempt Resuscitation Time spent 30 minutes Attending Statement Patient was seen and examined with house staff. Agree with all attached documentation. Belia Coleman DO Dec 25, 2016 20:13 Chavez Collier MD Dec 26, 2016 15:15
[2016-12-25] MEDS: Insulin GLARgine 100 Unit/mL Syringe SUBQ SCH (22:30)
[2016-12-25] MEDS: Famotidine Inj 20 MG in IV Premix 1 EACH IV SCH (22:30)
[2016-12-26] VITALS (11 sets, daily range): BP systolic 109–144; BP diastolic 43–70; PULSE 85–104; RESP 14–23; O2SAT 83–99
--- NOTE | 2016-12-26 05:11 | NUR ---
Dey Irrigation / Skin Q6H dey irrigation ongoing; mucous threads upon extraction with irrigation; dey otherwise draining to gravity. Pt denies any pain, dyspnea, or nausea this shift. 2L NC with SpO2 of 97%. Q2H turns implemented, Mepilex to sacrum C/D/I. Heels floated. VSS. Tele SR 90s with AVBI.
[2016-12-26 05:29] LABS: Mean Corpuscular Hemoglobin 30.3 pg (27.0-35.0); Mean Corpuscular Volume 88.5 fL (81-100); Platelet Count 124 bil/L (150-400)
[2016-12-26 06:06] LABS: BASOPHILS % (AUTO) 0 % (0-3); EOSINOPHILS % (AUTO) 0 % (0-5); MONOCYTES % (AUTO) 8 % (4-12); NEUTROPHILS % (AUTO) 85 % (40-74)
[2016-12-26] MEDS: Insulin Human REGular 300 Unit/3 mL Inj SUBQ SCH ×4 (07:30→21:38)
[2016-12-26] MEDS: Albuterol-Ipratropium 3 mL Inhalation Solution NEB SCH ×4 (09:27→21:08)
--- NOTE | 2016-12-26 09:34 | DRSVH ---
PROCEDURE: US AORTA RETROPERITONEAL LIMITED INDICATIONS: RASTA, hx of AAA with palpable midline mass TECHNIQUE: Real time scanning was performed of the aorta and iliac arteries, with image documentatio n. COMPARISON: [facility], CT, CT CHEST ABD PELVIS WO CON, 10/20/2015, 12:15. [facility], CT, CT CHEST ABD PELVIS WO CON, 12/06/2016, 10:51. FINDINGS: Aorta: Proximal aortic diameter measures 2.6 cm. Mid-aorta demonstrates mild fusiform dilation senthil uring 3.6 cm AP x 4.0 cm transverse. Distal aortic diameter is 2.2 cm. Iliac arteries: Right common iliac artery measures 1.4 cm. Left common iliac artery measures 1.3 cm . IMPRESSION: 1. Mild fusiform aneurysm of mid aorta measuring up to 3.6 x 4.0 cm. Recommend followup ultrasound in 12 months. Dictated by: Jose De Jesus Velarde M.D. on 12/26/2016 at 9:29 Approved by: Jose De Jesus Velarde M.D. on 12/26/2016 at 9:32
--- NOTE | 2016-12-26 10:06 | PCM.PNMED ---
Subjective Date of Service Dec 26, 2016 Subjective Patient's had some improvement in his renal function along with his dialysis. Yesterday he had 1150 and urine output this morning is regarding at 1100 out. She states he feels considerably better and denies any chest pain, shortness of breath, or nausea or vomiting. Morning his sodium is 134, potassium 4.2, chloride 96, bicarbonate 25, P endocrine were 86 and 3.32 respectively. Exam Vital Signs Vital Sign - Last Date Time Temp Pulse Resp B/P Pulse Ox O2 Delivery O2 Flow Rate FiO2 12/26/16 09:32 36.8 87 17 121/43 97 Nasal Cannula 2.00 Intake and Output 12/25/16 12/25/16 12/26/16 Cumulative From/Thru 15:00 23:00 07:00 12/23/16 11:04 - 12/26/16 06:36 Intake Total 805 ml 600 ml 1250 ml 4779 ml Output Total 1600 ml 600 ml 1100 ml 5775 ml Balance -795 ml 0 ml 150 ml -996 ml Intake Oral 600 ml 1200 ml 2300 ml IV Total 130 ml 50 ml 1804 ml Packed Cells 675 ml 675 ml Output Urine Total 600 ml 1100 ml 4175 ml Ultrafiltrate 1600 ml 1600 ml # Bowel Movements 0 Exam HEENT examinations once again remarkable for pale sclera. The patient is considerably more alert today. Lungs showed a few scattered rhonchi but otherwise were clear. Heart was regular and rhythmical with a soft systolic murmur. Abdomen distended without any tenderness, rebound, guarding, or masses noted. Showed some mild edema Lab and Diagnostics Result Diagram: 12/26/16 0510 12/26/16 0510 X-Rays, CTs and MRIs PROCEDURE: X-RAY CHEST ONE VIEW, PORTABLE IMPRESSION: 1. Findings compatible with COPD redemonstrated without acute consolidation. Approved by: Subhash Escalona M.D. on 12/23/2016 at 11:44 Date of Service: 12/24/16 1317 PROCEDURE: X-RAY CHEST ONE VIEW, PORTABLE IMPRESSION: 1. Possible developing left lower lobe pneumonia. Correlate clinically with short interval followup recommended. Approved by: Jesus Alberto Morillo M.D. on 12/24/2016 at 13:45 PROCEDURE: US ABDOMEN IMPRESSION: 1. Echogenic liver. Finding typically represents fatty infiltration; however, finding is nonspecific and correlation with clinical and laboratory findings is recommended to exclude other etiologies including hepatic cirrhosis. 2. Status post cholecystectomy. 3. Nonvisualization of the abdominal aorta and the iliac vasculature secondary to bowel gas. 4. Renal cysts. Approved by: Claudette Morgan MD, PhD on 12/14/2016 at 12:38 Cardiac Echo Impressions Echocardiogram Report Interpretation Summary The left ventricular cavity is small and underfilled. The left ventricle is hyperdynamic. The ejection fraction is estimated to be >80%. The echo findings are consistent with moderate dynamic left ventricular intracavitary obstruction. Consider aggressive IV hydration. The right ventricle grossly appears normal in size with probable normal systolic function. Pulmonary artery pressures cannot be estimated because of the lack of a measurable TR jet velocity. The left atrium grossly appears normal in size. The right atrium grossly appears normal in size. There is no significant valvular heart disease. The aortic root is mildly dilated. The ascending aorta is mildly enlarged. There is a trivial pericardial effusion noted. There is an anterior echo-free space consistent with a fat pad. Reading Physician: PM Assessment & Plan - echocardiogram shows EF >80% as described above - see #1 and #4 above 16. Acute on chronic lumbago - continue with supportive care Goals of care - full code Impression #1 acute kidney injury/acute tubular necrosis which is resolving number anemia which is multifactorial #3 hypertension with hypertensive heart disease and hypertensive nephrosclerosis. Recommendation #1 the patient be dialyzed today for 3-1/2 hours on a 2K bath and we will not take any fluid off today. I will also have the dialysis catheter pulled after his treatment. VTE Prophylaxis: Sub-Q Heparin (Unfractionated), SCDs VTE Mechanical Devices: Intermittant Pneumatic CD Resuscitation Status: CPR: Attempt Resuscitation Luis Mcintosh DO Dec 26, 2016 10:06
--- NOTE | 2016-12-26 11:24 | NUR ---
Social Work: Initial Assessment D: Per EMR review, pt is a 76 year old male admitted for Weakness. Pt is Medicare with for [employer]; Pt has no LTC insurance but is 70 percent service [facility] with [facility]. PCP is Garry Grullon MD. NOK is Citlalli Whittaker edgardo, . Advanced directives completed and current. Readmit score is moderate, 4/8. ELASTIC ATTACHER COVERSTITCH met with pt and at bedside. Sw role explained and contact information provided. See initial assessment. Pt is a readmit and was discharged last week home with his and no sw needs. Pt lives at home with spouse and has been using a walker and cane since his last admission. Pt's states pt has been very weak and that she would like physical therapy to work with the pt as soon as possible. Pt is currently with a port placed for dialysis and on bedrest. MD will order PT once port is d/c'd. Upon review of nephrology note, pt's port may be removed today. ST is also following this pt and currently on pureed, nectar thick with 1:1 feeding due to delayed swallow reflexes. ELASTIC ATTACHER COVERSTITCH reviewed possible Home Health options and provide HH Choice List. Pt's would like to see how pt ambulates before making any decision about HH. A: Pt who was previously I but reporting a decreased LOF. P: Evolving; ELASTIC ATTACHER COVERSTITCH to follow up with RN and PT about pt's mobility needs once port is discontinued and assist with dcp. AYLIN Rothman
--- NOTE | 2016-12-26 11:54 | PROG NOTE ---
[address] [address] PROGRESS NOTE PATIENT: ANGEL SOLIS I : 1940 MR#: [id number] ADMIT: 12/23/2016 JOB ID: [id number] DATE: 12/26/2016 INFECTIOUS DISEASE FOLLOW UP NOTE: REASON FOR FOLLOW UP: RSV respiratory tract infection. INTERVAL HISTORY: Overnight, the patient reports he has been feeling reasonably well. He denies any fevers, chills or sweats. He has no sore throat. No trouble swallowing. No cough, shortness of breath or chest pain. He has had no GI symptoms. PHYSICAL EXAMINATION: Reveals a comfortable man, temperature 36.8, and he is continuing to be afebrile. Pulse 87, respiratory rate 17, blood pressure 121/43, saturating well on 2 L. His mental status is clear. His eyes without conjunctival abnormality. Oral cavity without thrush or pharyngitis. Lungs quite clear anteriorly. Cardiac tones without new murmur. Abdomen benign. LABORATORIES: Include white count 16,900, which is gradually coming down from 26,000 previously. He has got 85% segs and 4% nucleated red cells. His creatinine is 3.32. BUN has come down from 207 to 86 with dialysis. ALT is improving, now 57. His albumin 2.6. Procalcitonin is 0.57 which is likely normal in view of the degree of renal insufficiency. Urinalysis 6-10 white cells. Respiratory viral PCR was positive for RSV. Blood cultures are negative. Urine was mixed. Recall that our last chest x-ray showed a subtle left-sided infiltrate which may be atelectasis or developing pneumonia. A CT scan done just prior to that though on the showed no infiltrates, just some mild emphysema. IMPRESSION: This patient has a RSV infection to be sure, but I see no evidence for superimposed bacterial process or significant aspiration pneumonia. His rising white count of a couple days ago was likely due to steroids which have now been stopped and his white count is starting to fall. I see no indication for antibiotics or additional culturing at this point. RECOMMENDATIONS: 1. No antibiotics. 2. I continue to watch his temperature curve, and physical examination with perhaps an every other day white blood count to make sure it continues to drift lower. 3. At some point, he could use a repeat chest x-ray but I really do not see the indication to do that emergently as his respiratory status, if anything, seems to be better. 4. ID will go ahead and sign off as there are no active ID issues at this point. Thank you for the consult.
--- NOTE | 2016-12-26 12:37 | NUR ---
AM Metoprolol Withheld this am 25mg Metoprolol due to pt possibly being dialysis this am. Dialysis was pushed back a few, by this time it was almost noon. BP and HR have been uncontrol. Dialysis to be done early afternoon. Will inform MD about holding Metoprolol and will continue to monitor.
--- NOTE | 2016-12-26 15:00 | NUR ---
OFF UNIT Pt off unit to [facility] [place] at 1500. Report given to Tete ROGER at bedside. Family aware and knows pt will be back around 1845.
--- NOTE | 2016-12-26 18:40 | PCM.PNMED ---
Subjective Date of Service Dec 26, 2016 Subjective Mr. Whittaker is a 76-year-old male who has a history of O2 dependent COPD and was recently admitted at [facility] from December 13 to December 19 with acute kidney injury secondary to ATN due to Bactrim, he also has a history of a type IV RTA, history of stage IIIc bladder cancer and low-grade prostate cancer status post prostatectomy and bladder reconstruction. He feels "good" today and denies any fever, chills, or abdominal pain. He continues to have a cough. He does not have blood in his stools or dark, tarry stools, but it has been about 3 days since his last bowel movement. Exam Vital Signs Vital Sign - Last Date Time Temp Pulse Resp B/P Pulse Ox O2 Delivery O2 Flow Rate FiO2 12/26/16 17:00 90 14 Nasal Cannula 3.00 12/26/16 12:59 97 12/26/16 12:30 36.6 131/46 Intake and Output 12/25/16 12/25/16 12/26/16 Cumulative From/Thru 15:00 23:00 07:00 12/23/16 11:04 - 12/26/16 06:36 Intake Total 805 ml 600 ml 1250 ml 4779 ml Output Total 1600 ml 600 ml 1100 ml 5775 ml Balance -795 ml 0 ml 150 ml -996 ml Intake Oral 600 ml 1200 ml 2300 ml IV Total 130 ml 50 ml 1804 ml Packed Cells 675 ml 675 ml Output Urine Total 600 ml 1100 ml 4175 ml Ultrafiltrate 1600 ml 1600 ml # Bowel Movements 0 Exam General: Alert, Cooperative Head: Normal Eyes: PERRLA, EOMI, Scleral Anicteric Nose: Mucous Membr Moist/[place] Mouth: Mucous Membr Moist/[place] Neck: Supple Chest & Lungs: Decreased breath sounds bilaterally. Mild wheezing Cardiovascular: Regular Rate/Rhythm Pulses: Normal carotid, radial, femoral, DP, PT Abdomen: Palpable midline mass. Non-tender, Non-distended, Normoactive bowel tones, Soft Extremities: No cyanosis/clubbing/edma bilat Neurological: Tremor. Grossly Neurologically Intact, Normal Speech IVs and Medications Medications Reviewed: Medications were reviewed in detail Lab and Diagnostics Result Diagram: 12/26/16 0510 12/26/16 0510 X-Rays, CTs and MRIs PROCEDURE: X-RAY CHEST ONE VIEW, PORTABLE IMPRESSION: 1. Findings compatible with COPD redemonstrated without acute consolidation. Approved by: Subhash Escalona M.D. on 12/23/2016 at 11:44 Date of Service: 12/24/16 1317 PROCEDURE: X-RAY CHEST ONE VIEW, PORTABLE IMPRESSION: 1. Possible developing left lower lobe pneumonia. Correlate clinically with short interval followup recommended. Approved by: Jesus Alberto Morillo M.D. on 12/24/2016 at 13:45 PROCEDURE: US ABDOMEN IMPRESSION: 1. Echogenic liver. Finding typically represents fatty infiltration; however, finding is nonspecific and correlation with clinical and laboratory findings is recommended to exclude other etiologies including hepatic cirrhosis. 2. Status post cholecystectomy. 3. Nonvisualization of the abdominal aorta and the iliac vasculature secondary to bowel gas. 4. Renal cysts. Approved by: Claudette Morgan MD, PhD on 12/14/2016 at 12:38 Cardiac Echo Impressions Echocardiogram Report Interpretation Summary The left ventricular cavity is small and underfilled. The left ventricle is hyperdynamic. The ejection fraction is estimated to be >80%. The echo findings are consistent with moderate dynamic left ventricular intracavitary obstruction. Consider aggressive IV hydration. The right ventricle grossly appears normal in size with probable normal systolic function. Pulmonary artery pressures cannot be estimated because of the lack of a measurable TR jet velocity. The left atrium grossly appears normal in size. The right atrium grossly appears normal in size. There is no significant valvular heart disease. The aortic root is mildly dilated. The ascending aorta is mildly enlarged. There is a trivial pericardial effusion noted. There is an anterior echo-free space consistent with a fat pad. Reading Physician: PM Additional Diagnostics PROCEDURE: US AORTA RETROPERITONEAL LIMITED IMPRESSION: 1. Mild fusiform aneurysm of mid aorta measuring up to 3.6 x 4.0 cm. Recommend followup ultrasound in 12 months. Approved by: Jose De Jesus Velarde M.D. on 12/26/2016 at 9:32 Assessment & Plan 76-year-old male with history of O2 dependent COPD and was recently admitted at [facility] and discharged on 12/20/16 with acute kidney injury secondary to ATN due to Bactrim, also has a history of a type IV RTA induced, history of stage IIIc bladder cancer and low-grade prostate cancer status post prostatectomy and bladder reconstruction.Since discharge he has been having increasing weakness finds it difficult to get out of bed and stand up. Family reports possible episode of aspirating on food the night prior to presentation but has been having cough and generalized malaise before that as well. 1. Sepsis, acute, present on admission. Active and improved. -On admission WBC 18.9 and heart rate 103 bpm, and likely source of infection pneumonia or urinary tract infection. Chest x-ray on 12/24/16 showed possible developing lower lobe pneumonia. UA showed trace bacteria, positive leukocyte esterase, and 6-10 WBC. -Patient is RSV positive, which is likely cause of the left lower lobe infiltrate. -Urine culture grew mixed jeffrey. -Elevated WBC could be secondary to recent antibiotic use and elevated procalcitonin may be related to current RASTA -Infectious disease consulted and followed. His time and recommendations were appreciated. -Holding antibiotics at this time and will continue to monitor vital signs and pt's signs and symptoms. 2. Possible viral pneumonia, acute, present on admission. Active. - Most likely related to RSV infection. Less likely, aspiration pneumonia with reported possible witness aspiration during initial H&P for admission to the hospital or [facility] given recent hospitalization. - Lactic acid within normal limits - Continue to monitor WBC every other day. Monitor temperature and procalcitonin daily 3. Acute kidney injury on top of chronic kidney failure (stage 3), present on admission with associated azotemia and hyperkalemia. Active. - Likely secondary to acute blood loss and AIN - Abdominal ultrasound on 12/14/16 showed bilateral renal cysts and was unable to visualize aorta secondary to bowel gas. Aorta visualized on ultrasound today and not significant change in diameter of AAA. - Pt underwent dialysis for the past 2 days then cath removed . Will follow - Nephrology consulted and following. Their time and recommendations are appreciated. 4. Acute on chronic anemia, present on admission. Improving. - Initially Hgb 9/HCT 27.6%, today Hgb 7.4/HCT 21.6 - No sign of active bleeding at this time, no RBC fragments seen on smear - Patient received 2 units of crossed and matched PRBCs yesterday and Hgb increased to 7.2 - Hold heparin subQ for today until stool occult blood test is performed - Stool occult blood pending 5. Purulent urethral drainage, acute, present on admission. Active - UA showed trace bacteria, positive leukocyte esterase, and 6-10 WBC but urine culture grew mixed jeffrey. - Will perform a urethral swab to culture the drainage tomorrow if continues 6. Elevated liver enzymes - Initial ALT 167, alk phos 217, today ALT is 57 and alk phos within normal limits - PT/PTT within normal limits - Prior abdominal ultrasound on 12/14/16 showed fatty infiltration; however, finding is nonspecific - Continue to monitor, no change to plans. 7. Increasing weakness, acute, present on admission - May be due to some dehydration and worsening renal function. - Respiratory PCR also positive for RSV - further management as noted above and below 8. Hyperkalemia, acute, present on admission. Resolved. . - post several rounds of Kayexalate - dialysis as noted above 9. Abdominal mass, chronic, present on admission. Stable. - Patient has history of abdominal aortic aneurysm. 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 Hyperglycemia in this patient with type II diabetes (DM2, uncontrolled), acute, present on admission - continue with sliding scale and basal insulin - follow 11. DVT prophylaxis: - Per notes by Dr. Pompa: "In 2009 he had a perioperative DVT. Was placed on Coumadin, then had significant bleeding issues in the surgical bed and the Coumadin was discontinued and he had an IVC filter since then that was never removed. ... 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 ... He is on Xarelto. 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 The V/ Q scan showed intermediate risk category and he had an elevated D-dimer, but because of his kidney function, a CT angio was deferred. Therefore, he has been empirically placed on Xarelto since September 2014 ." - Stop Xarelto given RASTA/subacute kidney injury - Hold SC heparin for now due to above anemia 12. Chest pain. acute. present on admission. resolved. - right sided and reproducible with palpation - likely musculoskeletal - initial troponin negative x 2 but then later elevated but in context of acute renal failure and anemia - continue supportive care and follow, No further work up. 13. History of COPD with possible acute exacerbation - no significant wheezing on exam - continue with oxygen - Neb treatment standing and as needed 14. Acute hypotension. present on admission. improving. - possible acute sepsis vs volume depletion vs cardiogenic etiology - echocardiogram shows EF >80% as described above - see #1 and #4 above 16. Acute on chronic lumbago - continue with supportive care Goals of care - full code VTE Prophylaxis: SCDs VTE Mechanical Devices: Intermittant Pneumatic CD Resuscitation Status: CPR: Attempt Resuscitation Time spent 45 minutes Attending Statement Patient seen and examined with house staff. Agree with all attached documentation. Belia Coleman DO Dec 26, 2016 18:32 Chavez Collier MD Dec 28, 2016 07:28 Belia Coleman DO Dec 26, 2016 18:32
--- NOTE | 2016-12-26 18:44 | NUR ---
Report given to Lionel Gardner
--- NOTE | 2016-12-26 19:15 | NUR ---
Dialysis note: 3 1/2 hrs tx. Zero net UF. Right femoral catheter, dsg dry and intact. Pls see DTR for VS details. Qb 300-350 with frequent high arterial pressure alarms. No heparin given. O2 @ 2L via NC on. Tolerated treatment. Post tx, catheter dc'd as ordered. Exit site cleaned with chloraprep. Sutures removed. Catheter pulled out intact. Pressure applied for 15-20 min. Sureseal dgs applied, dry and intact. Report given to Scarlet Delgado RN. Stable at time of transfer.
[2016-12-26] MEDS: Insulin GLARgine 100 Unit/mL Syringe SUBQ SCH (21:34)
[2016-12-26] MEDS: Famotidine Inj 20 MG in IV Premix 1 EACH IV SCH (21:35)
[2016-12-27] VITALS (11 sets, daily range): BP systolic 107–122; BP diastolic 49–68; PULSE 85–100; RESP 14–20; O2SAT 83–97
--- NOTE | 2016-12-27 05:22 | NUR ---
Skin R groin femoral catheter site C/D/I to assessment; no tenderness or bleeding throughout shift. Q2H turns ongoing for pt, pt participatory in care. Dey irrigation ongoing Q6H with continued purulent discharge from head of penis; minimal mucous threads to irrigation, but moderate amounts to dey drainage bag with urinary output >600mls. VSS, tele SR 90s AVBI.
[2016-12-27] MEDS: Insulin Human REGular 300 Unit/3 mL Inj SUBQ SCH ×4 (07:30→22:28)
[2016-12-27] MEDS: Albuterol-Ipratropium 3 mL Inhalation Solution NEB SCH ×4 (07:36→22:26)
--- NOTE | 2016-12-27 11:58 | PCM.PNMED ---
Subjective Date of Service Dec 27, 2016 Subjective Mr. Whittaker continues to have significant improvement. He is continuing to show increasing strength and a better appetite. His blood pressures remain good and his intake and output from yesterday showed 2387 in and 20/100 in urine output. This morning he is already had 700 and urine output for the first 8 hours. The dialysis catheter was removed yesterday and I do not feel at this point he requires any further dialysis. He does have some increasing cough and audible rales which can be heard from the bedside without a stethoscope. Exam Vital Signs Vital Sign - Last Date Time Temp Pulse Resp B/P Pulse Ox O2 Delivery O2 Flow Rate FiO2 12/27/16 11:36 97 14 91 Nasal Cannula 3.00 12/27/16 08:06 36.8 114/62 Intake and Output 12/26/16 12/26/16 12/27/16 Cumulative From/Thru 15:00 23:00 07:00 12/23/16 11:04 - 12/27/16 06:55 Intake Total 1137 ml 850 ml 6766 ml Output Total 0 ml 1000 ml 750 ml 7525 ml Balance 0 ml 137 ml 100 ml -759 ml Intake Oral 1137 ml 800 ml 4237 ml IV Total 50 ml 1854 ml Packed Cells 675 ml Output Urine Total 1000 ml 750 ml 5925 ml Ultrafiltrate 0 ml 1600 ml # Bowel Movements 0 Exam Scleral remain pale. Lungs show diffuse end expiratory wheezes and rales in all lung gonzalez. Heart remains tachycardic. Abdomen is soft and mildly distended but no tenderness rebound guarding or masses were noted. Extremities did not show any evidence of any clubbing cyanosis or edema. Skin turgor is good and there is no evidence of any rashes. Lab and Diagnostics Result Diagram: 12/27/1642412/27/16424 X-Rays, CTs and MRIs PROCEDURE: X-RAY CHEST ONE VIEW, PORTABLE IMPRESSION: 1. Findings compatible with COPD redemonstrated without acute consolidation. Approved by: Subhash Escalona M.D. on 12/23/2016 at 11:44 Date of Service: 12/24/16 1317 PROCEDURE: X-RAY CHEST ONE VIEW, PORTABLE IMPRESSION: 1. Possible developing left lower lobe pneumonia. Correlate clinically with short interval followup recommended. Approved by: Jesus Alberto Morillo M.D. on 12/24/2016 at 13:45 PROCEDURE: US ABDOMEN IMPRESSION: 1. Echogenic liver. Finding typically represents fatty infiltration; however, finding is nonspecific and correlation with clinical and laboratory findings is recommended to exclude other etiologies including hepatic cirrhosis. 2. Status post cholecystectomy. 3. Nonvisualization of the abdominal aorta and the iliac vasculature secondary to bowel gas. 4. Renal cysts. Approved by: Claudette Morgan MD, PhD on 12/14/2016 at 12:38 Cardiac Echo Impressions Echocardiogram Report Interpretation Summary The left ventricular cavity is small and underfilled. The left ventricle is hyperdynamic. The ejection fraction is estimated to be >80%. The echo findings are consistent with moderate dynamic left ventricular intracavitary obstruction. Consider aggressive IV hydration. The right ventricle grossly appears normal in size with probable normal systolic function. Pulmonary artery pressures cannot be estimated because of the lack of a measurable TR jet velocity. The left atrium grossly appears normal in size. The right atrium grossly appears normal in size. There is no significant valvular heart disease. The aortic root is mildly dilated. The ascending aorta is mildly enlarged. There is a trivial pericardial effusion noted. There is an anterior echo-free space consistent with a fat pad. Reading Physician: PM Additional Diagnostics PROCEDURE: US AORTA RETROPERITONEAL LIMITED IMPRESSION: 1. Mild fusiform aneurysm of mid aorta measuring up to 3.6 x 4.0 cm. Recommend followup ultrasound in 12 months. Approved by: Jose De Jesus Velarde M.D. 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 Obviously we need to continue to follow his intake, output, and laboratory values. VTE Prophylaxis: SCDs VTE Mechanical Devices: Intermittant Pneumatic CD Resuscitation Status: CPR: Attempt Resuscitation Luis Mcintosh DO Dec 27, 2016 11:58
--- NOTE | 2016-12-27 12:03 | PCM.PNMED ---
Subjective Date of Service Dec 27, 2016 Subjective Mr. Whittaker is a 76-year-old male who has a history of O2 dependent COPD and was recently admitted at [facility] from December 13 to December 19 with acute kidney injury secondary to ATN due to Bactrim, he also has a history of a type IV RTA, history of stage IIIc bladder cancer and low-grade prostate cancer status post prostatectomy and bladder reconstruction. He continues to have a cough that was productive of clear sputum this morning. He denies chest pain and dyspnea. He reports chronic oxygen use of 2L at night and 3L during the day. He had a bowel movement this morning and it was dark, black stool. Exam Vital Signs Vital Sign - Last Date Time Temp Pulse Resp B/P Pulse Ox O2 Delivery O2 Flow Rate FiO2 12/27/16 11:36 97 14 91 Nasal Cannula 3.00 12/27/16 08:06 36.8 114/62 Intake and Output 12/26/16 12/26/16 12/27/16 Cumulative From/Thru 15:00 23:00 07:00 12/23/16 11:04 - 12/27/16 06:55 Intake Total 1137 ml 850 ml 6766 ml Output Total 0 ml 1000 ml 750 ml 7525 ml Balance 0 ml 137 ml 100 ml -759 ml Intake Oral 1137 ml 800 ml 4237 ml IV Total 50 ml 1854 ml Packed Cells 675 ml Output Urine Total 1000 ml 750 ml 5925 ml Ultrafiltrate 0 ml 1600 ml # Bowel Movements 0 Exam General: Alert, Cooperative Head: Normal Eyes: PERRLA, EOMI, Scleral Anicteric Nose: Mucous Membr Moist/[place] Mouth: Mucous Membr Moist/[place] Neck: Supple Chest & Lungs: Decreased breath sounds bilaterally. Mild wheezing Cardiovascular: Regular Rate/Rhythm Pulses: Normal carotid, radial, femoral, DP, PT Abdomen: Palpable midline mass. Non-tender, Non-distended, Normoactive bowel tones, Soft Extremities: No cyanosis/clubbing/edma bilat Neurological: Tremor. Grossly Neurologically Intact, Normal Speech Lab and Diagnostics Result Diagram: 12/27/1642412/27/16424 X-Rays, CTs and MRIs PROCEDURE: X-RAY CHEST ONE VIEW, PORTABLE IMPRESSION: 1. Findings compatible with COPD redemonstrated without acute consolidation. Approved by: Subhash Escalona M.D. on 12/23/2016 at 11:44 Date of Service: 12/24/16 1317 PROCEDURE: X-RAY CHEST ONE VIEW, PORTABLE IMPRESSION: 1. Possible developing left lower lobe pneumonia. Correlate clinically with short interval followup recommended. Approved by: Jesus Alberto Morillo M.D. on 12/24/2016 at 13:45 PROCEDURE: US ABDOMEN IMPRESSION: 1. Echogenic liver. Finding typically represents fatty infiltration; however, finding is nonspecific and correlation with clinical and laboratory findings is recommended to exclude other etiologies including hepatic cirrhosis. 2. Status post cholecystectomy. 3. Nonvisualization of the abdominal aorta and the iliac vasculature secondary to bowel gas. 4. Renal cysts. Approved by: Claudette Morgan MD, PhD on 12/14/2016 at 12:38 Cardiac Echo Impressions Echocardiogram Report Interpretation Summary The left ventricular cavity is small and underfilled. The left ventricle is hyperdynamic. The ejection fraction is estimated to be >80%. The echo findings are consistent with moderate dynamic left ventricular intracavitary obstruction. Consider aggressive IV hydration. The right ventricle grossly appears normal in size with probable normal systolic function. Pulmonary artery pressures cannot be estimated because of the lack of a measurable TR jet velocity. The left atrium grossly appears normal in size. The right atrium grossly appears normal in size. There is no significant valvular heart disease. The aortic root is mildly dilated. The ascending aorta is mildly enlarged. There is a trivial pericardial effusion noted. There is an anterior echo-free space consistent with a fat pad. Reading Physician: PM Additional Diagnostics PROCEDURE: US AORTA RETROPERITONEAL LIMITED IMPRESSION: 1. Mild fusiform aneurysm of mid aorta measuring up to 3.6 x 4.0 cm. Recommend followup ultrasound in 12 months. Approved by: Jose De Jesus Velarde M.D. on 12/26/2016 at 9:32 Assessment & Plan 76-year-old male with history of O2 dependent COPD and was recently admitted at [facility] and discharged on 12/20/16 with acute kidney injury secondary to ATN due to Bactrim, also has a history of a type IV RTA induced, history of stage IIIc bladder cancer and low-grade prostate cancer status post prostatectomy and bladder reconstruction.Since discharge he has been having increasing weakness finds it difficult to get out of bed and stand up. Family reports possible episode of aspirating on food the night prior to presentation but has been having cough and generalized malaise before that as well. 1. Sepsis, acute, present on admission. Active. -On admission WBC 18.9 and heart rate 103 bpm, and likely source of infection pneumonia or urinary tract infection. Chest x-ray on 12/24/16 showed possible developing lower lobe pneumonia. UA showed trace bacteria, positive leukocyte esterase, and 6-10 WBC. -Patient is RSV positive, which is likely cause of the left lower lobe infiltrate. -Urine culture grew mixed jeffrey. -Elevated WBC could be secondary to recent antibiotic use and elevated procalcitonin may be related to current RASTA -Infectious disease consulted and followed. His time and recommendations were appreciated. -Holding antibiotics at this time and will continue to monitor vital signs and pt's signs and symptoms. 2. Possible recurrent aspiration pneumonitis, acute, present on admission. Active. - Most likely related to RSV infection. Less likely, aspiration pneumonia with reported possible witness aspiration during initial H&P for admission to the hospital or [facility] given recent hospitalization. - Lactic acid within normal limits - Continue to monitor WBC every other day. Monitor temperature and procalcitonin daily - Consider interval chest x-ray if no improvement or worsening symptoms - See #1 above -Repeat speech evaluation today since patient now has his dentures in place -Sputum culture pending - Consider a repeat chest x-ray if continued productive cough, fever, increase in WBC 3. Acute kidney injury on top of chronic kidney failure (stage 3), present on admission with associated azotemia and hyperkalemia. Active. - Likely secondary to acute blood loss and AIN - Abdominal ultrasound on 12/14/16 showed bilateral renal cysts and was unable to visualize aorta secondary to bowel gas. Aorta visualized on ultrasound today and not significant change in diameter of AAA. - Pt underwent dialysis for the past 3 days - Nephrology consulted and following. Their time and recommendations are appreciated. - Will monitor pt's input and output and CMP and assess for need for IV fluids 4. Acute on chronic anemia, present on admission. Improving. - Initially Hgb 9/HCT 27.6%, today Hgb 7.4/HCT 21.6 - No sign of active bleeding at this time, no RBC fragments seen on smear - Patient received 2 units of crossed and matched PRBCs 2 days ago and Hgb stable at 7.1 and HCT 22.6 - Stool occult blood pending - Will give pt another unit of PRBCs tomorrow if HCT 21 or below 5. Purulent urethral drainage, acute, present on admission. Active - UA showed trace bacteria, positive leukocyte esterase, and 6-10 WBC but urine culture grew mixed jeffrey. - Culture pending 6. Elevated liver enzymes - Initial ALT 167, alk phos 217, today ALT is 57 and alk phos within normal limits - PT/PTT within normal limits - Prior abdominal ultrasound on 12/14/16 showed fatty infiltration; however, finding is nonspecific - Continue to monitor 7. Increasing weakness, acute, present on admission - May be due to some dehydration and worsening renal function. - Respiratory PCR also positive for RSV - further management as noted above and below - Physical therapy today - Patient can be out of bed as tolerated 8. Hyperkalemia, acute, present on admission. Improved. - post several rounds of Kayexalate - dialysis as noted above 9. Abdominal mass, chronic, present on admission. Stable. - Patient has history of abdominal aortic aneurysm. 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 Hyperglycemia in this patient with type II diabetes (DM2, uncontrolled), acute, present on admission - continue with sliding scale and basal insulin - follow 11. DVT prophylaxis: - Per notes by Dr. Pompa: "In 2009 he had a perioperative DVT. Was placed on Coumadin, then had significant bleeding issues in the surgical bed and the Coumadin was discontinued and he had an IVC filter since then that was never removed. ... 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 ... He is on Xarelto. 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 The V/ Q scan showed intermediate risk category and he had an elevated D-dimer, but because of his kidney function, a CT angio was deferred. Therefore, he has been empirically placed on Xarelto since September 2014 ." - Stop Xarelto given RASTA/subacute kidney injury - Resumed SC heparin because risk of PE 12. Chest pain. acute. present on admission. resolved. - right sided and reproducible with palpation - likely musculoskeletal - initial troponin negative x 2 but then later elevated but in context of acute renal failure and anemia - continue supportive care and follow 13. History of COPD with possible acute exacerbation - no significant wheezing on exam - continue with oxygen - Neb treatment standing and as needed 14. Acute RSV infection - supportive care and droplet precaution 15. Acute hypotension. present on admission. improving. - possible acute sepsis vs volume depletion vs cardiogenic etiology - echocardiogram shows EF >80% as described above - see #1 and #4 above 16. Acute on chronic lumbago - continue with supportive care Goals of care - full code VTE Prophylaxis: SCDs VTE Mechanical Devices: Intermittant Pneumatic CD Resuscitation Status: CPR: Attempt Resuscitation Time spent 40 minutes Attending Statement Patient seen and examined with house staff. Agree with all attached documentation. Belia Coleman DO Dec 27, 2016 12:02 Chavez Collier MD Dec 28, 2016 15:00
--- NOTE | 2016-12-27 13:56 | NUR ---
NUTRITION FOLLOW-UP Assess: Pt is a 76 yo male admitted w/ increased weakness and RASTA w/ subacute kidney failure. Pt recently admitted to hospital for RASTA. Nephrology following. Femoral catheter placed for emergent dialysis. Pt has been dialyzed for the last 3 days. Femoral catheter removed after dialysis on 12/26. PMHx: Cholecystectomy, appendectomy, ORIF right fibula, HLD, HTN, DM, Sinus congestion/cataracts, PE/DVT postop anticoagulation therapy since 2013, COPD, Stage III Bladder Cancer, recurrent UTIs, Colonoscopy w/ removal of tubular adenoma transverse colon LABS: BUN 40, Cr 2.02, Ca 7.0, Glu 153, Albumin 2.7 MEDICATIONS: Senna, Miralax CURRENT DIET: Pureed w/ NTL, PO 100% GI symptoms/stool: 0 BM recorded - BM regimen being given. SKIN: Daniel 18; Stage II pressure injury per WC 12/25 ANTHROPOMETRICS: Current Wt: 123.1 kg BMI: 43.8 kg/m2 IBW: 63.8 kg ABW: 78.2 kg Admit Wt: 119.1 kg ESTIMATED NEEDS: COPD, BMI>40, Cancer, RASTA, Stage II pressure injury Calories: 7355-9954 kcal/day (30-35 kcal/kg ABW) Protein: 80-95 g/day (1.0-1.2 g/kg ABW) NUTRITION DIAGNOSIS: 1) Increased nutrient needs related to comorbidities as evidenced by COPD, Stage III Bladder Cancer, Stage II Pressure Injury - PERSISTS 2) Altered nutrition related lab values related to RASTA as evidenced by elevated BUN and Creatinine levels.---IMPROVING INTERVENTION: 1) Will send Gelatein BID MONITOR/EVALUATE: PO intake, labs, wt, GI, nutrition status, POC. Will continue to monitor per high nutritional risk guidelines.
[2016-12-27] MEDS ORDERED: Calcium GLUCO 10% (mEq) Inj 9.3 MEQ in Dextrose 5% 100 ML IV ONE (15:45)
--- NOTE | 2016-12-27 16:41 | NUR ---
Re-Evaluation completed. Please go to "Notes" then click on "Assessments and Notes" (bottom left corner of screen). Then select appropriate discipline tab on top of screen.
[2016-12-27] MEDS: Heparin 5,000 Unit/mL Inj SUBQ SCH (17:43)
--- NOTE | 2016-12-27 19:13 | NUR ---
Skin/Bowel Patient alert and oriented x3 throughout shift, pleasant and cooperative. No reports of pain, no reports of n/v, patient had one extra large BM up 1PA to BSC today with aid, tolerated fair. Currently on 2-3LNC with SPO2 in mid to high 90s. Tolerating PO intake well. Right femoral site post dialysis cath removal dressing is c/d/i, no oozing or hematoma noted, patient reports no pain. Panda catheter irrigated x2, copious mucous threads. Penile drainage swab sent for culture per MD orders.
[2016-12-27] MEDS: Insulin GLARgine 100 Unit/mL Syringe SUBQ SCH (20:28)
[2016-12-28] VITALS (13 sets, daily range): BP systolic 102–127; BP diastolic 56–67; PULSE 75–98; RESP 16–24; O2SAT 93–98
[2016-12-28] MEDS: Heparin 5,000 Unit/mL Inj SUBQ SCH ×3 (01:33→16:36)
[2016-12-28 04:04] LABS: BASOPHILS % (AUTO) 0.1 % (0-3); EOSINOPHILS % (AUTO) 2.6 % (0-5); MONOCYTES % (AUTO) 8.1 % (4-12); Mean Corpuscular Hemoglobin 29.8 pg (27.0-35.0); Mean Corpuscular Volume 94.5 fL (81-100); NEUTROPHILS % (AUTO) 76.2 % (40-74); Platelet Count 139 bil/L (150-400)
[2016-12-28 04:40] LABS: Magnesium 1.5 mg/dL (1.6-2.6)
--- NOTE | 2016-12-28 05:03 | NUR ---
Dey Output/Sleep Patient continues to have dark yellow urine with copious mucous threads in his dey. Dey irrigated x2 to maintain patency. Patient sleeping heavily overnight; woke for 0430 vitals and stated that he "felt weak" and that he thought "they're going to transport me to the ER." Reminded patient that he is already in the hospital. Patient reoriented to situation. Continue to monitor.
[2016-12-28] MEDS: Albuterol-Ipratropium 3 mL Inhalation Solution NEB SCH ×5 (06:00→21:55)
[2016-12-28] MEDS: Insulin Human REGular 300 Unit/3 mL Inj SUBQ SCH ×4 (07:30→22:49)
--- NOTE | 2016-12-28 12:02 | PCM.PNMED ---
Subjective Date of Service Dec 28, 2016 Subjective Patient was again continues to improve. His intake and output from yesterday was 2264 in and 1400 out. The last 8 hours she has had called 100 in urine output. His blood pressures ranged between 101 20 range systolic. He states that he is feeling stronger and denies any chest pain, shortness of breath, cough or wheezing. This morning his hemoglobin is 7.0, sodium 134, potassium 4.0, chloride 97, bicarbonate 28, BUN and creatinine were 53 and 2.3 Exam Vital Signs Vital Sign - Last Date Time Temp Pulse Resp B/P Pulse Ox O2 Delivery O2 Flow Rate FiO2 12/28/16 11:47 36.8 86 20 107/66 95 Nasal Cannula 3.00 Intake and Output 12/27/16 12/27/16 12/28/16 Cumulative From/Thru 15:00 23:00 07:00 12/23/16 11:04 - 12/28/16 06:21 Intake Total 1415 ml 520 ml 8701 ml Output Total 650 ml 1200 ml 9375 ml Balance 765 ml -680 ml -674 ml Intake Oral 1299 ml 500 ml 6036 ml IV Total 116 ml 20 ml 1990 ml Packed Cells 675 ml Output Urine Total 650 ml 1200 ml 7775 ml Ultrafiltrate 1600 ml # Bowel Movements 0 0 Exam Patient remained stable but does not have any evidence of any conversational dyspnea or confusion. Neck is supple without adenopathy, thyromegaly, or distention. Examination of chest shows increased AP diameter and a few scattered rhonchi. Heart regular with soft systolic murmur. Abdomen soft without any tenderness or rebound guarding masses or hepatosplenomegaly. Extremities without any evidence of any clubbing, cyanosis, or edema. Lab and Diagnostics Result Diagram: 12/28/16 0340 12/28/16 0340 X-Rays, CTs and MRIs PROCEDURE: X-RAY CHEST ONE VIEW, PORTABLE IMPRESSION: 1. Findings compatible with COPD redemonstrated without acute consolidation. Approved by: Subhash Escalona M.D. on 12/23/2016 at 11:44 Date of Service: 12/24/16 1317 PROCEDURE: X-RAY CHEST ONE VIEW, PORTABLE IMPRESSION: 1. Possible developing left lower lobe pneumonia. Correlate clinically with short interval followup recommended. Approved by: Jesus Alberto Morillo M.D. on 12/24/2016 at 13:45 PROCEDURE: US ABDOMEN IMPRESSION: 1. Echogenic liver. Finding typically represents fatty infiltration; however, finding is nonspecific and correlation with clinical and laboratory findings is recommended to exclude other etiologies including hepatic cirrhosis. 2. Status post cholecystectomy. 3. Nonvisualization of the abdominal aorta and the iliac vasculature secondary to bowel gas. 4. Renal cysts. Approved by: Claudette Morgan MD, PhD on 12/14/2016 at 12:38 Cardiac Echo Impressions Echocardiogram Report Interpretation Summary The left ventricular cavity is small and underfilled. The left ventricle is hyperdynamic. The ejection fraction is estimated to be >80%. The echo findings are consistent with moderate dynamic left ventricular intracavitary obstruction. Consider aggressive IV hydration. The right ventricle grossly appears normal in size with probable normal systolic function. Pulmonary artery pressures cannot be estimated because of the lack of a measurable TR jet velocity. The left atrium grossly appears normal in size. The right atrium grossly appears normal in size. There is no significant valvular heart disease. The aortic root is mildly dilated. The ascending aorta is mildly enlarged. There is a trivial pericardial effusion noted. There is an anterior echo-free space consistent with a fat pad. Reading Physician: PM Additional Diagnostics PROCEDURE: US AORTA RETROPERITONEAL LIMITED IMPRESSION: 1. Mild fusiform aneurysm of mid aorta measuring up to 3.6 x 4.0 cm. Recommend followup ultrasound in 12 months. Approved by: Jose De Jesus Velarde M.D. on 12/26/2016 at 9:32 Assessment & Plan - no significant wheezing on exam - continue with oxygen - Neb treatment standing and as needed 14. Acute hypotension. present on admission. improving. - possible acute sepsis vs volume depletion vs cardiogenic etiology - echocardiogram shows EF >80% as described above - see #1 and #4 above 16. Acute on chronic lumbago - continue with supportive care Goals of care - full code Impression #1 resolving acute tubular necrosis and acute interstitial nephritis #2 anemia which appears to be multifactorial #3 chronic interstitial nephritis number for our baseline CT disease stage III/ Recommendations #1 of vertebral additional dose of Aranesp and check iron studies on him. VTE Prophylaxis: SCDs VTE Mechanical Devices: Intermittant Pneumatic CD Resuscitation Status: CPR: Attempt Resuscitation Luis Mcintosh DO Dec 28, 2016 12:02
[2016-12-28] MEDS ORDERED: Darbepoetin Alfa 60 mCg/0.3 mL Inj SUBQ ONE (12:05)
--- NOTE | 2016-12-28 12:26 | NUR ---
Verbal consent for [facility]; contact precautions in place. AYLIN Choudhury
--- NOTE | 2016-12-28 17:57 | NUR ---
Activity: P: Patient weak and not initiating activity or initiating getting out of bed. I: Encouraged activity, encouraged and assisted with getting out of bed for all meals. E: Patient compliant tolerated well, able to transfer with SBA using furniture. Patient worked with PT (see PTs notes). Only stays sitting for duration of meals. Will encourage to continue to sit for at least 30 minutes following meals or as tolerated. Bed lowered and locked position, call light within reach. Will continue to monitor.
--- NOTE | 2016-12-28 18:53 | PCM.PNMED ---
Subjective Date of Service Dec 28, 2016 Subjective Mr. Whittaker is a 76-year-old male who has a history of O2 dependent COPD and was recently admitted at [facility] from December 13 to December 19 with acute kidney injury secondary to ATN due to Bactrim, he also has a history of a type IV RTA, history of stage IIIc bladder cancer and low-grade prostate cancer status post prostatectomy and bladder reconstruction. His cough has improved this morning. He does not have fever, chills, chest pain or shortness of breath. He is eating and drinking well. He has not had a bowel movement his morning since yesterday morning. Exam Vital Signs Vital Sign - Last Date Time Temp Pulse Resp B/P Pulse Ox O2 Delivery O2 Flow Rate FiO2 12/28/16 14:18 80 16 95 Nasal Cannula 3.00 12/28/16 12:36 36.7 102/63 Intake and Output 12/27/16 12/27/16 12/28/16 Cumulative From/Thru 15:00 23:00 07:00 12/23/16 11:04 - 12/28/16 06:21 Intake Total 1415 ml 520 ml 8701 ml Output Total 650 ml 1200 ml 9375 ml Balance 765 ml -680 ml -674 ml Intake Oral 1299 ml 500 ml 6036 ml IV Total 116 ml 20 ml 1990 ml Packed Cells 675 ml Output Urine Total 650 ml 1200 ml 7775 ml Ultrafiltrate 1600 ml # Bowel Movements 0 0 Exam General: Alert, Cooperative Head: Normal Eyes: PERRLA, EOMI, Scleral Anicteric Nose: Mucous Membr Moist/[place] Mouth: Mucous Membr Moist/[place] Neck: Supple Chest & Lungs: Decreased breath sounds bilaterally. Clear to auscultation bilaterally. No rales, rhonchi, or wheezing Cardiovascular: Regular Rate/Rhythm Pulses: Normal carotid, radial, femoral, DP, PT Abdomen: Palpable midline mass. Non-tender, Non-distended, Normoactive bowel tones, Soft Extremities: No cyanosis/clubbing/edma bilat Neurological: Tremor. Grossly Neurologically Intact, Normal Speech IVs and Medications Medications Reviewed: Medications were reviewed in detail Lab and Diagnostics Result Diagram: 12/28/16 03412/28/16 034 X-Rays, CTs and MRIs PROCEDURE: X-RAY CHEST ONE VIEW, PORTABLE IMPRESSION: 1. Findings compatible with COPD redemonstrated without acute consolidation. Approved by: Subhash Escalona M.D. on 12/23/2016 at 11:44 Date of Service: 12/24/16 1317 PROCEDURE: X-RAY CHEST ONE VIEW, PORTABLE IMPRESSION: 1. Possible developing left lower lobe pneumonia. Correlate clinically with short interval followup recommended. Approved by: Jesus Alberto Morillo M.D. on 12/24/2016 at 13:45 PROCEDURE: US ABDOMEN IMPRESSION: 1. Echogenic liver. Finding typically represents fatty infiltration; however, finding is nonspecific and correlation with clinical and laboratory findings is recommended to exclude other etiologies including hepatic cirrhosis. 2. Status post cholecystectomy. 3. Nonvisualization of the abdominal aorta and the iliac vasculature secondary to bowel gas. 4. Renal cysts. Approved by: Claudette Morgan MD, PhD on 12/14/2016 at 12:38 Cardiac Echo Impressions Echocardiogram Report Interpretation Summary The left ventricular cavity is small and underfilled. The left ventricle is hyperdynamic. The ejection fraction is estimated to be >80%. The echo findings are consistent with moderate dynamic left ventricular intracavitary obstruction. Consider aggressive IV hydration. The right ventricle grossly appears normal in size with probable normal systolic function. Pulmonary artery pressures cannot be estimated because of the lack of a measurable TR jet velocity. The left atrium grossly appears normal in size. The right atrium grossly appears normal in size. There is no significant valvular heart disease. The aortic root is mildly dilated. The ascending aorta is mildly enlarged. There is a trivial pericardial effusion noted. There is an anterior echo-free space consistent with a fat pad. Reading Physician: PM Additional Diagnostics PROCEDURE: US AORTA RETROPERITONEAL LIMITED IMPRESSION: 1. Mild fusiform aneurysm of mid aorta measuring up to 3.6 x 4.0 cm. Recommend followup ultrasound in 12 months. Approved by: Jose De Jesus Velarde M.D. on 12/26/2016 at 9:32 Assessment & Plan 76-year-old male with history of O2 dependent COPD and was recently admitted at [facility] and discharged on 12/20/16 with acute kidney injury secondary to ATN due to Bactrim, also has a history of a type IV RTA induced, history of stage IIIc bladder cancer and low-grade prostate cancer status post prostatectomy and bladder reconstruction.Since discharge he has been having increasing weakness finds it difficult to get out of bed and stand up. Family reports possible episode of aspirating on food the night prior to presentation but has been having cough and generalized malaise before that as well. 1. Acute kidney injury on top of chronic kidney failure (stage 3), present on admission with associated azotemia and hyperkalemia. Active. - Likely secondary to acute blood loss and AIN - Abdominal ultrasound on 12/14/16 showed bilateral renal cysts and was unable to visualize aorta secondary to bowel gas. Aorta visualized on ultrasound today and not significant change in diameter of AAA. - Pt underwent dialysis for the past 3 days - Nephrology consulted and following. Their time and recommendations are appreciated. - Will monitor pt's input and output and CMP and assess for need for IV fluids 2. Acute on chronic anemia, present on admission. Improving. - Initially Hgb 9/HCT 27.6%, today Hgb 7.4/HCT 21.6 - No sign of active bleeding at this time, no RBC fragments seen on smear - Patient received 2 units of crossed and matched PRBCs 2 days ago and Hgb stable at 7.1 and HCT 22.6 - Stool occult blood pending. Discussed with lab, initial stool occult blood test was canceled by them, and the second order for stool occult blood was not done because the stool was used for a C. difficile PCR. Awaiting patient to have another bowel movement. -Consider giving pt another unit of PRBCs tomorrow based on hemoglobin and hematocrit -Iron panel pending and patient to receive Aranesp injection 3. Sepsis, acute, present on admission. Improving. -On admission WBC 18.9 and heart rate 103 bpm, and likely source of infection pneumonia or urinary tract infection. Chest x-ray on 12/24/16 showed possible developing lower lobe pneumonia. UA showed trace bacteria, positive leukocyte esterase, and 6-10 WBC. -Patient is RSV positive -Urine culture grew mixed jeffrey. -Elevated WBC, which is improving, could be secondary to recent antibiotic use and elevated procalcitonin may be related to current RASTA -Infectious disease consulted and followed. His time and recommendations were appreciated. -Holding antibiotics at this time and will continue to monitor vital signs and pt's signs and symptoms. -Urethral culture shows preliminary growth of gram-negative rods 4. URI, acute, present on admission. Active. - Most likely related to RSV infection. Less likely, aspiration pneumonia with reported possible witness aspiration during initial H&P for admission to the hospital or [facility] given recent hospitalization. - Lactic acid within normal limits - Continue to monitor WBC every other day. Monitor temperature and procalcitonin daily - See #3 above -Repeat speech evaluation yesterday and advanced patient's diet -Sputum culture pending - Consider a repeat chest x-ray if continued productive cough, fever, increase in WBC 5. Purulent urethral drainage, acute, present on admission. Active - UA showed trace bacteria, positive leukocyte esterase, and 6-10 WBC but urine culture grew mixed jeffrey. - Culture pending shows preliminary growth of gram-negative rods 6. Elevated liver enzymes - Initial ALT 167, alk phos 217, today ALT is 54 and alk phos within normal limits - PT/PTT within normal limits - Prior abdominal ultrasound on 12/14/16 showed fatty infiltration; however, finding is nonspecific - Continue to monitor 7. Increasing weakness, acute, present on admission - May be due to some dehydration and worsening renal function. - Respiratory PCR also positive for RSV - further management as noted above and below - Physical therapy - Patient can be out of bed as tolerated 8. Hyperkalemia, acute, present on admission. Improved. - dialysis as noted above 9. Abdominal mass, chronic, present on admission. Stable. - Patient has history of abdominal aortic aneurysm. 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 Hyperglycemia in this patient with type II diabetes (DM2, uncontrolled), acute, present on admission - continue with sliding scale and basal insulin - follow 11. DVT prophylaxis: - Per notes by Dr. Pompa: "In 2009 he had a perioperative DVT. Was placed on Coumadin, then had significant bleeding issues in the surgical bed and the Coumadin was discontinued and he had an IVC filter since then that was never removed. ... 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 ... He is on Xarelto. 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 The V/ Q scan showed intermediate risk category and he had an elevated D-dimer, but because of his kidney function, a CT angio was deferred. Therefore, he has been empirically placed on Xarelto since September 2014 ." - Stop Xarelto given RASTA/subacute kidney injury - Resumed SC heparin because risk of PE 12. Chest pain. acute. present on admission. resolved. - right sided and reproducible with palpation - likely musculoskeletal - initial troponin negative x 2 but then later elevated but in context of acute renal failure and anemia - continue supportive care and follow 13. History of COPD with possible acute exacerbation - no significant wheezing on exam - continue with oxygen - Neb treatment standing and as needed 14. Acute RSV infection - supportive care and droplet precaution 15. Acute hypotension. present on admission. improving. - possible acute sepsis vs volume depletion vs cardiogenic etiology - echocardiogram shows EF >80% as described above - see #1 and #4 above 16. Acute on chronic lumbago - continue with supportive care VTE Prophylaxis: SCDs VTE Mechanical Devices: Intermittant Pneumatic CD Resuscitation Status: CPR: Attempt Resuscitation Time spent 35 min Attending Statement Patient seen and examined with house staff. Agree with all attached documentation. Belia Coleman DO Dec 28, 2016 16:30 Chavez Collier MD Dec 29, 2016 07:42
[2016-12-28] MEDS: Insulin GLARgine 100 Unit/mL Syringe SUBQ SCH (20:56)
[2016-12-29] VITALS (11 sets, daily range): BP systolic 105–124; BP diastolic 60–70; PULSE 62–95; RESP 16–22; O2SAT 95–99
[2016-12-29] MEDS: Heparin 5,000 Unit/mL Inj SUBQ SCH ×3 (00:50→16:13)
[2016-12-29] MEDS ORDERED: diphenhydrAMINE 25 mg Capsule PO ONE (01:15)
--- NOTE | 2016-12-29 03:28 | NUR ---
Activity/Insomnia Patient up in chair at beginning of shift. 1 person assist to transfer back to bed; patient did become more short of breath when transferring. Patient able to boost himself in bed and turns when desired; encouraged patient to assist with his own bed mobility. Patient reporting difficulty sleeping. Awake at every check until 129. Doctor paged. Patient given 25mg benadryl PO per new orders. Continue to monitor.
[2016-12-29 04:42] LABS: Unsaturated Iron Binding 181.4 ug/dL
[2016-12-29] MEDS: Insulin Human REGular 300 Unit/3 mL Inj SUBQ SCH ×4 (07:30→22:35)
[2016-12-29 08:19] LABS: BASOPHILS % (AUTO) 0.2 % (0-3); EOSINOPHILS % (AUTO) 2.4 % (0-5); MONOCYTES % (AUTO) 5.7 % (4-12); Mean Corpuscular Hemoglobin 29.3 pg (27.0-35.0); Mean Corpuscular Volume 93.8 fL (81-100); NEUTROPHILS % (AUTO) 77.6 % (40-74); Platelet Count 203 bil/L (150-400)
[2016-12-29] MEDS: Albuterol-Ipratropium 3 mL Inhalation Solution NEB SCH ×3 (09:15→17:24)
[2016-12-29] MEDS ORDERED: Darbepoetin Alfa 60 mCg/0.3 mL Inj SUBQ ONE (10:25)
[2016-12-29] MEDS ORDERED: Iron Sucrose Inj 200 MG in 0.9% Sodium Chloride 100 ML IV ONE (10:25)
--- NOTE | 2016-12-29 10:25 | PCM.PNMED ---
Subjective Date of Service Dec 29, 2016 Subjective Patient's continuing to improve however he is in a diuretic phase of his acute kidney injury. He states that he is feeling stronger and is able to ambulate with assistance. His appetite is good and he denies any chest pain, shortness of breath, vomiting or diarrhea. His blood pressures range in between the 100 and 120 systolic. His intake for last 24 hours were 966 in and 3700 out with 1580 out already today. His hemoglobin was 7.5, sodium is 135, potassium 4.4, chloride 97, bicarbonate 25, BUN and creatinine were 64 and 2.5 for which is up from 2.3 yesterday. His transferrin saturation is 12%. Exam Vital Signs Vital Sign - Last Date Time Temp Pulse Resp B/P Pulse Ox O2 Delivery O2 Flow Rate FiO2 12/29/16 10:05 62 12/29/16 09:15 16 95 Nasal Cannula 3.00 12/29/16 07:50 36.7 105/66 Intake and Output 12/28/16 12/28/16 12/29/16 Cumulative From/Thru 15:00 23:00 07:00 12/23/16 11:04 - 12/29/16 06:38 Intake Total 446 ml 220 ml 9367 ml Output Total 2500 ml 1580 ml 16341 ml Balance -2054 ml -1360 ml -4088 ml Intake Oral 436 ml 200 ml 6672 ml IV Total 10 ml 20 ml 2020 ml Packed Cells 675 ml Output Urine Total 2500 ml 1580 ml 70124 ml Ultrafiltrate 1600 ml # Bowel Movements 0 0 Exam HEENT examination is remarkable for pallor sclera. Neck is supple without adenopathy thyromegaly or jugular venous distention. Lungs are clear to auscultation. Abdomen is soft systolic murmur. Abdomen was mildly distended with some diffuse tympany to percussion. There is no tenderness rebound guarding masses or hepatosplenomegaly. Extremities show any evidence of any clubbing, cyanosis, or edema. Skin turgor is diminished. Lab and Diagnostics Result Diagram: 12/29/16 0800 12/29/16 0350 X-Rays, CTs and MRIs PROCEDURE: X-RAY CHEST ONE VIEW, PORTABLE IMPRESSION: 1. Findings compatible with COPD redemonstrated without acute consolidation. Approved by: Subhash Escalona M.D. on 12/23/2016 at 11:44 Date of Service: 12/24/16 1317 PROCEDURE: X-RAY CHEST ONE VIEW, PORTABLE IMPRESSION: 1. Possible developing left lower lobe pneumonia. Correlate clinically with short interval followup recommended. Approved by: Jesus Alberto Morillo M.D. on 12/24/2016 at 13:45 PROCEDURE: US ABDOMEN IMPRESSION: 1. Echogenic liver. Finding typically represents fatty infiltration; however, finding is nonspecific and correlation with clinical and laboratory findings is recommended to exclude other etiologies including hepatic cirrhosis. 2. Status post cholecystectomy. 3. Nonvisualization of the abdominal aorta and the iliac vasculature secondary to bowel gas. 4. Renal cysts. Approved by: Claudette Morgan MD, PhD on 12/14/2016 at 12:38 Cardiac Echo Impressions Echocardiogram Report Interpretation Summary The left ventricular cavity is small and underfilled. The left ventricle is hyperdynamic. The ejection fraction is estimated to be >80%. The echo findings are consistent with moderate dynamic left ventricular intracavitary obstruction. Consider aggressive IV hydration. The right ventricle grossly appears normal in size with probable normal systolic function. Pulmonary artery pressures cannot be estimated because of the lack of a measurable TR jet velocity. The left atrium grossly appears normal in size. The right atrium grossly appears normal in size. There is no significant valvular heart disease. The aortic root is mildly dilated. The ascending aorta is mildly enlarged. There is a trivial pericardial effusion noted. There is an anterior echo-free space consistent with a fat pad. Reading Physician: PM Additional Diagnostics PROCEDURE: US AORTA RETROPERITONEAL LIMITED IMPRESSION: 1. Mild fusiform aneurysm of mid aorta measuring up to 3.6 x 4.0 cm. Recommend followup ultrasound in 12 months. Approved by: Jose De Jesus Velarde M.D. on 12/26/2016 at 9:32 Assessment & Plan Impression #1 acute tubular necrosis/acute interstitial nephritis which appears to be resolving and he is in a diuretic phase. #2 mild intravascular volume depletion #3 anemia secondary to blood loss, chronic kidney disease, and iron deficiency. Recommendations #1 to start him on a maintenance IV of half normal saline at 75 mmol per hour and give him several doses of intravenous iron. We need to continue to follow his intake and output along with his lab. VTE Prophylaxis: SCDs VTE Mechanical Devices: Intermittant Pneumatic CD Resuscitation Status: CPR: Attempt Resuscitation Luis Mcintosh DO Dec 29, 2016 10:25
--- NOTE | 2016-12-29 19:22 | NUR ---
Panda irrigation/ Cough Pt Panda irrigated twice today, per pt procedure needs to be done q6hrs. Urine containing mucous treads. Pt having weak coughs through the day, given suctions to help clear sputum. Instructed pt on use. Pt verbalized understanding.
[2016-12-29] MEDS: Insulin GLARgine 100 Unit/mL Syringe SUBQ SCH (19:51)
[2016-12-30] VITALS (12 sets, daily range): BP systolic 93–116; BP diastolic 53–68; PULSE 80–102; RESP 16–20; O2SAT 95–98
[2016-12-30] MEDS: Albuterol-Ipratropium 3 mL Inhalation Solution NEB SCH ×5 (00:03→20:12)
[2016-12-30] MEDS: Heparin 5,000 Unit/mL Inj SUBQ SCH ×3 (00:47→17:19)
[2016-12-30 03:56] LABS: Magnesium 1.4 mg/dL (1.6-2.6); Phosphorus 3.5 mg/dL (2.5-4.9)
--- NOTE | 2016-12-30 04:13 | NUR ---
Insomnia/Catheter Irrigation Patient reporting difficulty sleeping. Provider paged; Melatonin 10mg given per provider orders. Patient asleep for approximately 2 hours. Patient states he "slept well" and feels good. Panda irrigated to maintain patency. Patient producing dark yellow urine with thick mucous threads. Continue to monitor.
[2016-12-30] MEDS: Insulin Human REGular 300 Unit/3 mL Inj SUBQ SCH ×4 (07:30→21:51)
[2016-12-30 08:36] LABS: BASOPHILS % (AUTO) 0.1 % (0-3); EOSINOPHILS % (AUTO) 2.8 % (0-5); MONOCYTES % (AUTO) 7.2 % (4-12); Mean Corpuscular Hemoglobin 30.2 pg (27.0-35.0); Mean Corpuscular Volume 95.3 fL (81-100); NEUTROPHILS % (AUTO) 75.7 % (40-74); Platelet Count 210 bil/L (150-400)
[2016-12-30] MEDS ORDERED: Magnesium Sulf 2 Gm/50mL Water 2 GM in IV Premix 1 EACH IV ONE (12:00)
--- NOTE | 2016-12-30 12:07 | PCM.PNMED ---
Subjective Date of Service Dec 30, 2016 Subjective serum creatinine has trended down. good appetite. no fever/chills. good UOP. Exam Vital Signs Vital Sign - Last Date Time Temp Pulse Resp B/P Pulse Ox O2 Delivery O2 Flow Rate FiO2 12/30/16 11:36 88 20 97 Nasal Cannula 2.00 12/30/16 08:16 36.7 106/53 Intake and Output 12/29/16 12/29/16 12/30/16 Cumulative From/Thru 15:00 23:00 07:00 12/23/16 11:04 - 12/30/16 06:15 Intake Total 1258 ml 684 ml 90160 ml Output Total 1900 ml 1200 ml 58511 ml Balance -642 ml -516 ml -5246 ml Intake Oral 805 ml 200 ml 7677 ml IV Total 453 ml 484 ml 2957 ml Packed Cells 675 ml Output Urine Total 1900 ml 1200 ml 72604 ml Ultrafiltrate 1600 ml # Bowel Movements 0 Exam General appearance: Awake, alert, oriented x3, in no acute distress. HEENT: Mild pallor. No jaundice. No JVD. No lymphadenopathy. No thyroid enlargement. Atraumatic. Moist mucous membranes. Heart: Regular rhythm. Normal S1 and S2. No murmurs, rubs, or gallops. Lungs: Clear to auscultation bilaterally. No wheezing. No rhonchi. Abdomen: Soft, active bowel sounds. Nontender, nondistended. No hepatosplenomegaly. Extremities: No edema, cyanosis, or clubbing of the fingers. : dey cath in place with yellowish urine. Lab and Diagnostics Result Diagram: 12/30/16 0300 12/30/16 0300 X-Rays, CTs and MRIs PROCEDURE: X-RAY CHEST ONE VIEW, PORTABLE IMPRESSION: 1. Findings compatible with COPD redemonstrated without acute consolidation. Approved by: Subhash Escalona M.D. on 12/23/2016 at 11:44 Date of Service: 12/24/16 1317 PROCEDURE: X-RAY CHEST ONE VIEW, PORTABLE IMPRESSION: 1. Possible developing left lower lobe pneumonia. Correlate clinically with short interval followup recommended. Approved by: Jesus Alberto Morillo M.D. on 12/24/2016 at 13:45 PROCEDURE: US ABDOMEN IMPRESSION: 1. Echogenic liver. Finding typically represents fatty infiltration; however, finding is nonspecific and correlation with clinical and laboratory findings is recommended to exclude other etiologies including hepatic cirrhosis. 2. Status post cholecystectomy. 3. Nonvisualization of the abdominal aorta and the iliac vasculature secondary to bowel gas. 4. Renal cysts. Approved by: Claudette Morgan MD, PhD on 12/14/2016 at 12:38 Cardiac Echo Impressions Echocardiogram Report Interpretation Summary The left ventricular cavity is small and underfilled. The left ventricle is hyperdynamic. The ejection fraction is estimated to be >80%. The echo findings are consistent with moderate dynamic left ventricular intracavitary obstruction. Consider aggressive IV hydration. The right ventricle grossly appears normal in size with probable normal systolic function. Pulmonary artery pressures cannot be estimated because of the lack of a measurable TR jet velocity. The left atrium grossly appears normal in size. The right atrium grossly appears normal in size. There is no significant valvular heart disease. The aortic root is mildly dilated. The ascending aorta is mildly enlarged. There is a trivial pericardial effusion noted. There is an anterior echo-free space consistent with a fat pad. Reading Physician: PM Additional Diagnostics PROCEDURE: US AORTA RETROPERITONEAL LIMITED IMPRESSION: 1. Mild fusiform aneurysm of mid aorta measuring up to 3.6 x 4.0 cm. Recommend followup ultrasound in 12 months. Approved by: Jose De Jesus Velarde M.D. on 12/26/2016 at 9:32 Assessment & Plan 1. RASTA. - multifactorial: ATN/AIN and obstruction. - s/p HD. - now in recovery phase. 2. Hypomagnesemia. 3. Acute on chronic anemia. - s/p aranesp injection on 12/29. - s/p IV venofer. 4. Stage IIIc bladder cancer and low-grade prostate cancer status post prostatectomy and bladder reconstruction. 5. Recurrent UTIs. 6. COPD. Plan: Continue 1/2 NS 100 ml/hr, MgSO4 2 gm IVPB. repeat BMP, CBC and Mg in am. will give another IV venofer in am. VTE Prophylaxis: SCDs VTE Mechanical Devices: Intermittant Pneumatic CD Resuscitation Status: CPR: Attempt Resuscitation Felisha Rob MD Dec 30, 2016 12:00
--- NOTE | 2016-12-30 16:09 | NUR ---
Social Work Note: Continued Discharge Planning Data& Assessment: EMR Reviewed. Pt walked 75-100ft with PT and PT is recommending SNF for rehab at time of discharge. SW met with pt at bedside to discuss discharge planning, SW role explained. SW provided SNF/HH list for preferences. Pt explained his mother and his uncle both in a SNF and he will never be agreeable to going to a SNF. SW discussed HH services for pt to receive PT in order to get back to his baseline mobility and strength. Pt also declined HH services. Pt explained he will go to outpt PT if he feels like he needs it. Pt left HH/SNF list in case pt changes his mind. Pt denies any other needs at this time. SW to continue to follow if any needs arise. Plan: Anticipated discharge home via POV when medically ready. Pt is declining SNF and HH against PT recommendations. Pt denies any other needs at this time. SW to continue to follow if any needs arise. AYLIN Lopez
--- NOTE | 2016-12-30 18:41 | NUR ---
Anxiety Pt crying at the end of the shift. Stating that he is really anxious about what will happen to him in the next couple days and does not want to go to a detention. RN stayed at patient side and listen attentively and had a discussion with what he wanted to do instead. Pt stating he would rather go home with home health. Pt made aware that RN will talk to social service in AM. Pt agreeable and verbalized understanding. Report given to oncoming RN.
--- NOTE | 2016-12-30 19:58 | PCM.PNMED ---
Subjective Date of Service Dec 30, 2016 Subjective Mr. Whittaker is a 76-year-old male who has a history of O2 dependent COPD and was recently admitted at [facility] from December 13 to December 19 with acute kidney injury secondary to ATN due to Bactrim, he also has a history of a type IV RTA, history of stage IIIc bladder cancer and low-grade prostate cancer status post prostatectomy and bladder reconstruction. His cough has continued to improved this morning. He does not have chest pain or shortness of breath. He continues to feel weak and not back to his baseline strength. Exam Vital Signs Vital Sign - Last Date Time Temp Pulse Resp B/P Pulse Ox O2 Delivery O2 Flow Rate FiO2 12/30/16 17:22 36.6 99 110/68 97 Nasal Cannula 2.00 12/30/16 16:18 20 Intake and Output 12/29/16 12/29/16 12/30/16 Cumulative From/Thru 15:00 23:00 07:00 12/23/16 11:04 - 12/30/16 06:15 Intake Total 1258 ml 684 ml 70956 ml Output Total 1900 ml 1200 ml 27733 ml Balance -642 ml -516 ml -5246 ml Intake Oral 805 ml 200 ml 7677 ml IV Total 453 ml 484 ml 2957 ml Packed Cells 675 ml Output Urine Total 1900 ml 1200 ml 47597 ml Ultrafiltrate 1600 ml # Bowel Movements 0 Exam General: Alert, Cooperative Head: Normal Eyes: PERRLA, EOMI, Scleral Anicteric Nose: Mucous Membr Moist/[place] Mouth: Mucous Membr Moist/[place] Neck: Supple Chest & Lungs: Decreased breath sounds bilaterally. Clear to auscultation bilaterally. No rales, rhonchi, or wheezing Cardiovascular: Regular Rate/Rhythm Pulses: Normal carotid, radial, femoral, DP, PT Abdomen: Palpable midline mass. Non-tender, Non-distended, Normoactive bowel tones, Soft Extremities: No cyanosis/clubbing/edma bilat Neurological: Grossly Neurologically Intact, Normal Speech IVs and Medications Medications Reviewed: Medications were reviewed in detail Lab and Diagnostics Result Diagram: 12/30/16 0300 12/30/16 0300 X-Rays, CTs and MRIs PROCEDURE: X-RAY CHEST ONE VIEW, PORTABLE IMPRESSION: 1. Findings compatible with COPD redemonstrated without acute consolidation. Approved by: Subhash Escalona M.D. on 12/23/2016 at 11:44 Date of Service: 12/24/16 1317 PROCEDURE: X-RAY CHEST ONE VIEW, PORTABLE IMPRESSION: 1. Possible developing left lower lobe pneumonia. Correlate clinically with short interval followup recommended. Approved by: Jesus Alberto Morillo M.D. on 12/24/2016 at 13:45 PROCEDURE: US ABDOMEN IMPRESSION: 1. Echogenic liver. Finding typically represents fatty infiltration; however, finding is nonspecific and correlation with clinical and laboratory findings is recommended to exclude other etiologies including hepatic cirrhosis. 2. Status post cholecystectomy. 3. Nonvisualization of the abdominal aorta and the iliac vasculature secondary to bowel gas. 4. Renal cysts. Approved by: Claudette Morgan MD, PhD on 12/14/2016 at 12:38 Cardiac Echo Impressions Echocardiogram Report Interpretation Summary The left ventricular cavity is small and underfilled. The left ventricle is hyperdynamic. The ejection fraction is estimated to be >80%. The echo findings are consistent with moderate dynamic left ventricular intracavitary obstruction. Consider aggressive IV hydration. The right ventricle grossly appears normal in size with probable normal systolic function. Pulmonary artery pressures cannot be estimated because of the lack of a measurable TR jet velocity. The left atrium grossly appears normal in size. The right atrium grossly appears normal in size. There is no significant valvular heart disease. The aortic root is mildly dilated. The ascending aorta is mildly enlarged. There is a trivial pericardial effusion noted. There is an anterior echo-free space consistent with a fat pad. Reading Physician: PM Additional Diagnostics PROCEDURE: US AORTA RETROPERITONEAL LIMITED IMPRESSION: 1. Mild fusiform aneurysm of mid aorta measuring up to 3.6 x 4.0 cm. Recommend followup ultrasound in 12 months. Approved by: Jose De Jesus Velarde M.D. on 12/26/2016 at 9:32 Assessment & Plan 76-year-old male with history of O2 dependent COPD and was recently admitted at [facility] and discharged on 12/20/16 with acute kidney injury secondary to ATN due to Bactrim, also has a history of a type IV RTA induced, history of stage IIIc bladder cancer and low-grade prostate cancer status post prostatectomy and bladder reconstruction.Since discharge he has been having increasing weakness finds it difficult to get out of bed and stand up. Family reports possible episode of aspirating on food the night prior to presentation but has been having cough and generalized malaise before that as well. 1. Acute kidney injury on top of chronic kidney failure (stage 3), present on admission with associated azotemia and hyperkalemia. Active. - Likely secondary to acute blood loss and AIN - Abdominal ultrasound on 12/14/16 showed bilateral renal cysts and was unable to visualize aorta secondary to bowel gas. Aorta visualized on ultrasound today and not significant change in diameter of AAA. - Pt underwent dialysis for 3 days - Nephrology consulted and following. Their time and recommendations are appreciated. - Normal saline IV fluids 2. Acute on chronic iron deficiency anemia (and of kidney disease), present on admission. Improving. - Initially Hgb 9/HCT 27.6%, today Hgb 7/HCT 22 - No sign of active bleeding at this time, no RBC fragments seen on smear - Patient received 2 units of crossed and matched PRBCs 2 days ago and Hgb stable at 7.1 and HCT 22.6 - Stool occult blood pending. Discussed with lab, initial stool occult blood test was canceled by them, and the second order for stool occult blood was not done because the stool was used for a C. difficile PCR. Awaiting patient to have another bowel movement. -Patient received Aranesp injection and iron transfusion and iron transfusion ordered for tomorrow 3. Increasing weakness, acute, present on admission - May be due to some dehydration and worsening renal function. - Respiratory PCR also positive for RSV - further management as noted above and below - Physical therapy - Patient can be out of bed as tolerated - Consider home health services to continue physical therapy and nursing to help with indwelling catheter flushes 4. Sepsis, acute, present on admission. Improving. -On admission WBC 18.9 and heart rate 103 bpm, and likely source of infection pneumonia or urinary tract infection. Chest x-ray on 12/24/16 showed possible developing lower lobe pneumonia. UA showed trace bacteria, positive leukocyte esterase, and 6-10 WBC. -Patient is RSV positive -Sputum culture grew Staph. aureus, saenz-sensitive -Urine culture grew mixed jeffrey. -Elevated WBC, which is improving, could be secondary to recent antibiotic use and elevated procalcitonin may be related to current RASTA -Infectious disease consulted and followed. His time and recommendations were appreciated. -Holding antibiotics at this time and will continue to monitor vital signs and pt's signs and symptoms. -Urethral culture shows growth of E.coli with ampicillin resistant 5. URI, acute, present on admission. Active. - Most likely related to RSV infection. Less likely, aspiration pneumonia with reported possible witness aspiration during initial H&P for admission to the hospital or [facility] given recent hospitalization. - Lactic acid within normal limits - Continue to monitor WBC every other day. Monitor temperature and procalcitonin daily - See #3 above -Sputum culture as above - Consider a repeat chest x-ray if continued productive cough, fever, increase in WBC 6. Purulent urethral drainage, acute, present on admission. Active - UA showed trace bacteria, positive leukocyte esterase, and 6-10 WBC but urine culture grew mixed jeffrey. - Culture pending shows growth of E. coli as above - Discuss with infectious disease tomorrow if need for antibiotics based on urine and sputum cultures 7. Elevated liver enzymes - Initial ALT 167, alk phos 217, today ALT was 54 and alk phos within normal limits - PT/PTT within normal limits - Prior abdominal ultrasound on 12/14/16 showed fatty infiltration; however, finding is nonspecific - Continue to monitor 8. Hyperkalemia, acute, present on admission. Improved. - dialysis as noted above 9. Abdominal mass, chronic, present on admission. Stable. - Patient has history of abdominal aortic aneurysm. 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 Hyperglycemia in this patient with type II diabetes (DM2, uncontrolled), acute, present on admission - continue with sliding scale and basal insulin - follow 11. DVT prophylaxis: - Per notes by Dr. Pompa: "In 2009 he had a perioperative DVT. Was placed on Coumadin, then had significant bleeding issues in the surgical bed and the Coumadin was discontinued and he had an IVC filter since then that was never removed. ... 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 ... He is on Xarelto. 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 The V/ Q scan showed intermediate risk category and he had an elevated D-dimer, but because of his kidney function, a CT angio was deferred. Therefore, he has been empirically placed on Xarelto since September 2014 ." - Stop Xarelto given RASTA/subacute kidney injury - Resumed SC heparin because risk of PE 12. Chest pain. acute. present on admission. resolved. - right sided and reproducible with palpation - likely musculoskeletal - initial troponin negative x 2 but then later elevated but in context of acute renal failure and anemia - continue supportive care and follow 13. History of COPD with possible acute exacerbation - no significant wheezing on exam - continue with oxygen - Neb treatment standing and as needed 14. Acute RSV infection - supportive care and droplet precaution 15. Acute hypotension. present on admission. improving. - possible acute sepsis vs volume depletion vs cardiogenic etiology - echocardiogram shows EF >80% as described above 16. Acute on chronic lumbago - continue with supportive care Pain Evaluation: Adequate Pain Control VTE Prophylaxis: SCDs VTE Mechanical Devices: Intermittant Pneumatic CD Resuscitation Status: CPR: Attempt Resuscitation Time spent 30 minutes Belia Coleman DO Dec 30, 2016 18:16 Chavez Collier MD Dec 31, 2016 13:45
[2016-12-30] MEDS ORDERED: Ipratropium 0.02% 0.5 mg/2.5 mL Inhalation Solution NEB ONE (20:06)
[2016-12-30] MEDS: Insulin GLARgine 100 Unit/mL Syringe SUBQ SCH (21:50)
[2016-12-31] VITALS (15 sets, daily range): BP systolic 104–130; BP diastolic 56–69; PULSE 75–103; RESP 16–24; O2SAT 92–98
[2016-12-31] MEDS: Heparin 5,000 Unit/mL Inj SUBQ SCH ×3 (00:37→18:20)
[2016-12-31 04:12] LABS: BASOPHILS % (AUTO) 0.1 % (0-3); EOSINOPHILS % (AUTO) 2.1 % (0-5); MONOCYTES % (AUTO) 6.7 % (4-12); Mean Corpuscular Hemoglobin 29.9 pg (27.0-35.0); Mean Corpuscular Volume 94.4 fL (81-100); NEUTROPHILS % (AUTO) 77.9 % (40-74); Platelet Count 231 bil/L (150-400)
[2016-12-31 04:28] LABS: Magnesium 1.7 mg/dL (1.6-2.6); Phosphorus 3.5 mg/dL (2.5-4.9)
[2016-12-31] MEDS: Albuterol-Ipratropium 3 mL Inhalation Solution NEB SCH ×4 (06:01→19:55)
[2016-12-31] MEDS: Insulin Human REGular 300 Unit/3 mL Inj SUBQ SCH ×4 (07:30→21:07)
[2016-12-31] MEDS ORDERED: Iron Sucrose Inj 200 MG in 0.9% Sodium Chloride 100 ML IV ONE (08:00)
--- NOTE | 2016-12-31 11:54 | PCM.PNMED ---
Subjective Date of Service Dec 31, 2016 Subjective no new complaints. family is at the bedside. good appetite. no CP/SOB. Exam Vital Signs Vital Sign - Last Date Time Temp Pulse Resp B/P Pulse Ox O2 Delivery O2 Flow Rate FiO2 12/31/16 08:09 Supplement Oxygen 12/31/16 07:55 36.5 75 22 105/56 98 2.00 Intake and Output 12/30/16 12/30/16 12/31/16 Cumulative From/Thru 15:00 23:00 07:00 12/23/16 11:04 - 12/31/16 05:33 Intake Total 1512 ml 944 ml 72001 ml Output Total 1700 ml 2100 ml 46898 ml Balance -188 ml -1156 ml -6590 ml Intake Oral 337 ml 637 ml 8651 ml IV Total 1175 ml 307 ml 4439 ml Packed Cells 675 ml Output Urine Total 1700 ml 2100 ml 90919 ml Ultrafiltrate 1600 ml # Bowel Movements 1 1 Exam General appearance: Awake, alert, oriented x3, in no acute distress. HEENT: Mild pallor. No jaundice. No JVD. No lymphadenopathy. No thyroid enlargement. Atraumatic. Moist mucous membranes. Heart: Regular rhythm. Normal S1 and S2. No murmurs, rubs, or gallops. Lungs: Clear to auscultation bilaterally. No wheezing. No rhonchi. Abdomen: Soft, active bowel sounds. Nontender, nondistended. No hepatosplenomegaly. Extremities: No edema, cyanosis, or clubbing of the fingers. : dey cath in place with yellowish urine. Lab and Diagnostics Result Diagram: 12/31/16 0350 12/31/16 0350 X-Rays, CTs and MRIs PROCEDURE: X-RAY CHEST ONE VIEW, PORTABLE IMPRESSION: 1. Findings compatible with COPD redemonstrated without acute consolidation. Approved by: Subhash Escalona M.D. on 12/23/2016 at 11:44 Date of Service: 12/24/16 1317 PROCEDURE: X-RAY CHEST ONE VIEW, PORTABLE IMPRESSION: 1. Possible developing left lower lobe pneumonia. Correlate clinically with short interval followup recommended. Approved by: Jesus Alberto Morillo M.D. on 12/24/2016 at 13:45 PROCEDURE: US ABDOMEN IMPRESSION: 1. Echogenic liver. Finding typically represents fatty infiltration; however, finding is nonspecific and correlation with clinical and laboratory findings is recommended to exclude other etiologies including hepatic cirrhosis. 2. Status post cholecystectomy. 3. Nonvisualization of the abdominal aorta and the iliac vasculature secondary to bowel gas. 4. Renal cysts. Approved by: Claudette Morgan MD, PhD on 12/14/2016 at 12:38 Cardiac Echo Impressions Echocardiogram Report Interpretation Summary The left ventricular cavity is small and underfilled. The left ventricle is hyperdynamic. The ejection fraction is estimated to be >80%. The echo findings are consistent with moderate dynamic left ventricular intracavitary obstruction. Consider aggressive IV hydration. The right ventricle grossly appears normal in size with probable normal systolic function. Pulmonary artery pressures cannot be estimated because of the lack of a measurable TR jet velocity. The left atrium grossly appears normal in size. The right atrium grossly appears normal in size. There is no significant valvular heart disease. The aortic root is mildly dilated. The ascending aorta is mildly enlarged. There is a trivial pericardial effusion noted. There is an anterior echo-free space consistent with a fat pad. Reading Physician: PM Additional Diagnostics PROCEDURE: US AORTA RETROPERITONEAL LIMITED IMPRESSION: 1. Mild fusiform aneurysm of mid aorta measuring up to 3.6 x 4.0 cm. Recommend followup ultrasound in 12 months. Approved by: Jose De Jesus Velarde M.D. on 12/26/2016 at 9:32 Assessment & Plan 1. RASTA. - multifactorial: ATN/AIN and obstruction. - s/p HD. - now in recovery phase. 2. Hypomagnesemia. - improving. 3. Acute on chronic anemia. - s/p aranesp injection on 12/29. - s/p IV venofer. - Hb is stable. 4. Stage IIIc bladder cancer and low-grade prostate cancer status post prostatectomy and bladder reconstruction. 5. Recurrent UTIs. 6. COPD. Plan: d/c IVF. 200 mg IV venofer today. disposition: [facility] within 24-48 hr. VTE Prophylaxis: SCDs VTE Mechanical Devices: Intermittant Pneumatic CD Resuscitation Status: CPR: Attempt Resuscitation Felisha Rob MD Dec 31, 2016 11:54
--- NOTE | 2016-12-31 12:21 | NUR ---
Discharge from PT; ambulate w/Nsg Pt has met all PT goals and is discharged from further PT at this time and is released to ambulate w/nsg w/FWW 2-3x/day as pt tolerates.
--- NOTE | 2016-12-31 14:38 | NUR ---
took over patient care at 2pm
--- NOTE | 2016-12-31 16:59 | NUR ---
Social Work Note: Continued Discharge Planning Data& Assessment: Per PT, pt is cleared to go home and walked 200ft. SW met with pt and pt at bedside to discuss discharge planning, Pt very upset that pt no longer meets SNF criteria. Per pt request, SW sent referral to [facility]. Kailyn from [facility] also agreed that pt does not meet criteria for SNF. Pt anxious about catheter flushes at home. SW discussed home health services and also requested the nephrology meet with pt and pt family again to go over catheter care recommendations. Pt and pt family more understanding and agreeable to plan and will think about home health preferences. SW to continue to follow. Plan: Anticipated discharge home via POV when medically ready with home health. SW to follow up regarding HH preference. SW to continue to follow. AYLIN Lopez
--- NOTE | 2016-12-31 18:37 | PCM.PNMED ---
Subjective Date of Service Dec 31, 2016 Subjective Mr. Whittaker is a 76-year-old male who has a history of O2 dependent COPD and was recently admitted at [facility] from December 13 to December 19 with acute kidney injury secondary to ATN due to Bactrim, he also has a history of a type IV RTA, history of stage IIIc bladder cancer and low-grade prostate cancer status post prostatectomy and bladder reconstruction. Today, he has a cough but it has not worsened. He does not have chest pain, dyspnea, fever, or chills. He denies abdominal pain. He had another bowel movement yesterday and reports that it was dark. Exam Vital Signs Vital Sign - Last Date Time Temp Pulse Resp B/P Pulse Ox O2 Delivery O2 Flow Rate FiO2 12/31/16 16:48 84 18 94 Nasal Cannula 2.00 12/31/16 12:06 36.6 104/58 Intake and Output 12/30/16 12/30/16 12/31/16 Cumulative From/Thru 15:00 23:00 07:00 12/23/16 11:04 - 12/31/16 05:33 Intake Total 1512 ml 944 ml 83489 ml Output Total 1700 ml 2100 ml 33444 ml Balance -188 ml -1156 ml -6590 ml Intake Oral 337 ml 637 ml 8651 ml IV Total 1175 ml 307 ml 4439 ml Packed Cells 675 ml Output Urine Total 1700 ml 2100 ml 83622 ml Ultrafiltrate 1600 ml # Bowel Movements 1 1 Exam General: Alert, Cooperative Head: Normal Eyes: PERRLA, EOMI, Scleral Anicteric Nose: Mucous Membr Moist/Dustin Mouth: Mucous Membr Moist/Dustin Neck: Supple Chest & Lungs: Decreased breath sounds bilaterally. Clear to auscultation bilaterally. No rales, rhonchi, or wheezing Cardiovascular: Regular Rate/Rhythm, no murmurs, gallop, or clicks Pulses: Normal carotid, radial, femoral, DP, PT Abdomen: Palpable midline mass. Non-tender, Non-distended, Normoactive bowel tones, Soft Extremities: No cyanosis/clubbing/edma bilat Neurological: Grossly Neurologically Intact, Normal Speech IVs and Medications Medications Reviewed: Medications were reviewed in detail Lab and Diagnostics Result Diagram: 12/31/16 0350 12/31/16 0350 X-Rays, CTs and MRIs PROCEDURE: X-RAY CHEST ONE VIEW, PORTABLE IMPRESSION: 1. Findings compatible with COPD redemonstrated without acute consolidation. Approved by: Subhash Escalona M.D. on 12/23/2016 at 11:44 Date of Service: 12/24/16 1317 PROCEDURE: X-RAY CHEST ONE VIEW, PORTABLE IMPRESSION: 1. Possible developing left lower lobe pneumonia. Correlate clinically with short interval followup recommended. Approved by: Jesus Alberto Morillo M.D. on 12/24/2016 at 13:45 PROCEDURE: US ABDOMEN IMPRESSION: 1. Echogenic liver. Finding typically represents fatty infiltration; however, finding is nonspecific and correlation with clinical and laboratory findings is recommended to exclude other etiologies including hepatic cirrhosis. 2. Status post cholecystectomy. 3. Nonvisualization of the abdominal aorta and the iliac vasculature secondary to bowel gas. 4. Renal cysts. Approved by: Claudette Morgan MD, PhD on 12/14/2016 at 12:38 Cardiac Echo Impressions Echocardiogram Report Interpretation Summary The left ventricular cavity is small and underfilled. The left ventricle is hyperdynamic. The ejection fraction is estimated to be >80%. The echo findings are consistent with moderate dynamic left ventricular intracavitary obstruction. Consider aggressive IV hydration. The right ventricle grossly appears normal in size with probable normal systolic function. Pulmonary artery pressures cannot be estimated because of the lack of a measurable TR jet velocity. The left atrium grossly appears normal in size. The right atrium grossly appears normal in size. There is no significant valvular heart disease. The aortic root is mildly dilated. The ascending aorta is mildly enlarged. There is a trivial pericardial effusion noted. There is an anterior echo-free space consistent with a fat pad. Reading Physician: PM Additional Diagnostics PROCEDURE: US AORTA RETROPERITONEAL LIMITED IMPRESSION: 1. Mild fusiform aneurysm of mid aorta measuring up to 3.6 x 4.0 cm. Recommend followup ultrasound in 12 months. Approved by: Jose De Jesus Velarde M.D. on 12/26/2016 at 9:32 Assessment & Plan 76-year-old male with history of O2 dependent COPD and was recently admitted at [facility] and discharged on 12/20/16 with acute kidney injury secondary to ATN due to Bactrim, also has a history of a type IV RTA induced, history of stage IIIc bladder cancer and low-grade prostate cancer status post prostatectomy and bladder reconstruction.Since discharge he has been having increasing weakness finds it difficult to get out of bed and stand up. Family reports possible episode of aspirating on food the night prior to presentation but has been having cough and generalized malaise before that as well. 1. Acute on chronic iron deficiency anemia (and of kidney disease), present on admission. Improving. - Initially Hgb 9/HCT 27.6%, today Hgb 7/HCT 22 - No sign of active bleeding at this time, no RBC fragments seen on smear - Patient received 2 units of crossed and matched PRBCs 2 days ago and Hgb stable at 7 and HCT 22.1 -Patient received Aranesp injection and 2 iron transfusions -Recommend follow up iron studies in 4-8 weeks after transfusions 2. Acute kidney injury on top of chronic kidney failure (stage 3), present on admission with associated azotemia and hyperkalemia. Active. - Likely secondary to acute blood loss and AIN - Abdominal ultrasound on 12/14/16 showed bilateral renal cysts and was unable to visualize aorta secondary to bowel gas. Aorta visualized on ultrasound today and not significant change in diameter of AAA. - Pt underwent dialysis for 3 days - Nephrology consulted and following. Their time and recommendations are appreciated. - Normal saline IV fluids stopped 3. URI, acute, present on admission. Active. - Most likely related to RSV infection. Less likely, aspiration pneumonia with reported possible witness aspiration during initial H&P for admission to the hospital or [facility] given recent hospitalization. - Lactic acid within normal limits - Continue to monitor WBC. Monitor temperature and procalcitonin daily - See #5 below - Sputum culture as above - Consider a repeat chest x-ray if worsened productive cough, fever, increase in WBC 4. Increasing weakness, acute, present on admission - May be due to some dehydration and worsening renal function. - Respiratory PCR also positive for RSV - further management as noted above and below - Physical therapy - Patient can be out of bed as tolerated - Consider home health services to continue physical therapy and nursing to help with indwelling catheter flushes if he does not qualify for SNF placement 5. Sepsis, acute, present on admission. Improving. -On admission WBC 18.9 and heart rate 103 bpm, and likely source of infection pneumonia or urinary tract infection. Chest x-ray on 12/24/16 showed possible developing lower lobe pneumonia. UA showed trace bacteria, positive leukocyte esterase, and 6-10 WBC. -Patient is RSV positive -Sputum culture grew Staph. aureus, saenz-sensitive -Urine culture grew mixed jeffrey. -Elevated WBC, which is improving, could be secondary to recent antibiotic use and elevated procalcitonin may be related to current RASTA -Infectious disease consulted and followed. His time and recommendations were appreciated. -Holding antibiotics at this time and will continue to monitor vital signs and pt's signs and symptoms. -Urethral culture shows growth of E.coli with ampicillin resistant -As patient is clinically improving and WBC is stable and he remains afebrile, cultures likely are part of normal jeffrey and pt does not need antibiotics at this time 6. Purulent urethral drainage, acute, present on admission. Active - UA showed trace bacteria, positive leukocyte esterase, and 6-10 WBC but urine culture grew mixed jeffrey. - Culture pending shows growth of E. coli as above 7. Elevated liver enzymes, present on admission. Improved. - Initial ALT 167, alk phos 217, today ALT was 54 and alk phos within normal limits - PT/PTT within normal limits - Prior abdominal ultrasound on 12/14/16 showed fatty infiltration; however, finding is nonspecific - Continue to monitor 8. Hyperkalemia, acute, present on admission. Improved. - dialysis as noted above 9. Abdominal mass, chronic, present on admission. Stable. - Patient has history of abdominal aortic aneurysm. 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 Hyperglycemia in this patient with type II diabetes (DM2, uncontrolled), acute, present on admission - continue with sliding scale and basal insulin - follow 11. DVT prophylaxis: - Per notes by Dr. Pompa: "In 2009 he had a perioperative DVT. Was placed on Coumadin, then had significant bleeding issues in the surgical bed and the Coumadin was discontinued and he had an IVC filter since then that was never removed. ... 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 ... He is on Xarelto. 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 The V/ Q scan showed intermediate risk category and he had an elevated D-dimer, but because of his kidney function, a CT angio was deferred. Therefore, he has been empirically placed on Xarelto since September 2014 ." - Stop Xarelto given RASTA/subacute kidney injury - Resumed SC heparin because risk of PE 12. Chest pain. acute. present on admission. resolved. - right sided and reproducible with palpation - likely musculoskeletal - initial troponin negative x 2 but then later elevated but in context of acute renal failure and anemia - continue supportive care and follow 13. History of COPD with possible acute exacerbation - no significant wheezing on exam - continue with oxygen - Neb treatment standing and as needed 14. Acute RSV infection - supportive care and droplet precaution 15. Acute hypotension. present on admission. improving. - possible acute sepsis vs volume depletion vs cardiogenic etiology - echocardiogram shows EF >80% as described above 16. Acute on chronic lumbago - continue with supportive care VTE Prophylaxis: SCDs VTE Mechanical Devices: Intermittant Pneumatic CD Resuscitation Status: CPR: Attempt Resuscitation Time spent 35 minutes Attending Statement Patient seen and examined with house staff. Agree with all attached documentation. Belia Coleman DO Dec 31, 2016 16:54 Chavez Collier MD Jan 08, 2017 07:32 Belia Coleman DO Dec 31, 2016 16:54
--- NOTE | 2016-12-31 19:52 | NUR ---
cough Given suction to pt yesterday for self suction due to persistent but weak cough. Pt stating unable to cough anything up. Today Pt stating he has been using suction, however pt still sounding congested. made aware. No new orders at this time.
[2016-12-31] MEDS: Insulin GLARgine 100 Unit/mL Syringe SUBQ SCH (21:07)
[2017-01-01] VITALS (11 sets, daily range): BP systolic 105–131; BP diastolic 61–71; PULSE 76–98; RESP 16–22; O2SAT 91–99
[2017-01-01] MEDS: Heparin 5,000 Unit/mL Inj SUBQ SCH ×3 (01:00→17:19)
[2017-01-01 03:45] LABS: BASOPHILS % (AUTO) 0.3 % (0-3); MONOCYTES % (AUTO) 7.4 % (4-12); Mean Corpuscular Hemoglobin 29.8 pg (27.0-35.0); Mean Corpuscular Volume 94.9 fL (81-100); NEUTROPHILS % (AUTO) 78.1 % (40-74); Platelet Count 303 bil/L (150-400)
--- NOTE | 2017-01-01 05:16 | NUR ---
Night without Complaint: Pt up to the chair early this morning and fell asleep in chair later this morning Pt did receive melatonin during the night. No complaints throughout the night. Pt continues with a productive cough using Yankauer suctioning. Pt stable. Panda catheter irrigated q 6 hours; 1700 mls of urinary output noted this morning. Call light within reach. Will cont. to monitor.
[2017-01-01] MEDS: Insulin Human REGular 300 Unit/3 mL Inj SUBQ SCH ×4 (07:30→21:02)
[2017-01-01] MEDS: Albuterol-Ipratropium 3 mL Inhalation Solution NEB SCH ×4 (10:03→20:00)
--- NOTE | 2017-01-01 12:13 | PCM.PNMED ---
Subjective Date of Service Jan 01, 2017 Subjective good UOP, no new complaint today. no CP/SOB. chronic LE edema, stable. mucous noted in dey cath. Exam Vital Signs Vital Sign - Last Date Time Temp Pulse Resp B/P Pulse Ox O2 Delivery O2 Flow Rate FiO2 01/01/17 11:59 36.5 84 18 116/65 97 Nasal Cannula 1.00 Intake and Output 12/31/16 12/31/16 01/01/17 Cumulative From/Thru 15:00 23:00 07:00 12/23/16 11:04 - 01/01/17 06:37 Intake Total 1031 ml 1099 ml 27133 ml Output Total 550 ml 1925 ml 34336 ml Balance 481 ml -826 ml -6935 ml Intake Oral 440 ml 1099 ml 79433 ml IV Total 591 ml 5030 ml Packed Cells 675 ml Output Urine Total 550 ml 1925 ml 44097 ml Ultrafiltrate 1600 ml # Bowel Movements 1 Exam General appearance: Awake, alert, oriented x3, in no acute distress. HEENT: Mild pallor. No jaundice. No JVD. No lymphadenopathy. No thyroid enlargement. Atraumatic. Moist mucous membranes. Heart: Regular rhythm. Normal S1 and S2. No murmurs, rubs, or gallops. Lungs: Clear to auscultation bilaterally. No wheezing. No rhonchi. Abdomen: Soft, active bowel sounds. Nontender, nondistended. No hepatosplenomegaly. Extremities: 2+ edema, cyanosis, or clubbing of the fingers. : dey cath in place with mucous yellowish urine. Lab and Diagnostics Result Diagram: 01/01/17 0330 01/01/17 0330 X-Rays, CTs and MRIs PROCEDURE: X-RAY CHEST ONE VIEW, PORTABLE IMPRESSION: 1. Findings compatible with COPD redemonstrated without acute consolidation. Approved by: Subhash Escalona M.D. on 12/23/2016 at 11:44 Date of Service: 12/24/16 1317 PROCEDURE: X-RAY CHEST ONE VIEW, PORTABLE IMPRESSION: 1. Possible developing left lower lobe pneumonia. Correlate clinically with short interval followup recommended. Approved by: Jesus Alberto Morillo M.D. on 12/24/2016 at 13:45 PROCEDURE: US ABDOMEN IMPRESSION: 1. Echogenic liver. Finding typically represents fatty infiltration; however, finding is nonspecific and correlation with clinical and laboratory findings is recommended to exclude other etiologies including hepatic cirrhosis. 2. Status post cholecystectomy. 3. Nonvisualization of the abdominal aorta and the iliac vasculature secondary to bowel gas. 4. Renal cysts. Approved by: Claudette Morgan MD, PhD on 12/14/2016 at 12:38 Cardiac Echo Impressions Echocardiogram Report Interpretation Summary The left ventricular cavity is small and underfilled. The left ventricle is hyperdynamic. The ejection fraction is estimated to be >80%. The echo findings are consistent with moderate dynamic left ventricular intracavitary obstruction. Consider aggressive IV hydration. The right ventricle grossly appears normal in size with probable normal systolic function. Pulmonary artery pressures cannot be estimated because of the lack of a measurable TR jet velocity. The left atrium grossly appears normal in size. The right atrium grossly appears normal in size. There is no significant valvular heart disease. The aortic root is mildly dilated. The ascending aorta is mildly enlarged. There is a trivial pericardial effusion noted. There is an anterior echo-free space consistent with a fat pad. Reading Physician: PM Additional Diagnostics PROCEDURE: US AORTA RETROPERITONEAL LIMITED IMPRESSION: 1. Mild fusiform aneurysm of mid aorta measuring up to 3.6 x 4.0 cm. Recommend followup ultrasound in 12 months. Approved by: Jose De Jesus Velarde M.D. on 12/26/2016 at 9:32 Assessment & Plan 1. RASTA. - multifactorial: ATN/AIN and obstruction. - s/p HD. - IVF d/c yesterday. - slightly worsened serum creatinine with LE edema. 2. Hyperkalemia. 3. Acute on chronic anemia. - s/p aranesp injection on 12/29. - s/p IV venofer. - Hb is stable. 4. Stage IIIc bladder cancer and low-grade prostate cancer status post prostatectomy and bladder reconstruction. 5. Recurrent UTIs. 6. COPD. Plan: repeat BMP, check CXR. flush dey cath. VTE Prophylaxis: SCDs VTE Mechanical Devices: Intermittant Pneumatic CD Resuscitation Status: CPR: Attempt Resuscitation Felisha Rob MD Jan 01, 2017 12:13
--- NOTE | 2017-01-01 13:34 | DRSVH ---
PROCEDURE: X-RAY CHEST ONE VIEW, PORTABLE ([id number]) INDICATIONS: Shortness of breath TECHNIQUE: One view of the chest was acquired. COMPARISON: [facility], CR, XR CHEST 1VW (PORTABLE), 12/24/2016, 13:20. FINDINGS: Surgical changes and devices: None. Lungs and pleura: No pleural effusions or pneumothorax. Lungs are clear. Mediastinum: Mediastinal contours appear normal. Heart size is prominent. Bones and chest wall: No suspicious bony lesions. Overlying soft tissues appear unremarkable. IMPRESSION: No acute cardiopulmonary disease. Dictated by: Javid GONZALES Interpreted: Iesha De La Rosa MD on 01/01/2017 at 13:33 Transcribed by: MIRANDA on 01/01/2017 at 13:33 Approved by: Iesha De La Rosa M.D. on 01/01/2017 at 16:47
--- NOTE | 2017-01-01 14:36 | NUR ---
NUTRITION FOLLOW-UP Assess: Pt is a 76 yo male admitted w/ increased weakness and RASTA w/ subacute kidney failure. Pt recently admitted to hospital for RASTA. Nephrology following. Femoral catheter placed for emergent dialysis, femoral catheter removed after dialysis on 12/26. Pt maintaining adequate PO intake. Pt sitting at side of bed eating lunch during visit. PMHx: Cholecystectomy, appendectomy, ORIF right fibula, HLD, HTN, DM, Sinus congestion/cataracts, PE/DVT postop anticoagulation therapy since 2013, COPD, Stage III Bladder Cancer, recurrent UTIs, Colonoscopy w/ removal of tubular adenoma transverse colon LABS: K 5.4, BUN 64, Glu 147, ALT 50 MEDICATIONS: Reviewed. CURRENT DIET: Consistent Carbohydrate + Gelatein BID, PO 100% GI symptoms/stool: BM x1 12/30 SKIN: Daniel 18; Stage II pressure injury per WC 12/25 ANTHROPOMETRICS: Current Wt: 123.9 kg BMI: 44.1 kg/m2 IBW: 63.8 kg ABW: 78.2 kg Admit Wt: 119.1 kg ESTIMATED NEEDS: COPD, BMI>40, Cancer, RASTA, Stage II pressure injury Calories: 4998-3331 kcal/day (30-35 kcal/kg ABW) Protein: 80-95 g/day (1.0-1.2 g/kg ABW) NUTRITION DIAGNOSIS: 1) Increased nutrient needs related to comorbidities as evidenced by COPD, Stage III Bladder Cancer, Stage II Pressure Injury - PERSISTS 2) Altered nutrition related lab values related to RASTA as evidenced by elevated BUN and Creatinine levels.---IMPROVING INTERVENTION: 1) Will continue Gelatein BID MONITOR/EVALUATE: PO intake, labs, wt, GI, nutrition status, POC. Will continue to monitor per moderate nutritional risk guidelines.
--- NOTE | 2017-01-01 16:09 | NUR ---
Catheter Irrigation/Refused Kayexalate Pt. catheter irrigated x2 today, urine is pale yellow with mucous strings. Pt. bladder scan prior to irrigation at ~1515 and bladder had 0mL. After irrigating bladder with 60mL of sterile water and watching the fluid drain into the dey bag we measured the bladder post irrigation and bladder had 0mL. Pt. refused to drink kayexalate due to bad experience, Pt. stated " I was throwing up for a while and I had to take zofran for about a week last time I took kayexalate". I educated Pt. on the purpose of the medication and Pt. still refused medication, even when I suggested it could be done rectally. was made aware.
--- NOTE | 2017-01-01 20:00 | NUR ---
Patient refused his neb tonight, says it makes him caough. SATS are 96/82 on 1L Breath sounds are clear and decreased, no distress noted. RN informed
[2017-01-01] MEDS: Insulin GLARgine 100 Unit/mL Syringe SUBQ SCH (20:57)
--- NOTE | 2017-01-01 21:26 | PCM.PNMED ---
Subjective Date of Service Jan 01, 2017 Subjective Mr. Whittaker is a 76-year-old male who has a history of O2 dependent COPD and was recently admitted at [facility] from December 13 to December 19 with acute kidney injury secondary to ATN due to Bactrim, he also has a history of a type IV RTA, history of stage IIIc bladder cancer and low-grade prostate cancer status post prostatectomy and bladder reconstruction. He continues to have a productive cough, which has not worsened. He does not have fever, chills, chest pain, or dyspnea. Exam Vital Signs Vital Sign - Last Date Time Temp Pulse Resp B/P Pulse Ox O2 Delivery O2 Flow Rate FiO2 01/01/17 12:46 76 16 94 Nasal Cannula 1.00 01/01/17 11:59 36.5 116/65 Intake and Output 12/31/16 12/31/16 01/01/17 Cumulative From/Thru 15:00 23:00 07:00 12/23/16 11:04 - 01/01/17 06:37 Intake Total 1031 ml 1099 ml 20747 ml Output Total 550 ml 1925 ml 98946 ml Balance 481 ml -826 ml -6935 ml Intake Oral 440 ml 1099 ml 58145 ml IV Total 591 ml 5030 ml Packed Cells 675 ml Output Urine Total 550 ml 1925 ml 36049 ml Ultrafiltrate 1600 ml # Bowel Movements 1 Exam General: Alert, Cooperative Head: Normal Eyes: PERRLA, EOMI, Scleral Anicteric Nose: Mucous Membr Moist/[place] Mouth: Mucous Membr Moist/[place] Neck: Supple Chest & Lungs: Decreased breath sounds bilaterally. Mild expiratory wheezing bilaterally. No rales or rhonchi Cardiovascular: Regular Rate/Rhythm, no murmurs, gallop, or clicks Pulses: Normal carotid, radial, femoral, DP, PT Abdomen: Palpable midline mass. Non-tender, Non-distended, Normoactive bowel tones, Soft Extremities: No cyanosis/clubbing/edma bilat Neurological: Grossly Neurologically Intact, Normal Speech IVs and Medications Medications Reviewed: Medications were reviewed in detail Lab and Diagnostics Result Diagram: 01/01/17 0330 01/01/17 1304 X-Rays, CTs and MRIs PROCEDURE: X-RAY CHEST ONE VIEW, PORTABLE IMPRESSION: 1. Findings compatible with COPD redemonstrated without acute consolidation. Approved by: Subhash Escalona M.D. on 12/23/2016 at 11:44 Date of Service: 12/24/16 1317 PROCEDURE: X-RAY CHEST ONE VIEW, PORTABLE IMPRESSION: 1. Possible developing left lower lobe pneumonia. Correlate clinically with short interval followup recommended. Approved by: Jesus Alberto Morillo M.D. on 12/24/2016 at 13:45 PROCEDURE: US ABDOMEN IMPRESSION: 1. Echogenic liver. Finding typically represents fatty infiltration; however, finding is nonspecific and correlation with clinical and laboratory findings is recommended to exclude other etiologies including hepatic cirrhosis. 2. Status post cholecystectomy. 3. Nonvisualization of the abdominal aorta and the iliac vasculature secondary to bowel gas. 4. Renal cysts. Approved by: Claudette Morgan MD, PhD on 12/14/2016 at 12:38 PROCEDURE: X-RAY CHEST ONE VIEW, PORTABLE ([id number]) IMPRESSION: No acute cardiopulmonary disease. Approved by: Iesha De La Rosa M.D. on 01/01/2017 at 16:47 Cardiac Echo Impressions Echocardiogram Report Interpretation Summary The left ventricular cavity is small and underfilled. The left ventricle is hyperdynamic. The ejection fraction is estimated to be >80%. The echo findings are consistent with moderate dynamic left ventricular intracavitary obstruction. Consider aggressive IV hydration. The right ventricle grossly appears normal in size with probable normal systolic function. Pulmonary artery pressures cannot be estimated because of the lack of a measurable TR jet velocity. The left atrium grossly appears normal in size. The right atrium grossly appears normal in size. There is no significant valvular heart disease. The aortic root is mildly dilated. The ascending aorta is mildly enlarged. There is a trivial pericardial effusion noted. There is an anterior echo-free space consistent with a fat pad. Reading Physician: PM Additional Diagnostics PROCEDURE: US AORTA RETROPERITONEAL LIMITED IMPRESSION: 1. Mild fusiform aneurysm of mid aorta measuring up to 3.6 x 4.0 cm. Recommend followup ultrasound in 12 months. Approved by: Jose De Jesus Velarde M.D. on 12/26/2016 at 9:32 Assessment & Plan 76-year-old male with history of O2 dependent COPD and was recently admitted at [facility] and discharged on 12/20/16 with acute kidney injury secondary to ATN due to Bactrim, also has a history of a type IV RTA induced, history of stage IIIc bladder cancer and low-grade prostate cancer status post prostatectomy and bladder reconstruction.Since discharge he has been having increasing weakness finds it difficult to get out of bed and stand up. Family reports possible episode of aspirating on food the night prior to presentation but has been having cough and generalized malaise before that as well. 1. Acute on chronic iron deficiency anemia (and of kidney disease), present on admission. Improving. - Initially Hgb 9/HCT 27.6%, today Hgb 7.6/HCT 24.2 - No sign of active bleeding at this time, no RBC fragments seen on smear - Patient received 2 units of crossed and matched PRBCs 2 days ago and Hgb stable at 7 and HCT 22.1 -Patient received Aranesp injection and 2 iron transfusions -Recommend follow up iron studies in 4-8 weeks after transfusions 2. Acute kidney injury on top of chronic kidney failure (stage 3), present on admission with associated azotemia and hyperkalemia. Active. - Likely secondary to acute blood loss and AIN - Abdominal ultrasound on 12/14/16 showed bilateral renal cysts and was unable to visualize aorta secondary to bowel gas. Aorta visualized on ultrasound today and not significant change in diameter of AAA. - Pt underwent dialysis for 3 days - Nephrology consulted and following. Their time and recommendations are appreciated. - Normal saline IV fluids stopped 3. Hyperkalemia, acute, present on admission. Active. -Potassium 5.4 initially this morning and upon recheck 5.7 -Patient is asymptomatic -Kayexalate ordered and patient refused after he had multiple episodes of vomiting while trying to take it. -Patient is on telemetry. Monitor for arrhythmias. 4. URI, acute, present on admission. Active. - Most likely related to RSV infection. Less likely, aspiration pneumonia with reported possible witness aspiration during initial H&P for admission to the hospital or [facility] given recent hospitalization. - Lactic acid within normal limits - Continue to monitor WBC. Monitor temperature and procalcitonin daily - See #5 below - Sputum culture as above - Consider a repeat chest x-ray today showed no acute cardiopulmonary disease 5. Increasing weakness, acute, present on admission - May be due to some dehydration and worsening renal function. - Respiratory PCR also positive for RSV - further management as noted above and below - Physical therapy - Patient can be out of bed as tolerated - Consider home health services to continue physical therapy and nursing to help with indwelling catheter flushes if he does not qualify for SNF placement 6. Sepsis, acute, present on admission. Improving. -On admission WBC 18.9 and heart rate 103 bpm, and likely source of infection pneumonia or urinary tract infection. Chest x-ray on 12/24/16 showed possible developing lower lobe pneumonia. UA showed trace bacteria, positive leukocyte esterase, and 6-10 WBC. -Patient is RSV positive -Sputum culture grew Staph. aureus, saenz-sensitive -Urine culture grew mixed jeffrey. -Elevated WBC, which is improving, could be secondary to recent antibiotic use and elevated procalcitonin may be related to current RASTA -Infectious disease consulted and followed. His time and recommendations were appreciated. -Holding antibiotics at this time and will continue to monitor vital signs and pt's signs and symptoms. -Urethral culture shows growth of E.coli with ampicillin resistant -As patient is clinically improving and WBC is stable and he remains afebrile, cultures likely are part of normal jeffrey and pt does not need antibiotics at this time 7. Purulent urethral drainage, acute, present on admission. Active - UA showed trace bacteria, positive leukocyte esterase, and 6-10 WBC but urine culture grew mixed jeffrey. - Culture pending shows growth of E. coli as above 8. Elevated liver enzymes, present on admission. Improved. - Initial ALT 167, alk phos 217, today ALT was 54 and alk phos within normal limits - PT/PTT within normal limits - Prior abdominal ultrasound on 12/14/16 showed fatty infiltration; however, finding is nonspecific - Continue to monitor 9. Abdominal mass, chronic, present on admission. Stable. - Patient has history of abdominal aortic aneurysm. 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 Hyperglycemia in this patient with type II diabetes (DM2, uncontrolled), acute, present on admission - continue with sliding scale and basal insulin - follow 11. DVT prophylaxis: - Per notes by Dr. Pompa: "In 2009 he had a perioperative DVT. Was placed on Coumadin, then had significant bleeding issues in the surgical bed and the Coumadin was discontinued and he had an IVC filter since then that was never removed. ... 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 ... He is on Xarelto. 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 The V/ Q scan showed intermediate risk category and he had an elevated D-dimer, but because of his kidney function, a CT angio was deferred. Therefore, he has been empirically placed on Xarelto since September 2014 ." - Stop Xarelto given RASTA/subacute kidney injury - Resumed SC heparin because risk of PE 12. Chest pain. acute. present on admission. resolved. - right sided and reproducible with palpation - likely musculoskeletal - initial troponin negative x 2 but then later elevated but in context of acute renal failure and anemia - continue supportive care and follow 13. History of COPD with possible acute exacerbation - no significant wheezing on exam - continue with oxygen - Neb treatment standing and as needed 14. Acute RSV infection - supportive care and droplet precaution 15. Acute hypotension. present on admission. improving. - possible acute sepsis vs volume depletion vs cardiogenic etiology - echocardiogram shows EF >80% as described above 16. Acute on chronic lumbago - continue with supportive care VTE Prophylaxis: SCDs VTE Mechanical Devices: Intermittant Pneumatic CD Resuscitation Status: CPR: Attempt Resuscitation Attending Statement The patient was seen and examined together with Dr. Coleman on 01/01/2017 and I agree with the history, exam and plan as outlined in the note above. . Belia Coleman DO Jan 01, 2017 13:59 Braydon Gerard MD Jan 02, 2017 07:50
[2017-01-02] VITALS (12 sets, daily range): BP systolic 100–123; BP diastolic 56–67; PULSE 70–94; RESP 18–24; O2SAT 91–99
[2017-01-02] MEDS: Heparin 5,000 Unit/mL Inj SUBQ SCH ×3 (01:12→20:57)
[2017-01-02 04:22] LABS: BASOPHILS % (AUTO) 0.3 % (0-3); EOSINOPHILS % (AUTO) 4.1 % (0-5); MONOCYTES % (AUTO) 7.6 % (4-12); Mean Corpuscular Hemoglobin 29.4 pg (27.0-35.0); Mean Corpuscular Volume 95.2 fL (81-100); NEUTROPHILS % (AUTO) 74.3 % (40-74); Platelet Count 300 bil/L (150-400)
--- NOTE | 2017-01-02 06:31 | NUR ---
Respiratory/Restful Night Pt continues on 1L NC and using PRN suctioning as he has difficulty clearing secretions. Pt has occasional cough which sounds congested, occasional wheezing w/ auscultation. Pt denies SOB. Sats high 90s on 1L NC, pt states he wears 1-2L at home during night. Overall pt appeared to sleep comfortably most of night between care interventions. No c/o pain. All vitals stable. Dey patent and draining to gravity, dey irrigated q6 hour.
[2017-01-02] MEDS: Insulin Human REGular 300 Unit/3 mL Inj SUBQ SCH ×4 (07:30→22:39)
[2017-01-02] MEDS: Albuterol-Ipratropium 3 mL Inhalation Solution NEB SCH ×4 (08:27→21:40)
[2017-01-02] MEDS ORDERED: Insulin Human REGular-Omnicell 100 Unit/mL IV ONE ×2 (09:40→18:30)
[2017-01-02] MEDS ORDERED: Albuterol 0.5% (5mg/mL) 20 mL Inhalation Solution NEB ONE (09:40)
[2017-01-02] MEDS ORDERED: Calcium GLUCOnate 10% (Gm) 1 Gm/10 mL Inj IVPUSH ONE (10:15)
[2017-01-02] MEDS ORDERED: Albuterol 2.5 mg/3 mL Inhalation Solution NEB ONE (10:20)
--- NOTE | 2017-01-02 10:37 | NUR ---
Social Work: Readiness for Discharge D: Pt discussed in am rounds. Timeline for discharge not reviewed. Pt was discharged from PT services with recommendation for home with HH. GEOPHYSICAL E LOGGER met with pt and at bedside to review discharge recommendations and finalize a discharge plan. GEOPHYSICAL E LOGGER reviewed HH recommendation. Pt and spouse both declined HH referral and state that they do not feel the pt will need this service. GEOPHYSICAL E LOGGER reviewed risks associated with going home without additional support. They state they understand these risks and know that they can request a referral from pt's PCP if they change their minds after discharge. A: Pt ambulating I P: Anticipate pt to discharge home with no social work needs once medically ready; pt and declining HH at this time. GEOPHYSICAL E LOGGER to continue to follow. AYLIN Rothman
[2017-01-02] MEDS ORDERED: Iron Sucrose Inj 200 MG in 0.9% Sodium Chloride 100 ML IV ONE (10:50)
--- NOTE | 2017-01-02 11:04 | PCM.PNMED ---
Subjective Date of Service Jan 02, 2017 Subjective He has no new complaints. He refused to take kayexalate. K 5.6, Cr 2.37 Exam Vital Signs Vital Sign - Last Date Time Temp Pulse Resp B/P Pulse Ox O2 Delivery O2 Flow Rate FiO2 01/02/17 08:25 70 18 98 Nasal Cannula 1.00 01/02/17 07:50 36.3 123/67 Intake and Output 01/01/17 01/01/17 01/02/17 Cumulative From/Thru 15:00 23:00 07:00 12/23/16 11:04 - 01/02/17 06:14 Intake Total 1036 ml 540 ml 28163 ml Output Total 1320 ml 2000 ml 02709 ml Balance -284 ml -1460 ml -8679 ml Intake Oral 1036 ml 540 ml 67819 ml IV Total 5030 ml Packed Cells 675 ml Output Urine Total 1320 ml 2000 ml 57174 ml Ultrafiltrate 1600 ml # Bowel Movements 1 2 Exam General appearance: Awake, alert, oriented x3, in no acute distress. HEENT: Mild pallor. No jaundice. No JVD. No lymphadenopathy. No thyroid enlargement. Atraumatic. Moist mucous membranes. Heart: Regular rhythm. Normal S1 and S2. No murmurs, rubs, or gallops. Lungs: Clear to auscultation bilaterally. No wheezing. No rhonchi. Abdomen: Soft, active bowel sounds. Nontender, nondistended. No hepatosplenomegaly. Extremities: 2+ edema, cyanosis, or clubbing of the fingers. : dey cath in place with mucous yellowish urine. Lab and Diagnostics Result Diagram: 01/02/17 0405 01/02/17 0405 X-Rays, CTs and MRIs PROCEDURE: X-RAY CHEST ONE VIEW, PORTABLE IMPRESSION: 1. Findings compatible with COPD redemonstrated without acute consolidation. Approved by: Subhash Escalona M.D. on 12/23/2016 at 11:44 Date of Service: 12/24/16 1317 PROCEDURE: X-RAY CHEST ONE VIEW, PORTABLE IMPRESSION: 1. Possible developing left lower lobe pneumonia. Correlate clinically with short interval followup recommended. Approved by: Jesus Alberto Morillo M.D. on 12/24/2016 at 13:45 PROCEDURE: US ABDOMEN IMPRESSION: 1. Echogenic liver. Finding typically represents fatty infiltration; however, finding is nonspecific and correlation with clinical and laboratory findings is recommended to exclude other etiologies including hepatic cirrhosis. 2. Status post cholecystectomy. 3. Nonvisualization of the abdominal aorta and the iliac vasculature secondary to bowel gas. 4. Renal cysts. Approved by: Claudette Morgan MD, PhD on 12/14/2016 at 12:38 PROCEDURE: X-RAY CHEST ONE VIEW, PORTABLE ([id number]) IMPRESSION: No acute cardiopulmonary disease. Approved by: Iesha De La Rosa M.D. on 01/01/2017 at 16:47 Cardiac Echo Impressions Echocardiogram Report Interpretation Summary The left ventricular cavity is small and underfilled. The left ventricle is hyperdynamic. The ejection fraction is estimated to be >80%. The echo findings are consistent with moderate dynamic left ventricular intracavitary obstruction. Consider aggressive IV hydration. The right ventricle grossly appears normal in size with probable normal systolic function. Pulmonary artery pressures cannot be estimated because of the lack of a measurable TR jet velocity. The left atrium grossly appears normal in size. The right atrium grossly appears normal in size. There is no significant valvular heart disease. The aortic root is mildly dilated. The ascending aorta is mildly enlarged. There is a trivial pericardial effusion noted. There is an anterior echo-free space consistent with a fat pad. Reading Physician: PM Additional Diagnostics PROCEDURE: US AORTA RETROPERITONEAL LIMITED IMPRESSION: 1. Mild fusiform aneurysm of mid aorta measuring up to 3.6 x 4.0 cm. Recommend followup ultrasound in 12 months. Approved by: Jose De Jesus Velarde M.D. on 12/26/2016 at 9:32 Assessment & Plan 1. RASTA - multifactorial: ATN/AIN and obstructive uropathy. - s/p HD. - serum creatinine relatively stable. 2. Hyperkalemia. - pt refused kayexalate. - suspected heaprin induced hyperkalemia vs RTA type 4. 3. Acute on chronic anemia. - s/p aranesp injection on 12/29. - s/p IV venofer last given on 12/31 4. Stage IIIc bladder cancer and low-grade prostate cancer status post prostatectomy and bladder reconstruction. 5. Recurrent UTIs. 6. COPD. Plan: decrease heparin 5000 units to Q 12 hr. medical management for hyperkalemia, RI, D50 and albuterol. will given venofer 200 mg IV today. VTE Prophylaxis: SCDs VTE Mechanical Devices: Intermittant Pneumatic CD Resuscitation Status: CPR: Attempt Resuscitation Felisha Rob MD Jan 02, 2017 10:58
[2017-01-02] MEDS ORDERED: 0.9% Sodium Chloride 250 ML ONE (12:32)
--- NOTE | 2017-01-02 18:11 | PCM.PNMED ---
Subjective Date of Service Jan 02, 2017 Subjective Mr. Whittaker is a 76-year-old male who has a history of O2 dependent COPD and was recently admitted at [facility] from December 13 to December 19 with acute kidney injury secondary to ATN due to Bactrim, he also has a history of a type IV RTA, history of stage IIIc bladder cancer and low-grade prostate cancer status post prostatectomy and bladder reconstruction. Mr. Whittaker states that his cough is much improved as well as his breathing. He does not have chest pain or dyspnea. Exam Vital Signs Vital Sign - Last Date Time Temp Pulse Resp B/P Pulse Ox O2 Delivery O2 Flow Rate FiO2 01/02/17 12:20 90 18 98 Nasal Cannula 1.00 01/02/17 11:43 36.6 106/58 Intake and Output 01/01/17 01/01/17 01/02/17 Cumulative From/Thru 15:00 23:00 07:00 12/23/16 11:04 - 01/02/17 06:14 Intake Total 1036 ml 540 ml 25294 ml Output Total 1320 ml 2000 ml 79991 ml Balance -284 ml -1460 ml -8679 ml Intake Oral 1036 ml 540 ml 32280 ml IV Total 5030 ml Packed Cells 675 ml Output Urine Total 1320 ml 2000 ml 27847 ml Ultrafiltrate 1600 ml # Bowel Movements 1 2 Exam General: Alert, Cooperative Head: Normal Eyes: PERRLA, EOMI, Scleral Anicteric Nose: Mucous Membr Moist/Addis Mouth: Mucous Membr Moist/Addis Neck: Supple Chest & Lungs: Decreased breath sounds bilaterally. Clear to auscultation bilaterally. No rales, wheezing, or rhonchi. Cardiovascular: Regular Rate/Rhythm, no murmurs, gallop, or clicks Pulses: Normal carotid, radial, femoral, DP, PT Abdomen: Palpable midline mass. Non-tender, Non-distended, Normoactive bowel tones, Soft Extremities: No cyanosis/clubbing/edma bilat Neurological: Grossly Neurologically Intact, Normal Speech IVs and Medications Medications Reviewed: Medications were reviewed in detail Lab and Diagnostics Result Diagram: 01/02/17 0405 01/02/17 1220 X-Rays, CTs and MRIs PROCEDURE: X-RAY CHEST ONE VIEW, PORTABLE IMPRESSION: 1. Findings compatible with COPD redemonstrated without acute consolidation. Approved by: Subhash Escalona M.D. on 12/23/2016 at 11:44 Date of Service: 12/24/16 1317 PROCEDURE: X-RAY CHEST ONE VIEW, PORTABLE IMPRESSION: 1. Possible developing left lower lobe pneumonia. Correlate clinically with short interval followup recommended. Approved by: Jesus Alberto Morillo M.D. on 12/24/2016 at 13:45 PROCEDURE: US ABDOMEN IMPRESSION: 1. Echogenic liver. Finding typically represents fatty infiltration; however, finding is nonspecific and correlation with clinical and laboratory findings is recommended to exclude other etiologies including hepatic cirrhosis. 2. Status post cholecystectomy. 3. Nonvisualization of the abdominal aorta and the iliac vasculature secondary to bowel gas. 4. Renal cysts. Approved by: Claudette Morgan MD, PhD on 12/14/2016 at 12:38 PROCEDURE: X-RAY CHEST ONE VIEW, PORTABLE ([id number]) IMPRESSION: No acute cardiopulmonary disease. Approved by: Iesha De La Rosa M.D. on 01/01/2017 at 16:47 Cardiac Echo Impressions Echocardiogram Report Interpretation Summary The left ventricular cavity is small and underfilled. The left ventricle is hyperdynamic. The ejection fraction is estimated to be >80%. The echo findings are consistent with moderate dynamic left ventricular intracavitary obstruction. Consider aggressive IV hydration. The right ventricle grossly appears normal in size with probable normal systolic function. Pulmonary artery pressures cannot be estimated because of the lack of a measurable TR jet velocity. The left atrium grossly appears normal in size. The right atrium grossly appears normal in size. There is no significant valvular heart disease. The aortic root is mildly dilated. The ascending aorta is mildly enlarged. There is a trivial pericardial effusion noted. There is an anterior echo-free space consistent with a fat pad. Reading Physician: PM Additional Diagnostics PROCEDURE: US AORTA RETROPERITONEAL LIMITED IMPRESSION: 1. Mild fusiform aneurysm of mid aorta measuring up to 3.6 x 4.0 cm. Recommend followup ultrasound in 12 months. Approved by: Jose De Jesus Velarde M.D. on 12/26/2016 at 9:32 PROCEDURE: X-RAY CHEST ONE VIEW, PORTABLE IMPRESSION: No acute cardiopulmonary disease. Approved by: Iesha De La Rosa M.D. on 01/01/2017 at 16:47 Assessment & Plan 76-year-old male with history of O2 dependent COPD and was recently admitted at [facility] and discharged on 12/20/16 with acute kidney injury secondary to ATN due to Bactrim, also has a history of a type IV RTA induced, history of stage IIIc bladder cancer and low-grade prostate cancer status post prostatectomy and bladder reconstruction.Since discharge he has been having increasing weakness finds it difficult to get out of bed and stand up. Family reports possible episode of aspirating on food the night prior to presentation but has been having cough and generalized malaise before that as well. 1. Hyperkalemia, acute, present on admission. Active. -He denies chest pain and shortness of breath -Potassium 5.6 initially this morning -Patient is asymptomatic -Kayexalate ordered and patient refused yesterday. -10 units of insulin, D50, and calcium gluconate given today -Potassium remains at 5.5 -Recheck potassium and then give repeat calcium gluconate, insulin, and D50 if necessary -Patient is on telemetry. Monitor for arrhythmias. -Low potassium diet -Consider diuretics as an outpatient since patient has a negative net volume currently. -VTE prophylaxis subcutaneous heparin decreased to every 12 hours 2. Acute on chronic iron deficiency anemia (and of kidney disease), present on admission. Improving. - Initially Hgb 9/HCT 27.6%, today Hgb 7.4/HCT 24 - No sign of active bleeding at this time, no RBC fragments seen on smear - Patient received 2 units of crossed and matched PRBCs earlier during admission -Patient received Aranesp injection and 3 iron transfusions -Recommend follow up iron studies in 4-8 weeks after transfusions 3. Acute kidney injury on top of chronic kidney failure (stage 3), present on admission with associated azotemia and hyperkalemia. Active. - Likely secondary to acute blood loss and AIN - Abdominal ultrasound on 12/14/16 showed bilateral renal cysts and was unable to visualize aorta secondary to bowel gas. Aorta visualized on ultrasound today and not significant change in diameter of AAA. - Pt underwent dialysis for 3 days - Nephrology consulted and following. Their time and recommendations are appreciated. - Normal saline IV fluids stopped 4. URI, acute, present on admission. Active. - Most likely related to RSV infection. Less likely, aspiration pneumonia with reported possible witness aspiration during initial H&P for admission to the hospital or [facility] given recent hospitalization. - Lactic acid within normal limits - Continue to monitor WBC. Monitor temperature. - Consider a repeat chest x-ray yesterday and it showed no acute cardiopulmonary disease 5. Increasing weakness, acute, present on admission - May be due to some dehydration and worsening renal function. - Respiratory PCR also positive for RSV - further management as noted above and below - Physical therapy - Patient can be out of bed as tolerated - Consider home health services to continue physical therapy and nursing to help with indwelling catheter flushes if he does not qualify for SNF placement 6. Sepsis, acute, present on admission. Improved. -On admission WBC 18.9 and heart rate 103 bpm, and likely source of infection pneumonia or urinary tract infection. Chest x-ray on 12/24/16 showed possible developing lower lobe pneumonia. UA showed trace bacteria, positive leukocyte esterase, and 6-10 WBC. -Patient is RSV positive -Sputum culture grew Staph. aureus, saenz-sensitive -Urine culture grew mixed jeffrey. -Elevated WBC, which is improving, could be secondary to recent antibiotic use and elevated procalcitonin may be related to current RASTA -Infectious disease consulted and followed. His time and recommendations were appreciated. -Holding antibiotics at this time and will continue to monitor vital signs and pt's signs and symptoms. -Urethral culture shows growth of E.coli with ampicillin resistant -As patient is clinically improving and he remains afebrile, cultures likely are part of normal jeffrey and pt does not need antibiotics at this time 7. Purulent urethral drainage, acute, present on admission. Active. -This is likely secondary to patient's bladder reconstruction which used part of his bowel. Patient's reports that this is chronic since his bladder reconstruction, and they were told it is mucus from his intestines. - UA showed trace bacteria, positive leukocyte esterase, and 6-10 WBC but urine culture grew mixed jeffrey. - Culture pending shows growth of E. coli as above 8. Elevated liver enzymes, present on admission. Improved. - Initial ALT 167, alk phos 217, today ALT was 45 and alk phos within normal limits - PT/PTT within normal limits - Prior abdominal ultrasound on 12/14/16 showed fatty infiltration; however, finding is nonspecific - Continue to monitor 9. Abdominal mass, chronic, present on admission. Stable. - Patient has history of abdominal aortic aneurysm. 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 Hyperglycemia in this patient with type II diabetes (DM2, uncontrolled), acute, present on admission - continue with sliding scale and basal insulin - follow 11. DVT prophylaxis: - Per notes by Dr. Pompa: "In 2009 he had a perioperative DVT. Was placed on Coumadin, then had significant bleeding issues in the surgical bed and the Coumadin was discontinued and he had an IVC filter since then that was never removed. ... 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 ... He is on Xarelto. 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 The V/ Q scan showed intermediate risk category and he had an elevated D-dimer, but because of his kidney function, a CT angio was deferred. Therefore, he has been empirically placed on Xarelto since September 2014 ." - Stop Xarelto given RASTA/subacute kidney injury - Resumed SC heparin because risk of PE 12. Chest pain. acute. present on admission. resolved. - right sided and reproducible with palpation - likely musculoskeletal - initial troponin negative x 2 but then later elevated but in context of acute renal failure and anemia - continue supportive care and follow 13. History of COPD with possible acute exacerbation - no significant wheezing on exam - continue with oxygen - Neb treatment standing and as needed 14. Acute RSV infection - supportive care and droplet precaution 15. Acute hypotension. present on admission. improving. - possible acute sepsis vs volume depletion vs cardiogenic etiology - echocardiogram shows EF >80% as described above 16. Acute on chronic lumbago - continue with supportive care VTE Prophylaxis: Sub-Q Heparin (Unfractionated), SCDs VTE Mechanical Devices: Intermittant Pneumatic CD Resuscitation Status: CPR: Attempt Resuscitation Attending Statement The patient was seen and examined together with Dr. Coleman on 01/02/2017 and I agree with the history, exam and plan as outlined in the note above. . Belia Coleman DO Jan 02, 2017 14:57 Braydon Gerard MD Jan 05, 2017 08:20
--- NOTE | 2017-01-02 19:53 | NUR ---
Eagerness To Go Home/Respiration Pt. is really eager to go home as he has stated multiple times thorough out shift. Pt. has stated "feeling disappointed with these empty promises of going home". I reassured Pt. that healthcare staff are doing their best to make sure he goes home with the best care given possible here at the hospital. Pt. was on room air after breakfast through out shift and did not complain of SOB. Pt. at this time is resting comfortably in bed watching TV.
[2017-01-02] MEDS: Insulin GLARgine 100 Unit/mL Syringe SUBQ SCH (22:37)
[2017-01-03 04:19] VITALS: BP 119/57; PULSE 82; RESP 20; O2SAT 99
[2017-01-03 04:48] VITALS: PULSE 73
--- NOTE | 2017-01-03 06:46 | NUR ---
Potassium/Pain Verified w/ night MD and both IV insulin and amp of D50 given per orders. Given late d/t new IV needed. Potassium down to 5.3 but then elevated again this morning to 5.6. MD notified. No new orders at this time. Pt c/o left generalized leg pain at start of night, pain at 8/10, given tylenol 325 and stated this was effective at bringing pain down to 4/10, he later stated no pain. Pt also c/o pain in right arm where IV was inserted, IV DC'd and new one started on left AC. No c/o arm pain since. With latest reassessments pt has denied any pain except when lab draws done.
[2017-01-03] MEDS: Insulin Human REGular 300 Unit/3 mL Inj SUBQ SCH ×2 (07:30→12:16)
[2017-01-03 07:48] VITALS: BP 127/67; PULSE 84; RESP 16; O2SAT 98
[2017-01-03] MEDS: Heparin 5,000 Unit/mL Inj SUBQ SCH (07:59)
[2017-01-03 08:00] VITALS: PULSE 80
[2017-01-03 09:15] VITALS: PULSE 78; RESP 20; O2SAT 97
[2017-01-03] MEDS: Albuterol-Ipratropium 3 mL Inhalation Solution NEB SCH (09:23)
--- NOTE | 2017-01-03 10:21 | PCM.DIMED ---
Belia Coleman DO 01/03/17 1021: Discharge Instructions Date of Service Jan 03, 2017 Dates of Hospitalization Dec 23, 2016 at 15:01 Diet Other (Low potassium diet) Activity Home Health Phyical Therapy Call your provider Fever or Chills, Shortness of breath, Bleeding, Chest pain, Vomitting, Excessive diarrhea, Weakness (unilateral) Patient Instructions You need to start a low potassium diet. You should avoid tomatoes, potatoes, avocados, and bananas. Foods that are low in potassium, and therefore, are encouraged include apples, apricots, blackberries, blueberries, strawberries, raspberries, cherries, cranberries, grapes, peaches, plumbs, watermelon, tangerine, pineapple, alfalfa sprouts, asparagus, green or wax beans, cabbage, carrots, cauliflower, celery, corn, cucumber, onions, parsley, green peas, green peppers, radish, spinach, squash, zucchini, chicken, turkey, tuna, eggs, shrimp, sunflower or pumpkin seeds, walnuts, almonds, cashews, peanuts, cottage cheese, and cheddar or vincentian cheese. You will start taking furosemide 20 mg once daily and fludrocortisone 0.1 mg once daily to help decrease your potassium level. Follow up with your primary care provider as previously scheduled on Friday with a follow up basic metabolic panel to monitor your potassium level and kidney function and a complete blood cell count to monitor your anemia. Discuss Xarelto further with your primary care provider or field placement director/ oncologist. Keep the catheter indwelling until you follow up with Dr. Bledsoe. It was placed on 12/23/2016 and needs to be changed within 1 month. Continue physical therapy with home health services and home health nursing to monitor vital signs and assist with catheter flushing as needed. Continue home oxygen and your nebulizers and inhalers as previously prescribed. Follow up with nephrology on Friday. Follow-up Provider: Garry Grullon MD Follow-up with PCP in: 1 week (as previously scheduled on 01/06/17) Provider: Claudette Bledsoe MD Follow-up in: 1 week Mid-level Provider (F9): Felisha Rob MD Follow-up with Mid-level in: Other (on 01/07/17) Braydon Gerard MD 01/05/17 0821: Discharge Instructions Attending's Statement The patient was seen and examined together with Dr. Coleman on 01/03/2017 and I agree with the history, exam and plan as outlined in the note above. . Belia Coleman DO Jan 03, 2017 10:21 Braydon Gerard MD Jan 05, 2017 08:21
[2017-01-03] MEDS ORDERED: Darbepoetin Alfa 40 mCg/0.4 mL Inj SUBQ STA (10:26)
[2017-01-03 11:19] VITALS: BP 114/65; PULSE 81; RESP 16; O2SAT 96
[2017-01-03] MEDS ORDERED: FLUD0.1T PO (12:11)
[2017-01-03] MEDS ORDERED: FUR20 PO (12:11)
--- NOTE | 2017-01-03 14:00 | NUR ---
Discharge Pt. discharged to home with and took all his belongings from room [address] [facility]. Pt. was given educational material on new prescriptions of furosemide and fludrocortisone acetate. Pt. IV taken out in left AC, intact, and asymptomatic. Pt. was instructed to follow up with his PCP scheduled on Friday01/06/17 at 220PM. Pt. was instructed to keep the indwelling catheter until he follows up with Dr. Bledsoe and was told it placed on 12/23/2016 and needs to be changed within 1 month. I also instructed Pt. that Dr. Elias office would contact him due to scheduling issues. Pt. stated he understood, Pts. wanted to know how to irrigate catheter bag and I showed her how to do it with a syringe and sterile water as I proceeded to irrigate Pts. bladder one more time before he left. After demonstration was shown Pts. stated she understood. Pt. left in wheel chair content from [facility] floor.
--- NOTE | 2017-01-03 14:14 | PCM.PNMED ---
Subjective Date of Service Jan 03, 2017 Subjective refused to take kayexalate, K steady at 5.4-5.6. Exam Vital Signs Vital Sign - Last Date Time Temp Pulse Resp B/P Pulse Ox O2 Delivery O2 Flow Rate FiO2 01/03/17 11:19 36.7 81 16 114/65 96 Nasal Cannula 1.00 Intake and Output 01/02/17 01/02/17 01/03/17 Cumulative From/Thru 15:00 23:00 07:00 12/23/16 11:04 - 01/03/17 06:12 Intake Total 1260 ml 200 ml 80317 ml Output Total 1610 ml 2000 ml 28010 ml Balance -350 ml -1800 ml -02980 ml Intake Oral 1040 ml 200 ml 82983 ml IV Total 220 ml 5250 ml Packed Cells 675 ml Output Urine Total 1610 ml 2000 ml 37358 ml Ultrafiltrate 1600 ml # Bowel Movements 2 Exam General appearance: Awake, alert, oriented x3, in no acute distress. HEENT: Mild pallor. No jaundice. No JVD. No lymphadenopathy. No thyroid enlargement. Atraumatic. Moist mucous membranes. Heart: Regular rhythm. Normal S1 and S2. No murmurs, rubs, or gallops. Lungs: Clear to auscultation bilaterally. No wheezing. No rhonchi. Abdomen: Soft, active bowel sounds. Nontender, nondistended. No hepatosplenomegaly. Extremities: 1+ edema, cyanosis, or clubbing of the fingers. : dey cath in place with mucous yellowish urine. Lab and Diagnostics Result Diagram: 01/03/17 0323 01/03/17 0323 X-Rays, CTs and MRIs PROCEDURE: X-RAY CHEST ONE VIEW, PORTABLE IMPRESSION: 1. Findings compatible with COPD redemonstrated without acute consolidation. Approved by: Subhash Escalona M.D. on 12/23/2016 at 11:44 Date of Service: 12/24/16 1317 PROCEDURE: X-RAY CHEST ONE VIEW, PORTABLE IMPRESSION: 1. Possible developing left lower lobe pneumonia. Correlate clinically with short interval followup recommended. Approved by: Jesus Alberto Morillo M.D. on 12/24/2016 at 13:45 PROCEDURE: US ABDOMEN IMPRESSION: 1. Echogenic liver. Finding typically represents fatty infiltration; however, finding is nonspecific and correlation with clinical and laboratory findings is recommended to exclude other etiologies including hepatic cirrhosis. 2. Status post cholecystectomy. 3. Nonvisualization of the abdominal aorta and the iliac vasculature secondary to bowel gas. 4. Renal cysts. Approved by: Claudette Morgan MD, PhD on 12/14/2016 at 12:38 PROCEDURE: X-RAY CHEST ONE VIEW, PORTABLE ([id number]) IMPRESSION: No acute cardiopulmonary disease. Approved by: Iesha De La Rosa M.D. on 01/01/2017 at 16:47 Cardiac Echo Impressions Echocardiogram Report Interpretation Summary The left ventricular cavity is small and underfilled. The left ventricle is hyperdynamic. The ejection fraction is estimated to be >80%. The echo findings are consistent with moderate dynamic left ventricular intracavitary obstruction. Consider aggressive IV hydration. The right ventricle grossly appears normal in size with probable normal systolic function. Pulmonary artery pressures cannot be estimated because of the lack of a measurable TR jet velocity. The left atrium grossly appears normal in size. The right atrium grossly appears normal in size. There is no significant valvular heart disease. The aortic root is mildly dilated. The ascending aorta is mildly enlarged. There is a trivial pericardial effusion noted. There is an anterior echo-free space consistent with a fat pad. Reading Physician: PM Additional Diagnostics PROCEDURE: US AORTA RETROPERITONEAL LIMITED IMPRESSION: 1. Mild fusiform aneurysm of mid aorta measuring up to 3.6 x 4.0 cm. Recommend followup ultrasound in 12 months. Approved by: Jose De Jesus Velarde M.D. on 12/26/2016 at 9:32 PROCEDURE: X-RAY CHEST ONE VIEW, PORTABLE IMPRESSION: No acute cardiopulmonary disease. Approved by: Iesha De La Rosa M.D. on 01/01/2017 at 16:47 Assessment & Plan 1. RASTA - multifactorial: ATN/AIN and obstructive uropathy. - s/p HD. - serum creatinine relatively stable. 2. Hyperkalemia. - pt refused kayexalate. - suspected heparin induced hyperkalemia vs RTA type 4. 3. Acute on chronic anemia. - s/p aranesp injection on 12/29. - s/p IV venofer last given on 12/31, 01/02. 4. Stage IIIc bladder cancer and low-grade prostate cancer status post prostatectomy and bladder reconstruction. 5. Recurrent UTIs. 6. COPD. Plan: Add Florinef 0.1 mg daily and lasix 20 mg daily for RTA-4 Low salt diet. Check EKG before d/c. Add aranesp 40 mcg subQ injection today. f/u with renal on Friday. VTE Prophylaxis: Sub-Q Heparin (Unfractionated), SCDs VTE Mechanical Devices: Intermittant Pneumatic CD Resuscitation Status: CPR: Attempt Resuscitation Felisha Rob MD Jan 03, 2017 14:14
--- NOTE | 2017-01-05 12:25 | PCM.DC.MED ---
Discharge Summary Date of Service Jan 03, 2017 Dates of Hospitalization Date of Hospital Admission Dec 23, 2016 at 15:01 Date of Discharge: Jan 03, 2017 Providers: Admitting Physician: Sonia Laura MD Primary Care Physician: Garry Grullon MD Attending Physician: Sonia Laura MD Diagnosis at Time of Discharge Diagnosis at Time of Discharge 1. Hyperkalemia 2. Acute on chronic iron deficiency anemia (and of kidney disease) 3. Acute kidney injury on top of chronic kidney failure (stage 3) 4. URI 5. Increasing weakness 6. Sepsis 7. Purulent urethral drainage 8. Elevated liver enzymes 9. Abdominal mass 10. Hyperglycemia in this patient with type II diabetes (DM2, uncontrolled) 11. DVT prophylaxis 12. Chest pain 13. History of COPD with possible acute exacerbation 14. Acute RSV infection 15. Acute hypotension 16. Acute on chronic lumbago Procedures XRay, CTs & MRIs PROCEDURE: X-RAY CHEST ONE VIEW, PORTABLE IMPRESSION: 1. Findings compatible with COPD redemonstrated without acute consolidation. Approved by: Subhash Escalona M.D. on 12/23/2016 at 11:44 PROCEDURE: X-RAY CHEST ONE VIEW, PORTABLE IMPRESSION: 1. Possible developing left lower lobe pneumonia. Correlate clinically with short interval followup recommended. Approved by: Jesus Alberto Morillo M.D. on 12/24/2016 at 13:45 PROCEDURE: US ABDOMEN IMPRESSION: 1. Echogenic liver. Finding typically represents fatty infiltration; however, finding is nonspecific and correlation with clinical and laboratory findings is recommended to exclude other etiologies including hepatic cirrhosis. 2. Status post cholecystectomy. 3. Nonvisualization of the abdominal aorta and the iliac vasculature secondary to bowel gas. 4. Renal cysts. Approved by: Claudette Morgan MD, PhD on 12/14/2016 at 12:38 PROCEDURE: US AORTA RETROPERITONEAL LIMITED IMPRESSION: 1. Mild fusiform aneurysm of mid aorta measuring up to 3.6 x 4.0 cm. Recommend followup ultrasound in 12 months. Approved by: Jose De Jesus Velarde M.D. on 12/26/2016 at 9:32 PROCEDURE: X-RAY CHEST ONE VIEW, PORTABLE IMPRESSION: No acute cardiopulmonary disease. Approved by: Iesha De La Rosa M.D. on 01/01/2017 at 16:47 Cardiac Echo Impression Echocardiogram Report Interpretation Summary The left ventricular cavity is small and underfilled. The left ventricle is hyperdynamic. The ejection fraction is estimated to be >80%. The echo findings are consistent with moderate dynamic left ventricular intracavitary obstruction. Consider aggressive IV hydration. The right ventricle grossly appears normal in size with probable normal systolic function. Pulmonary artery pressures cannot be estimated because of the lack of a measurable TR jet velocity. The left atrium grossly appears normal in size. The right atrium grossly appears normal in size. There is no significant valvular heart disease. The aortic root is mildly dilated. The ascending aorta is mildly enlarged. There is a trivial pericardial effusion noted. There is an anterior echo-free space consistent with a fat pad. Reading Physician: PM Brief History From the history and physical performed by Dr. Sonia Laura on 12/23/2016: This is a 76-year-old male who has a history of O2 dependent COPD and was recently admitted at [facility] from every to December 19 with acute kidney injury secondary to ATN due to Bactrim, he also has a history of a type IV RTA induced, history of stage IIIc bladder cancer and low-grade prostate cancer status post prostatectomy and bladder reconstruction. He also was found to have elevated liver enzymes and hyperbilirubinemia during that hospitalization which was felt secondary to possible poor perfusion at some point in time and numbers progressively got better. Perfusion was most likely secondary to some hypotension during his admission or prior to admission. Since discharge he has been having increasing weakness finds it difficult to get out of bed and stand up. He notes that he has been drinking lots of fluids. And eating fine. He denies any chest pain does note progressive cough over at least the past several days. He denies any fevers or chills however. His evaluation in the emergency room today is significant for an elevated white count which is new since discharge 18.9 with 82% polys. At discharge his white count was approximately 9. He also today is found to be with a BUN of 171 and a creatinine of 4.04. Discharge numbers were BUN of 102 and creatinine of 3.86 potassium level at discharge was 3.7. Also found to have an elevated glucose of 299. Patient does note his glucose readings have been up to 460 at night and mid 200s during the day since discharge from hospital. He was discharged on 40 mg daily of prednisone. He notes improvement of lower extremity edema since discharge. Patient did have an episode while I was interviewing him of that appeared to be brief episode of possible aspiration he had been coughing and then was somewhat unresponsive did briefly for a second or so and then was alert. Monitor did not reveal any abnormalities in rate and rhythm was not able to see with the O2 sat was at the time of this episode. But it appeared that he may have aspirated at that time which led to that episode. Hospital Course 76-year-old male with history of O2 dependent COPD and was recently admitted at [facility] and discharged on 12/20/16 with acute kidney injury secondary to ATN due to Bactrim, also has a history of a type IV RTA induced, history of stage IIIc bladder cancer and low-grade prostate cancer status post prostatectomy and bladder reconstruction. 1. Hyperkalemia, acute, present on admission. Active. - He denied chest pain and shortness of breath. No changes seen on telemetry. - Kayexalate ordered and patient refused. - 10 units of insulin, Dextrose 50, and calcium gluconate were given. - Potassium remained elevated. - Low potassium diet started - Patient started on furosemide 20 mg once daily and fludrocortisone 0.1 mg once daily for renal tubular acidosis type 4 treatment - Follow up with nephrology on 01/07/2017 and he should have a complete metabolic panel rechecked and follow up with primary care provider on 01/06/2017 2. Acute on chronic iron deficiency anemia (and of kidney disease), present on admission. Stable. - Initially Hemoglobin 9/hematocrit 27.6%, on day of discharge hemoglobin 7.1/ hematocrit 23.5 - No sign of active bleeding at this time, no RBC fragments seen on smear - Patient received 2 units of crossed and matched PRBCs during admission - Patient received 3 Aranesp injections and 3 iron transfusions - Recommend follow up iron studies in 4-8 weeks and follow up complete blood cell count and appointment with nephrology on 01/07/2017 and primary care provider on 01/06/2017. 3. Acute kidney injury on top of chronic kidney failure (stage 3), present on admission with associated azotemia and hyperkalemia. Active. - Likely secondary to acute blood loss and acute interstitial nephritis and renal tubular acidosis type 4 and possible obstruction - Abdominal ultrasound on 12/14/16 showed bilateral renal cysts. - Patient underwent dialysis for 3 days - Nephrology consulted and followed. Their time and recommendations are appreciated. Follow up appointments as above. - Catheter to remain indwelling until seen by urology. 4. Upper respiratory infection, acute, present on admission. Active. - Most likely related to respiratory syncytial virus infection. Less likely, aspiration pneumonia with reported possible witness aspiration during initial history and physical for admission to the hospital or health care associated pneumonia given recent hospitalization. - Lactic acid within normal limits - Patient was afebrile and his cough improved. - Repeat chest x-ray showed no acute cardiopulmonary disease 5. Increasing weakness, acute, present on admission - Multifactorial due to dehydration, worsening renal function, and respiratory syncytial virus infection. - Further management as noted above and below - Physical therapy received during hospital stay and continue with home health services 6. Sepsis, acute, present on admission. Improved. - On admission white blood cell count 18.9 and heart rate 103 bpm, and likely source of infection pneumonia or urinary tract infection. Chest x-ray on showed possible developing lower lobe pneumonia. Urinalysis showed trace bacteria, positive leukocyte esterase, and 6-10 white blood cells. - Sputum culture grew Staph. aureus, saenz-sensitive - Urine culture grew mixed jeffrey. - Elevated WBC, which is improving, was secondary to recent prednisone use and mildly elevated procalcitonin was related to current acute kidney injury - Infectious disease consulted and followed. His time and recommendations were appreciated. - As patient was clinically improving and he remained afebrile, patient did not need antibiotics. 7. Purulent urethral drainage, acute, present on admission. Active. -Secondary to patient's bladder reconstruction which used part of his bowel. Patient's reported that this was chronic since his bladder reconstruction, and they were told it was mucus from his intestines. - Urinalysis showed trace bacteria, positive leukocyte esterase, and 6-10 white blood cells but urine culture grew mixed jeffrey. - Urethral culture showed growth of E. coli, which was likely secondary to bladder reconstruction 8. Elevated liver enzymes, present on admission. Improved. - Likely from fatty liver disease - Initial ALT 167, alkaline phosphatase 217, improved to ALT 45 and alkaline phosphatase within normal limits - PT/PTT within normal limits - Acute hepatitis panel negative on 12/13/16 - Prior abdominal ultrasound on 12/14/16 showed fatty infiltration; however, finding was nonspecific - Continue to monitor with complete metabolic panel as an outpatient and consider further work up if continued concern or transaminitis returns. 9. Abdominal mass, chronic, present on admission. Stable. - Patient has history of abdominal aortic aneurysm. - CT chest, abdomen, and pelvis without contrast on 12/06/16 showed stable intrarenal abdominal aortic aneurysm at 3.8 cm - Abdominal ultrasound on 12/14/16 showed nonvisualization of the abdominal aorta and the iliac vasculature secondary to bowel gas. Repeat ultrasound done during hospital stay did not show change in size of abdominal aortic aneurysm. 10. Hyperglycemia in this patient with type II diabetes (uncontrolled), present on admission - Hemoglobin A1c 7.5% - Continue to monitor as an outpatient 11. Deep vein thrombosis prophylaxis - Per notes by Dr. Pompa: "In 2009 he had a perioperative DVT. Was placed on Coumadin, then had significant bleeding issues in the surgical bed and the Coumadin was discontinued and he had an IVC filter since then that was never removed. 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 ... He is on Xarelto. 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 The V/Q scan showed intermediate risk - - Resumed Xarelto as an outpatient and recommend discussion as an outpatient about continued use 12. Chest pain. acute. present on admission. resolved. - Right sided and reproducible with palpation - Musculoskeletal secondary to cough - Initial troponin negative x 2 but then later elevated but in context of acute renal failure and anemia 13. History of chronic obstructive pulmonary disease with acute exacerbation secondary to respiratory syncytial virus above. - No significant wheezing on exam - Continued with oxygen - Nebulizer treatments were standing and as needed 14. Acute respiratory syncytial virus infection - Supportive care and droplet precaution 15. Acute hypotension. present on admission. Improved. - Multifactorial, acute sepsis and volume depletion - Echocardiogram shows EF >80% as described above 16. Acute on chronic lumbago - Continued with supportive care Exam Vital Signs (Last) Date Time Temp Pulse Resp B/P Pulse Ox O2 Delivery O2 Flow Rate FiO2 01/03/17 11:19 36.7 81 16 114/65 96 Nasal Cannula 1.00 Exam General: Alert, Cooperative Head: Normal Eyes: PERRLA, EOMI, Scleral Anicteric Nose: Mucous Membrane Moist/[place] Mouth: Mucous Membrane Moist/[place] Neck: Supple Chest & Lungs: Decreased breath sounds bilaterally. Clear to auscultation bilaterally. No rales, wheezing, or rhonchi. Cardiovascular: Regular Rate and Rhythm, no murmurs, gallop, or clicks Pulses: Normal carotid, radial, femoral, DP, PT Abdomen: Palpable midline mass. Non-tender, Non-distended, Normoactive bowel tones, Soft Extremities: No cyanosis, clubbing, or edema bilaterally Neurological: Grossly Neurologically Intact, Normal Speech Test 12/23/16 11:00 12/23/16 12:16 12/23/16 17:15 12/24/16 06:00 Hemoglobin A1c 7.5% (4.8-5.6) C-Reactive Protein 0.5mg/dL (0.0-0.5) Urine Color Straw (YELLOW) Urine Appearance Hazy (CLEAR,HAZY) Urine pH 7.0 (5.0-8.0) Urine Specific [place] 1.010 (1.003-1.035) Urine Protein Negativemg/dL (NEG,TRACE) Urine Glucose (UA) Negativemg/dL (NEGATIVE) Urine Ketones Negativemg/dL (NEGATIVE) Urine Occult Blood Small (NEGATIVE) Urine Nitrite Negative (NEGATIVE) Urine Bilirubin Negative (NEGATIVE) Urine Urobilinogen Normalmg/dL (NORMAL) Urine Leukocyte Esterase Trace (NEGATIVE) Urine RBC 3-10/hpf (0-2) Urine WBC 6-10/hpf (0-5) Urine Epithelial Cells Occasional/hpf (NONE-MOD) Urine Crystals None seen (NONE SEEN) Urine Bacteria Few/hpf (NONE-FEW) Urine Hyaline Casts None/lpf (NONE) Urine Granular Casts None seen (NONE SEEN) Urine Waxy Casts None seen (NONE SEEN) Urine Red Blood Cell Casts None seen (NONE SEEN) Urine White Blood Cell Casts None seen (NONE SEEN) Urine Mucus None seen (None Seen) Urine Trichomonas None seen (NONE SEEN) Urine Yeast None (NONE SEEN) Urinalysis Comment None Urine Culture Reflexed Indicated Erythrocyte Sedimentation Rate 60mm/hr (0-30) Prothrombin Time 12.1sec (8.1-12.5) Prothromb Time International Ratio 1.13ratio Activated Partial Thromboplast Time 27.5sec (22.8-33.0) Troponin T 0.040ug/L (0.0-0.011) Test 12/25/16 05:37 12/25/16 10:10 12/26/16 05:10 12/28/16 03:40 Band Neutrophils % 3% (1-5) Metamyelocytes % 1% (0-0) Myelocytes % 1% (0-0) Lactic Acid Level 1.1mmol/L (0.4-2.0) Nucleated Red Blood Cells 4/100 WBC (0-24) Hematology Comments Test 12/29/16 03:50 12/31/16 03:50 01/01/17 03:30 01/01/17 22:05 Iron Level 24ug/dL (35-150) Total Iron Binding Capacity 205ug/dL (250-450) Percent Iron Saturation 12%sat (15-50) Unsaturated Iron Binding 181.4ug/dL Phosphorus Level 3.5mg/dL (2.5-4.9) Magnesium Level 1.7mg/dL (1.6-2.6) Procalcitonin 0.35ng/mL (0.00-0.08) [place] Top Tube Received (Received) Test 01/02/17 04:05 01/03/17 03:23 White Blood Count 10.6th/mm3 (3.8-10.1) Red Blood Count 2.52mil/mm3 (4.40-5.80) Mean Corpuscular Volume 95.2fL (81-100) Mean Corpuscular Hemoglobin 29.4pg (27.0-35.0) Mean Corpuscular Hemoglobin Concent 30.8% (32.0-37.0) Red Cell Distribution Width 15.4% (12.3-15.4) Platelet Count 300bil/L (150-400) Neutrophils (%) (Auto) 74.3% (40-74) Lymphocytes (%) (Auto) 12.7% (14-46) Monocytes (%) (Auto) 7.6% (4-12) Eosinophils (%) (Auto) 4.1% (0-5) Basophils (%) (Auto) 0.3% (0-3) Total Bilirubin 0.5mg/dL (0.0-1.2) Aspartate Amino Transf (AST/SGOT) 21U/L (0-50) Alanine Aminotransferase (ALT/SGPT) 45U/L (0-44) Alkaline Phosphatase 94U/L (25-160) Total Protein 5.7g/dL (6.4-8.4) Albumin 3.0g/dL (3.4-5.0) Hemoglobin 7.1g/dL (13.8-17.2) Hematocrit 23.5% (41.0-50.0) Sodium Level 139mEq/L (134-144) Potassium Level 5.6mEq/L (3.5-5.2) Chloride Level 102mEq/L (97-108) Carbon Dioxide Level 22mmol/L (18-29) Blood Urea Nitrogen 65mg/dL (8-27) Creatinine 2.31mg/dL (0.76-1.27) Estimat Glomerular Filtration Rate 29mL/min (>59) Glucose Level 138mg/dL (60-99) Calcium Level 8.9mg/dL (8.5-10.1) Discharge Medications Discharge Medications Clotrimazole 1% (Clotrimazole 1%) 30 Ml Solution 30 ML TP BID (Reported) Cranberry Conc/C/Bacill Coag (Cranberry Tablet) 1 Each Tablet 2 EACH PO DAILY ( Reported) Fludrocortisone Acetate (Fludrocortisone Acetate) 0.1 Mg Tablet 0.1 MG PO DAILY Prescribed by: TEO COLEMAN DO Furosemide (Furosemide) 20 Mg Tab 20 MG PO DAILY Prescribed by: TEO COLEMAN DO Glipizide (Glipizide) 10 Mg Tablet 10 MG PO BID (Reported) Gluc/Dontae-MSM#2/C/D3/Marcos/Born (Gpirbtkmvl-Ceabgfjenah-FQO Tab) 1 Each Tablet 1 EACH PO DAILY (Reported) Insulin Glargine (Lantus U100 Insulin Vial) 100 Unit/Ml Vial 40 UNIT SUBQ DAILYWL (Reported) Insulin Glargine (Lantus U100 Insulin Vial) 100 Unit/Ml Vial 32 UNIT SUBQ HS ( Reported) Lovastatin (Lovastatin) 40 Mg Tablet 40 MG PO HS (Reported) Metoprolol Tartrate (Metoprolol Tartrate) 25 Mg Tablet 25 MG PO BID (Reported) Multivits-Min/FA/Lycopene/Lut (Centrum Silver Tablet) 1 Each Tablet 1 EACH PO DAILY (Reported) Rivaroxaban (Xarelto) 15 Mg Tablet 15 MG PO QPM (Reported) Tiotropium [place] (Spiriva) 18 Mcg Cap.w.dev 18 MCG IH DAILY (Reported) As needed Acetaminophen (Acetaminophen) 325 Mg Tablet 325 MG PO Q4H PRN PRN For Fever ( Reported) Albuterol HFA (Proair HFA) 8.5 Gm Hfa.aer.ad 2 PUFFS INHALATION Q4H PRN PRN For Shortness of Breath (Reported) Followup Plan Discharge Diet: Other (Low potassium diet) Discharge Activity: Home Health Phyical Therapy Patient Instructions You need to start a low potassium diet. You should avoid tomatoes, potatoes, avocados, and bananas. Foods that are low in potassium, and therefore, are encouraged include apples, apricots, blackberries, blueberries, strawberries, raspberries, cherries, cranberries, grapes, peaches, plumbs, watermelon, tangerine, pineapple, alfalfa sprouts, asparagus, green or wax beans, cabbage, carrots, cauliflower, celery, corn, cucumber, onions, parsley, green peas, green peppers, radish, spinach, squash, zucchini, chicken, turkey, tuna, eggs, shrimp, sunflower or pumpkin seeds, walnuts, almonds, cashews, peanuts, cottage cheese, and cheddar or [place] cheese. You will start taking furosemide 20 mg once daily and fludrocortisone 0.1 mg once daily to help decrease your potassium level. Follow up with your primary care provider as previously scheduled on Friday with a follow up basic metabolic panel to monitor your potassium level and kidney function and a complete blood cell count to monitor your anemia. Discuss Xarelto further with your primary care provider or quality rn/ oncologist. Keep the catheter indwelling until you follow up with Dr. Bledsoe. It was placed on 12/23/2016 and needs to be changed within 1 month. Continue physical therapy with home health services and home health nursing to monitor vital signs and assist with catheter flushing as needed. Continue home oxygen and your nebulizers and inhalers as previously prescribed. Follow up with nephrology on Friday. Follow-up Provider: Garry Grullon MD Follow-up with PCP in: 1 week (as previously scheduled on 01/06/17) Provider: Claudette Bledsoe MD Follow-up in: 1 week Mid-level Provider: Felisha Rob MD Follow-up with Mid-level in: Other (on 01/07/17) Time spent Greater than 30 minutes was spent in preparation of discharge with greater than 50% of that time dedicated to patient counseling and coordination of care. . Attending Statement The patient was seen and examined together with Dr. Coleman on 01/03/2017 and I agree with the history, exam and plan as outlined in the note above. . copies to: Felisha Rob MD; Garry Grullon MD; Goran Coker MD; Claudette Bledsoe MD, Marissa L DO Jan 03, 2017 19:58 Braydon Gerard MD Jan 18, 2017 15:33
== END 2017-01-03 14:09 | disposition home or self-care (01) | DRG 682 ==
LOC: EDUNIT# 10:46 → SED 10:46 → EDBD 10:46 → MPC 15:01 → OBSVTOIN 15:01 → MPC 15:56 → PCC 12-24 08:40
PROVIDERS: ADMIT Specialist; ATTEND Specialist
PROC: 06HM33Z Insertion of Infusion Device into Right Femoral Vein, Percutaneous Approach (ICD-10-PCS; principal; 2016-12-24)
PROC: 5A1D00Z (ICD-10-PCS; 2016-12-24)
PROC: 30233N1 Transfusion of Nonautologous Red Blood Cells into Peripheral Vein, Percutaneous Approach (ICD-10-PCS; 2016-12-25)
PROC: 5A1D00Z (ICD-10-PCS; 2016-12-25)
PROC: 5A1D00Z (ICD-10-PCS; 2016-12-26)
DX: N17.0 Acute kidney failure with tubular necrosis (principal); J69.0 Pneumonitis due to inhalation of food and vomit; A41.9 Sepsis, unspecified organism; J44.1 Chronic obstructive pulmonary disease with (acute) exacerbation; E87.2 Acidosis; D62 Acute posthemorrhagic anemia; J06.9 Acute upper respiratory infection, unspecified; B97.4 Respiratory syncytial virus as the cause of diseases classified elsewhere; E87.5 Hyperkalemia; E86.0 Dehydration; N03.9 Chronic nephritic syndrome with unspecified morphologic changes; E11.65 Type 2 diabetes mellitus with hyperglycemia; E78.5 Hyperlipidemia, unspecified; E11.21 Type 2 diabetes mellitus with diabetic nephropathy; I13.10 Hypertensive heart and chronic kidney disease without heart failure, with stage 1 through stage 4 chronic kidney disease, or unspecified chronic kidney disease; N18.3 Chronic kidney disease, stage 3 (moderate); E83.42 Hypomagnesemia; I95.9 Hypotension, unspecified; D63.1 Anemia in chronic kidney disease; Z85.46 Personal history of malignant neoplasm of prostate; Z85.51 Personal history of malignant neoplasm of bladder; Z79.4 Long term (current) use of insulin; Z87.891 Personal history of nicotine dependence; Z99.81 Dependence on supplemental oxygen; Z79.02 Long term (current) use of antithrombotics/antiplatelets; T37.0X5A Adverse effect of sulfonamides, initial encounter